=== PATIENT | male | born 1945 | race Caucasian/White ===

== ENCOUNTER 2020-04-24 08:23 | Outpatient (CLI) | payer MEDICARE ==
--- NOTE | 2020-04-24 08:55 | BD ---
EXAM: Bone densitometry using DEXA HISTORY: 74 yo female. Screening for postmenopausal osteoporosis FINDINGS: L1--bone mineral density 0.897 g/sq cm; T score -1.6 ; Z score -0.6 L2--bone mineral density 0.930 g/sq cm; T score -1.5 ; Z score -0.4 L3--bone mineral density 1.104 g/sq cm; T score 0.0 ; Z score 1.1 L4--bone mineral density 1.033 g/sq cm; T score -0.5 ; Z score 0.6 Total L1-L4--bone mineral density 0.999 g/sq cm; T score -0.8 ; Z score 0.2 Left femoral neck--bone mineral density0.691; T score -1.8 ; Z score -0.4 Total proximal left femur--bone mineral density 0.877; T score -1.0 ; Z score -0.2 The 10 year fracture risk for a major osteoporotic fracture is 7.3% and for a hip fracture is 2.4%. IMPRESSION: Osteopenia
== END 2020-04-24 08:24 | disposition home or self-care (01) ==
LOC: BICMAMMO 08:23
PROVIDERS: ATTEND Internal Medicine
DX: Z13.820 Encounter for screening for osteoporosis (principal); M85.852 Other specified disorders of bone density and structure, left thigh
CPT/HCPCS: 77080

== ENCOUNTER 2020-10-16 20:13 | Inpatient (IN) | payer MEDICARE ==
[2020-10-16] MEDS ORDERED: Acetaminophen 500 MG TAB ONE (20:40)
[2020-10-16] MEDS ORDERED: Albuterol 200 PUFF (6.7GM INHALER) ONE (20:57)
[2020-10-16] MEDS ORDERED: methylPREDNISolone Sod Succ/PF 125 MG/2 ML VIAL ONE (20:57)
[2020-10-16 21:21] LABS: #Lymphocytes 0.3 thou/uL (1.20-3.40); #Monocytes 0.4 thou/uL (0.11-0.59); #Neutrophils 5.4 thou/uL (1.40-6.50); %Basophils 0.2 % (0.0-1.0); %Eosinophils 0.1 % (0.0-10.0); %Lymphocytes 4.8 % (21.0-51.0); %Monocytes 6.4 % (0.0-10.0); %Neutrophils 88.5 % (42.0-75.0); Mean Corpuscular HGB CONC 33.8 g/dL (32.0-36.0); Mean Corpuscular Hemoglobin 32.1 pg (27.0-31.0); Mean Corpuscular Volume 94.9 fL (78.0-98.0); Mean Platelet Volume 7.7 fL (7.4-10.4); Platelet Count 136 thou/uL (130-400); RBC Distribution Width 12.1 % (11.5-14.5); Red Blood Cell (RBC) Count 4.35 mill/uL (4.70-6.10); White Blood Cell (WBC) Count 6.1 thou/uL (4.8-10.8)
--- NOTE | 2020-10-16 21:37 | RAD ---
PORTABLE CHEST: 10/16/20 PROVIDED CLINICAL HISTORY: Fever. FINDINGS: Comparison 09/17/17. Cardiac and mediastinal silhouette is unchanged in appearance. Median sternotomy changes and atherosc lerosis are redemonstrated. Emphysematous changes are again seen. There is no focal consolidation, pl eural fluid or pneumothorax apparent. IMPRESSION: No evidence for an acute cardiopulmonary process. POS: MIKE
[2020-10-16 21:40] LABS: ALT (SGPT) 34 U/L (8-55); AST (SGOT) 58 U/L (5-34); Albumin 3.9 g/dL (3.4-4.8); Alkaline Phosphatase 91 U/L (40-110); Anion Gap 17 mmol/L (10-20); BUN (Urea Nitrogen) 17 mg/dL (8.4-25.7); Bilirubin, Total 0.8 mg/dL (0.2-1.2); Calc. Creatinine Clearance 0 mL/min (70-130); Calcium 9.1 mg/dL (7.8-10.44); Carbon Dioxide 21 mmol/L (23-31); Chloride 100 mmol/L (98-107); Globulin 3.3 g/dL (2.4-3.5); Glucose 143 mg/dL (83-110); Potassium 4.2 mmol/L (3.5-5.1); Protein, Total 7.2 g/dL (5.8-8.1); Sodium 134 mmol/L (136-145)
[2020-10-16 22:41] LABS: SARS-CoV-2 NAA Rapid Test DETECTED (NotDetected)
[2020-10-17] MEDS ORDERED: Albuterol 200 PUFF (6.7GM INHALER) INH PRN ×2 (00:51→01:23)
--- NOTE | 2020-10-17 00:55 | PDOC.HHP ---
Hospitalist HPI - History of Present Illness SOB History of Present Illness: Mr. Oconnell is a 75-year-old male with a past medical history of hypertension, hyperlipidemia, status post AVR, CABG, GERD, COPD not on home O2, former tobacco use who presents with fever, myalgias, productive cough. Patient reports his symptoms began 3 days ago with fever and cough, now having shortness of breath. Patient reports he feels very weak and usually is able to ambulate with a walker, however does not have the strength to do so. He denies chest pain, dizziness, changes in vision, numbness, weakness, paresthesias. Patient also reports fevers as high as 103 at home. In emergency room initial vital signs 126/86, 99, 126, 24, 101.1, 9 2% on 2 L nasal cannula. EKG showed sinus tachycardia with no ST changes. Initial troponin 0 0.010. Chest x-ray with no acute findings. White blood cell count 6.1. H/H 14.0/41.2. Lactic acid 1.1. BUN/CR 17/0.92. AST/ALT 58/34. SARS-CoV-2 positive. Patient received albuterol inhaler, Levaquin, 1 L normal saline, 125 mg of methylprednisolone in the emergency room. Patient mated to hospital service for further work-up and monitoring. Hospitalist ROS - Review of Systems Constitutional: reports: fever, chills, weakness, malaise Eyes: denies: pain, vision change, conjunctivae inflammation, eyelid inflammation, redness, other ENT: denies: ear pain, ear discharge, nose pain, nose discharge, nose congestion, mouth pain, mouth swelling, throat pain, throat swelling, other Respiratory: reports: cough, shortness of breath. denies: dry, hemoptysis, SOB with excertion, pleuritic pain, sputum, wheezing, other Cardiovascular: denies: chest pain, palpitations, orthopnea, paroxysmal noc. dyspnea, edema, light headedness, other Gastrointestinal: denies: nausea, vomiting, abdominal pain, diarrhea, constipation, melena, hematochezia, other Genitourinary: denies: dysuria, frequency, incontinence, hematuria, retention, other Musculoskeletal: denies: neck pain, shoulder pain, arm pain, back pain, hand pain, leg pain, foot pain, other Skin: denies: rash, lesions, tin, bruising, other Neurological: denies: weakness, numbness, incoordination, change in speech, confusion, seizures, other - Medication Medications: Home medications include Simvastatin Atenolol No known drug allergies Hospitalist History - Past Medical History Other Medical History: Past medical history includes Hypertension Hyperlipidemia Aortic valve replacement CABG in 2011 GERD COPD not on home O2 - Past Surgical History Other Surgical History: Past surgical history includes CABG in 2012, AVR - Family History Other Family History: No pertinent family history - Social History Smoking Status: Former smoker Tobacco Type: cigarettes Alcohol: reports: None Drugs: reports: none Living Situation: With Family Activity level: uses cane/walker - Exam General Appearance: NAD, awake alert Eye: PERRL, anicteric sclera ENT: normocephalic atraumatic, no oropharyngeal lesions, moist mucosa Neck: supple, symmetric, no JVD, no thyromegaly, no lymphadenopathy, no carotid bruit Heart: RRR, no murmur, no gallops, no rubs, normal peripheral pulses Respiratory: CTAB, no wheezes, no rales, no ronchi, normal chest expansion, no tachypnea, normal percussion Gastrointestinal: soft, non-tender, non-distended, normal bowel sounds, no palpable masses, no hepatomegaly, no splenomegaly, no bruit Extremities: no cyanosis, no clubbing, no edema Skin: normal turgor, no lesions, no rashes Neurological: cranial nerve grossly intact, normal sensation to touch, no weakness, no focal deficits, no new deficit Musculoskeletal: generalized weakness, diffuse muscle atrophy Psychiatric: normal affect, normal behavior, A&O x 3 Psychiatric - other findings: Patient alert and oriented x4, however is easily confused during discussion Hospitalist Results - Labs Result Diagrams: 10/23/20 05:54 10/23/20 05:54 Lab results: WBC 6.1 thou/uL (4.8-10.8) 10/16/20 21:01 Hgb 14.0 g/dL (14.0-18.0) 10/16/20 21:01 Hct 41.2 % (42.0-52.0) L 10/16/20 21:01 MCV 94.9 fL (78.0-98.0) 10/16/20 21:01 Plt Count 136 thou/uL (130-400) 10/16/20 21:01 Neutrophils % 88.5 % (42.0-75.0) H 10/16/20 21:01 Sodium 134 mmol/L (136-145) L 10/16/20 21:01 Potassium 4.2 mmol/L (3.5-5.1) 10/16/20 21:01 Chloride 100 mmol/L (98-107) 10/16/20 21:01 Carbon Dioxide 21 mmol/L (23-31) L 10/16/20 21:01 BUN 17 mg/dL (8.4-25.7) 10/16/20 21:01 Creatinine 0.92 mg/dL (0.7-1.3) 10/16/20 21:01 Glucose 143 mg/dL (83-110) H 10/16/20 21:01 Lactic Acid 1.1 mmol/L (0.5-2.2) 10/16/20 21:01 Calcium 9.1 mg/dL (7.8-10.44) 10/16/20 21:01 Total Bilirubin 0.8 mg/dL (0.2-1.2) 10/16/20 21:01 AST 58 U/L (5-34) H 10/16/20 21:01 ALT 34 U/L (8-55) 10/16/20 21:01 Alkaline Phosphatase 91 U/L (40-110) 10/16/20 21:01 Troponin I Less than 0.010 ng/mL (< 0.028) 10/16/20 21:01 Serum Total Protein 7.2 g/dL (5.8-8.1) 10/16/20 21:01 Albumin 3.9 g/dL (3.4-4.8) 10/16/20 21:01 Hospitalist H&P A/P - Plan Plan: COVID-19 pneumonia 75M with Hx of COPD not on home O2, HTN, HLD, CAD s/p CABG and AVR presents with fevers, cough, and sob found to be COVID positive. WBC 6.1. CXR with no acute findings. Lactic acid 1.1. Patient with new oxygen requirement, now on 2L. Plan -Decadron, will see patient is candidate for remdesivir -Ceftriaxone, azithromycin -Supplemental oxygen -Tylenol, Robitussin -Vitamin C, zinc -We will obtain baseline inflammatory markers Acute hypoxic respiratory failure Patient with acute hypoxic respiratory failure secondary to COVID-19 pneumonia and COPD exacerbation. Patient with new oxygen requirement now on 2 L of oxygen nasal cannula to maintain O2 sat. We will continue supplemental oxygen and closely monitor respiratory status. Treatment as above. Plan -Supplemental oxygen -Treatment as above -Closely monitor respiratory status COPD exacerbation Suspect component of mild COPD exacerbation in setting of COVID infection. Patient reports improvement with proventil. Will continue steroids for COVID and closely monitor respiratory status. Plan -Duonebs prn -Supplemental oxygen -Closely monitor respiratory status Hyperlipidemia Continue home statin Hypertension Continue home antihypertensives once dosage confirmed Coronary artery disease S/p CABG and AVR in 2011. Hx of CAD, however ASA not listed on medication list. Will confirm and continue if needed. DVT prophylaxis- Lovenox FULL CODE Case discussed with Dr. Jack Yañez.
[2020-10-17] MEDS ORDERED: Ondansetron ODT 4 MG TAB PO PRN (01:16)
[2020-10-17] MEDS ORDERED: Acetaminophen 650 MG Suppository PR PRN (01:16)
[2020-10-17] MEDS ORDERED: Acetaminophen 325 MG TAB PO PRN (01:16)
[2020-10-17] MEDS ORDERED: Guaifenesin DM 100-10/5 ML UDCUP PO PRN (01:16)
[2020-10-17] MEDS ORDERED: Ondansetron PF 4 MG/2 ML Vial IVP PRN (01:16)
[2020-10-17 01:23] VITALS: BMI 24.3
[2020-10-17 01:44] LABS: Troponin I Less than 0.010 ng/mL (< 0.028)
[2020-10-17] MEDS: cefTRIAXone\\ROCEPHIN 1 GM in Sodium Chloride 0.9% 100 ML IVPB SCH (02:14)
[2020-10-17] MEDS: Azithromycin 500 MG in Sodium Chloride 0.9% 250 ML 250 ML IVPB SCH (02:17)
[2020-10-17 04:39] LABS: #Basophils 0.1 thou/uL (0.0-0.2); #Lymphocytes 0.2 thou/uL (1.20-3.40); #Monocytes 0.1 thou/uL (0.11-0.59); #Neutrophils 4.7 thou/uL (1.40-6.50); %Basophils 1.7 % (0.0-1.0); %Eosinophils 0.1 % (0.0-10.0); %Lymphocytes 3.4 % (21.0-51.0); %Neutrophils 92.8 % (42.0-75.0); Hemoglobin 13.8 g/dL (14.0-18.0); Mean Corpuscular HGB CONC 32.2 g/dL (32.0-36.0); Mean Corpuscular Hemoglobin 30.7 pg (27.0-31.0); Mean Corpuscular Volume 95.2 fL (78.0-98.0); Mean Platelet Volume 7.7 fL (7.4-10.4); Platelet Count 130 thou/uL (130-400); RBC Distribution Width 12.2 % (11.5-14.5); Red Blood Cell (RBC) Count 4.49 mill/uL (4.70-6.10)
[2020-10-17 04:52] LABS: Anion Gap 20 mmol/L (10-20); BUN (Urea Nitrogen) 16 mg/dL (8.4-25.7); Calc. Creatinine Clearance 79 mL/min (70-130); Calcium 8.9 mg/dL (7.8-10.44); Carbon Dioxide 16 mmol/L (23-31); Chloride 104 mmol/L (98-107); Glucose 254 mg/dL (83-110); Potassium 4.8 mmol/L (3.5-5.1); Sodium 135 mmol/L (136-145)
[2020-10-17 04:58] LABS: Bacteria/HPF None Seen HPF (None Seen); Bilirubin Negative (Negative); Blood, Urine Negative (Negative); Clarity Clear (Clear); Glucose, Urine (Dipstick) 500 mg/dL (Negative); Ketone, Urine 80 mg/dL (Negative); Leukocyte Negative Leu/uL (Negative); Nitrite Negative (Negative); Protein, Urine (Dipstick) Negative (Neg-Trace); RBC/HPF 0-3 HPF (0-3); Specific Gravity, Urine 1.015 (1.002-1.036); Squamous Epithelial None Seen HPF (0-3); Urobilinogen Normal mg/dL (Less than 2); WBC/HPF 0-3 HPF (0-3); pH, Urine 5.5 (5.0-9.0)
[2020-10-17 04:58] LABS: Troponin I Less than 0.010 ng/mL (< 0.028)
[2020-10-17] MEDS ORDERED: REMDESIVIR (EUA) 200 MG in Sodium Chloride 0.9% 250 ML 210 ML IV SCH (08:00)
--- NOTE | 2020-10-17 08:24 | PDOC.HOSPP ---
- Subjective Encounter Date: 10/17/20 Encounter Time: 08:21 Subjective: Patient seen and examined. No new complaints. No overnight events. Still endorses mild SOB, cough. Denies any chest pain, heart palpitations, light headedness, abdominal pain, N/V or diarrhea. Discussed medication regimen. He admits to taking full dose aspirin at home. No further questions. - Objective Vital Signs & Weight: Vital Signs (12 hours) Temp Pulse Resp BP Pulse Ox 10/17/20 05:31 96 10/17/20 04:00 98.6 F 93 22 H 98/60 96 10/17/20 01:16 97 10/17/20 00:40 97 10/17/20 00:37 98 F 105 H 18 152/70 H 97 Weight Weight 174 lb 3.2 oz Result Diagrams: 10/17/20 04:21 10/17/20 04:21 Radiology Reviewed by me: Yes (cxr) EKG Reviewed by me: Yes (tele strips) Hospitalist ROS - Review of Systems Constitutional: reports: malaise Respiratory: reports: cough, dry, shortness of breath (mild). denies: he moptysis, sputum, wheezing Cardiovascular: denies: chest pain, palpitations, edema, light headedness Gastrointestinal: denies: nausea, vomiting, abdominal pain Neurological: denies: incoordination All other systems reviewed; all pertinent +/- noted in HPI/Subj - Medication Medications: Active Medications Generic Name Dose Route Start Last Admin Trade Name Freq PRN Reason Stop Dose Admin Ceftriaxone Sodium 1 gm/ 100 mls @ 200 mls/hr 10/17/20 01:30 10/17/20 02:14 Sodium Chloride IVPB 100 mls Q24HR PRETTY Administration Azithromycin 500 mg/ Sodium 250 mls @ 250 mls/hr 10/17/20 02:00 10/17/20 02:17 Chloride IVPB 250 mls Q24HR PRETTY Administration - Exam General Appearance: NAD, awake alert. negative: ill appearing Eye: anicteric sclera ENT: normocephalic atraumatic Neck: supple Heart: RRR, no gallops, no rubs, normal peripheral pulses, III/IV Respiratory: no tachypnea, rales, rhonchi, wheezes Respiratory - other findings: dimished lower lobes Gastrointestinal: soft, non-tender, non-distended, normal bowel sounds, no guard ing, no rigidity Extremities: no cyanosis, no edema Neurological: no focal deficits Psychiatric: normal affect, A&O x 3 Hosp A/P (1) Pneumonia due to COVID-19 virus Code(s): U07.1 - COVID-19; J12.89 - OTHER VIRAL PNEUMONIA Status: Acute (2) Acute respiratory failure with hypoxia Code(s): J96.01 - ACUTE RESPIRATORY FAILURE WITH HYPOXIA Status: Acute (3) COPD (chronic obstructive pulmonary disease) Status: Chronic (4) CAD (coronary artery disease) Code(s): I25.10 - ATHSCL HEART DISEASE OF [place] CORONARY ARTERY W/O ANG PCTRS Status: Chronic (5) HTN (hypertension) Code(s): I10 - ESSENTIAL (PRIMARY) HYPERTENSION Status: Chronic (6) HLD (hyperlipidemia) Code(s): E78.5 - HYPERLIPIDEMIA, UNSPECIFIED Status: Chronic - Plan Plan: Reviewed labs. Troponins negative. Presented elevated BG reading, check HA1C. Currently on 3L NC 96% Continue antibiotics, steroids, remdesivir and LMWH. Continue nebs prn. Restart home medications, confirms he takes full dose ASA daily. Continue isolation precautions. Trend acute phase reactants.
[2020-10-17] MEDS ORDERED: Atenolol 50 MG TAB PO SCH (09:00)
[2020-10-17] MEDS: Dexamethasone 4 MG TAB PO SCH (09:22)
[2020-10-17] MEDS: Atenolol 50 MG TAB PO SCH (09:24)
[2020-10-17] MEDS: Ascorbic Acid 500 mg Chewable Tablet PO SCH (09:24)
[2020-10-17] MEDS: Aspirin 325 MG TAB PO SCH (09:24)
[2020-10-17] MEDS: Cholecalciferol 1,000 UNITS (25 MCG) TAB PO SCH (09:25)
[2020-10-17] MEDS: Enoxaparin Sodium 40 MG/0.4 ML SYRINGE SC SCH (09:25)
[2020-10-17] MEDS: Zinc Sulfate 220 MG CAP PO SCH (09:26)
[2020-10-17] MEDS: Tamsulosin HCl 0.4 MG CAP PO SCH (09:26)
[2020-10-17 11:45] LABS: Hemoglobin A1c 8.6 % (4.0-6.0)
[2020-10-17] MEDS: Atorvastatin Calcium 10 MG TAB PO SCH (20:14)
[2020-10-18] MEDS: Azithromycin 500 MG in Sodium Chloride 0.9% 250 ML 250 ML IVPB SCH (01:10)
[2020-10-18] MEDS: cefTRIAXone\\ROCEPHIN 1 GM in Sodium Chloride 0.9% 100 ML IVPB SCH (01:10)
[2020-10-18 05:45] LABS: #Lymphocytes 0.3 thou/uL (1.20-3.40); #Monocytes 0.5 thou/uL (0.11-0.59); #Neutrophils 6.3 thou/uL (1.40-6.50); %Eosinophils 0.1 % (0.0-10.0); %Lymphocytes 4.7 % (21.0-51.0); %Monocytes 6.6 % (0.0-10.0); %Neutrophils 88.6 % (42.0-75.0); Hemoglobin 14.3 g/dL (14.0-18.0); Mean Corpuscular HGB CONC 34.1 g/dL (32.0-36.0); Mean Corpuscular Hemoglobin 32.6 pg (27.0-31.0); Mean Corpuscular Volume 95.7 fL (78.0-98.0); Mean Platelet Volume 7.3 fL (7.4-10.4); Platelet Count 158 thou/uL (130-400); RBC Distribution Width 11.9 % (11.5-14.5); Red Blood Cell (RBC) Count 4.38 mill/uL (4.70-6.10); White Blood Cell (WBC) Count 7.2 thou/uL (4.8-10.8)
[2020-10-18 06:03] LABS: Anion Gap 16 mmol/L (10-20); BUN (Urea Nitrogen) 26 mg/dL (8.4-25.7); Calc. Creatinine Clearance 76 mL/min (70-130); Calcium 9.3 mg/dL (7.8-10.44); Carbon Dioxide 25 mmol/L (23-31); Chloride 100 mmol/L (98-107); Glucose 299 mg/dL (83-110); Potassium 4.5 mmol/L (3.5-5.1); Sodium 136 mmol/L (136-145)
--- NOTE | 2020-10-18 08:42 | PDOC.HOSPP ---
- Subjective Encounter Date: 10/18/20 Encounter Time: 08:40 Subjective: Patient complains of difficulty sleeping due to frequent interruptions through the night for antibiotics, vital signs and other interventions. Unable to get out of bed due to bed alarm, therefore has been using urinal in bed but concerned about progressive weakness given the lack of mobility. He states he continues to feel sob and has a persistent cough but unable to bring up any phlegm though he feels it is in his chest. Has not noted any chest pain or hemoptysis. Patient has a history of COPD and normally uses inhalers at home which he has only gotten once while here. They are PRN and patient did not know to ask for inhalers. Denies any wheezing. He is otherwise without any complaints. - Objective Vital Signs & Weight: Vital Signs (12 hours) Temp Pulse Resp BP Pulse Ox 10/18/20 04:00 97.5 F L 80 21 H 118/73 96 10/18/20 03:32 95 10/18/20 01:10 97.7 F 86 18 109/82 95 Weight Weight 174 lb 3.2 oz I&O: 10/17/20 10/18/20 10/19/20 06:59 06:59 06:59 Intake Total 390 Output Total 1100 Balance -710 Result Diagrams: 10/18/20 05:36 10/18/20 05:36 Radiology Reviewed by me: Yes Hospitalist ROS - Review of Systems Constitutional: reports: weakness (generalized weakness) Eyes: denies: pain, vision change, conjunctivae inflammation, eyelid inflammation, redness, other ENT: denies: ear pain, ear discharge, nose pain, nose discharge, nose congestion, mouth pain, mouth swelling, throat pain, throat swelling, other Respiratory: reports: cough, shortness of breath. denies: dry, hemoptysis, SOB with excertion, pleuritic pain, sputum, wheezing, other Cardiovascular: denies: chest pain, palpitations, orthopnea, paroxysmal noc. dyspnea, edema, light headedness, other Gastrointestinal: denies: nausea, vomiting, abdominal pain, diarrhea, constipation, melena, hematochezia, other Genitourinary: denies: dysuria, frequency, incontinence, hematuria, retention, other Musculoskeletal: denies: neck pain, shoulder pain, arm pain, back pain, hand pain, leg pain, foot pain, other Skin: denies: rash, lesions, tin, bruising, other - Medication Medications: Active Medications Generic Name Dose Route Start Last Admin Trade Name Lara PRN Reason Stop Dose Admin Ascorbic Acid 1,000 mg 10/17/20 09:00 10/17/20 09:24 Ascorbic Acid 500 Mg Chewable Tablet PO 1,000 mg DAILY PRETTY Administration Aspirin 325 mg 10/17/20 09:00 10/17/20 09:24 Aspirin 325 Mg Tab PO 325 mg DAILY PRETTY Administration Atenolol 50 mg 10/17/20 09:00 10/17/20 09:24 Atenolol 50 Mg Tab PO 50 mg DAILY PRETYT Administration Atorvastatin Calcium 10 mg 10/17/20 21:00 10/17/20 20:14 Atorvastatin Calcium 10 Mg Tab PO 10 mg HS PRETTY Administration Cholecalciferol 5,000 units 10/17/20 09:00 10/17/20 09:25 Cholecalciferol 1,000 Units (25 Mcg) Tab PO 5,000 units DAILY PRETTY Administration Dexamethasone 6 mg 10/17/20 08:00 10/17/20 09:22 Dexamethasone 4 Mg Tab PO 6 mg QAM- PRETTY Administration Enoxaparin Sodium 40 mg 10/17/20 09:00 10/17/20 09:25 Enoxaparin Sodium 40 Mg/0.4 Ml Syringe SC 40 mg 0900 PRETTY Administration Ceftriaxone Sodium 1 gm/ 100 mls @ 200 mls/hr 10/17/20 01:30 10/18/20 01:10 Sodium Chloride IVPB 100 mls Q24HR PRETTY Administration Azithromycin 500 mg/ Sodium 250 mls @ 250 mls/hr 10/17/20 02:00 10/18/20 01:10 Chloride IVPB 250 mls Q24HR PRETTY Administration Tamsulosin HCl 0.4 mg 10/17/20 09:00 10/17/20 09:26 Tamsulosin Hcl 0.4 Mg Cap PO 0.4 mg DAILY PRETTY Administration Zinc Sulfate 220 mg 10/17/20 09:00 10/17/20 09:26 Zinc Sulfate 220 Mg Cap PO 220 mg DAILY PRETTY Administration - Exam General Appearance: NAD, awake alert Eye: PERRL ENT: normocephalic atraumatic, dry oral mucosa Neck: supple, no lymphadenopathy Heart: RRR, normal peripheral pulses Respiratory: CTAB, normal chest expansion Gastrointestinal: soft, non-tender, non-distended, normal bowel sounds, no guarding, no rigidity Extremities: no edema Skin: no lesions, no rashes Skin - other findings: dry skin Neurological: cranial nerve grossly intact, normal sensation to touch Musculoskeletal: normal tone, normal strength, no muscle wasting Psychiatric: normal affect, normal behavior, A&O x 3 Hosp A/P (1) COVID-19 virus detected Code(s): U07.1 - COVID-19 Status: Acute (2) COPD exacerbation Code(s): J44.1 - CHRONIC OBSTRUCTIVE PULMONARY DISEASE W (ACUTE) EXACERBATION Status: Acute (3) Acute respiratory failure with hypoxia Code(s): J96.01 - ACUTE RESPIRATORY FAILURE WITH HYPOXIA Status: Acute (4) Generalized weakness Code(s): R53.1 - WEAKNESS Status: Acute (5) HTN (hypertension) Code(s): I10 - ESSENTIAL (PRIMARY) HYPERTENSION Status: Chronic (6) CAD (coronary artery disease) Code(s): I25.10 - ATHSCL HEART DISEASE OF [place] CORONARY ARTERY W/O ANG PCTRS Status: Chronic (7) HLD (hyperlipidemia) Code(s): E78.5 - HYPERLIPIDEMIA, UNSPECIFIED Status: Chronic - Plan Shortness of breath: Secondary to COVID and COPD exacerbation Patient is on IV antibiotics (Azithromycin & Rocephin) Consider downgrading to PO azithryomycin only if blood cultures come back negat shirlene Will re-time to 5am per patient request to avoid constant interruptions in the middle of the night (1AM and 2AM currently) Receiving Remdesivir Continue Dexamethasone Remains on O2 by NC Will change inhalers to q4h PRETTY while awake to ensure patient received it Continue Vitamin C and Zinc CTA ordered, in light of no improvement and elevated d-dimer with sedentary state since before admission Gently hydrate due to contrast and monitor renal function Continue to monitor inflammatory markers Check BNP Monitor O2 sats Generalized weakness: No improvement given limited mobility due to Falls Precaution PT consulted If patient without overt weakness, ok to dc falls precautions Will need walker which he uses at home Partially worse due to lack of sleep: retime abx as above and will order melatonin Hypertension: Continue to monitor Home meds have been restarted Hyperlipidemia: Continue statin CAD: S/p CABG and AVR in 2011. Continue Aspirin. Check BNP GI Prophylaxis: Famotidine DVT Prophylaxis: Lovenox FULL CODE STATUS Case discussed with attending who agrees with plan as above. ADDENDUM: Update provided to his ([phone]). She has mentioned he has been significantly week for several weeks prior to coming into the ER and has had multiple falls in the last 2-3 months. This progressively worsened and though he was able to walk with a walker at home, he had become so weak he was unable to lift himself out of bed which was what prompted him seeking medical attention. I have explained PT /OT have been consulted. Due to COVID status would not be able to undergo screening for Rehab. I have placed consult to [facility] for Post Acute Care placement (Skilled/Swing) pending PT/OT assessment.
--- NOTE | 2020-10-18 09:52 | CT ---
CT ANGIO OF CHEST PERFORMED WITH INTRAVENOUS CONTRAST ENHANCEMENT WITH 3D RECONSTRUCTIONS: HISTORY: Persistent shortness of breath. History of fever. COMPARISON: Chest x-ray examination done 10/16/2020. FINDINGS: There are severe emphysematous lung changes seen. There are some patchy opacities in both lung field s, more reticular in nature. These involve the right upper lobe lingula and subpleural bibasilar loc ation. These changes would not be classic for COVID pneumonia, but this possibility would not be exc luded. There is good pulmonary artery opacification. No CT evidence for pulmonary embolus. Thoracic aorta is normal in caliber. Post sternotomy changes are seen. The visualized liver parenchyma shows no focal findings. Gallstones are noted. IMPRESSION: 1. Severe chronic lung changes. Patchy reticular lung changes not quite the typical ground-glass in filtrates seen with COVID pneumonia, but this possibility or other types of atypical infiltrates are not excluded. These areas are difficult to appreciate on plain film. It may be helpful to followup CT for reassessment. 2. No CT evidence for a pulmonary embolus. POS: AH
[2020-10-18] MEDS: Dexamethasone 4 MG TAB PO SCH (10:59)
[2020-10-18] MEDS: Guaifenesin DM 100-10/5 ML UDCUP PO SCH ×4 (11:00→23:21)
[2020-10-18] MEDS: Ascorbic Acid 500 mg Chewable Tablet PO SCH (11:01)
[2020-10-18] MEDS: Atenolol 50 MG TAB PO SCH (11:01)
[2020-10-18] MEDS: Aspirin 325 MG TAB PO SCH (11:01)
[2020-10-18] MEDS: Cholecalciferol 1,000 UNITS (25 MCG) TAB PO SCH (11:01)
[2020-10-18] MEDS: Tamsulosin HCl 0.4 MG CAP PO SCH (11:02)
[2020-10-18] MEDS: Zinc Sulfate 220 MG CAP PO SCH (11:02)
[2020-10-18] MEDS: Enoxaparin Sodium 40 MG/0.4 ML SYRINGE SC SCH (11:02)
[2020-10-18] MEDS: REMDESIVIR (EUA) 100 MG in Sodium Chloride 0.9% 250 ML 230 ML IV SCH (11:02)
[2020-10-18] MEDS: Albuterol 200 PUFF (6.7GM INHALER) INH SCH ×3 (11:03→20:20)
[2020-10-18] MEDS ORDERED: Iopamidol-370 76% 500 ML 1 ML ONE (11:08)
--- NOTE | 2020-10-18 19:05 | CT ---
CT HEAD WITHOUT IV CONTRAST COMPARISON: None HISTORY: Injury after a fall. Covid positive. TECHNIQUE: Axial CT imaging at 5 mm intervals from vertex through skull base without contrast FINDINGS: There is mild cerebral volume loss. There is no evidence of an acute infarction, hemorrhage, mass eff ect, or midline shift. Ventricular system is normal in size, shape, and position for the degree of sulcal atrophy. Skull base has a normal CT appearance. Visualized paranasal sinuses are clear. Osseous structures appear intact. IMPRESSION: 1. No acute intracranial abnormality demonstrated.
[2020-10-18] MEDS: Atorvastatin Calcium 10 MG TAB PO SCH (20:21)
[2020-10-18 22:23] LABS: Anion Gap 15 mmol/L (10-20); BUN (Urea Nitrogen) 27 mg/dL (8.4-25.7); Calc. Creatinine Clearance 69 mL/min (70-130); Carbon Dioxide 22 mmol/L (23-31); Chloride 101 mmol/L (98-107); Glucose 415 mg/dL (83-110); Potassium 4.4 mmol/L (3.5-5.1); Sodium 134 mmol/L (136-145)
[2020-10-18 23:25] LABS: Bacteria/HPF None Seen HPF (None Seen); Bilirubin Negative (Negative); Blood, Urine 2+ (Negative); Clarity Clear (Clear); Glucose, Urine (Dipstick) Greater than 1000 mg/dL (Negative); Ketone, Urine Trace mg/dL (Negative); Leukocyte Negative Leu/uL (Negative); Nitrite Negative (Negative); Protein, Urine (Dipstick) Negative (Neg-Trace); RBC/HPF Greater than 50 HPF (0-3); Specific Gravity, Urine 1.033 (1.002-1.036); Squamous Epithelial None Seen HPF (0-3); WBC/HPF 0-3 HPF (0-3)
[2020-10-19] MEDS: Guaifenesin DM 100-10/5 ML UDCUP PO SCH ×4 (01:00→14:07)
[2020-10-19] MEDS: cefTRIAXone\\ROCEPHIN 1 GM in Sodium Chloride 0.9% 100 ML IVPB SCH (05:27)
[2020-10-19] MEDS: Azithromycin 500 MG in Sodium Chloride 0.9% 250 ML 250 ML IVPB SCH (05:29)
[2020-10-19 05:56] LABS: #Lymphocytes 0.6 thou/uL (1.20-3.40); #Monocytes 0.8 thou/uL (0.11-0.59); #Neutrophils 8.4 thou/uL (1.40-6.50); %Eosinophils 0.1 % (0.0-10.0); %Lymphocytes 5.7 % (21.0-51.0); %Monocytes 7.9 % (0.0-10.0); %Neutrophils 86.2 % (42.0-75.0); Mean Corpuscular HGB CONC 33.8 g/dL (32.0-36.0); Mean Corpuscular Hemoglobin 31.9 pg (27.0-31.0); Mean Corpuscular Volume 94.3 fL (78.0-98.0); Mean Platelet Volume 7.4 fL (7.4-10.4); Platelet Count 156 thou/uL (130-400); RBC Distribution Width 11.9 % (11.5-14.5); Red Blood Cell (RBC) Count 4.09 mill/uL (4.70-6.10); White Blood Cell (WBC) Count 9.8 thou/uL (4.8-10.8)
[2020-10-19 06:14] LABS: Lactic Acid 1.1 mmol/L (0.5-2.2)
[2020-10-19 06:17] LABS: Anion Gap 13 mmol/L (10-20); BUN (Urea Nitrogen) 24 mg/dL (8.4-25.7); Calc. Creatinine Clearance 84 mL/min (70-130); Calcium 8.5 mg/dL (7.8-10.44); Carbon Dioxide 25 mmol/L (23-31); Chloride 99 mmol/L (98-107); Glucose 315 mg/dL (83-110); Potassium 4.1 mmol/L (3.5-5.1); Sodium 133 mmol/L (136-145)
[2020-10-19] MEDS: Albuterol 200 PUFF (6.7GM INHALER) INH SCH ×4 (07:09→18:11)
--- NOTE | 2020-10-19 07:42 | PDOC.HOSPP ---
- Subjective Encounter Date: 10/19/20 Encounter Time: 07:40 Subjective: still fatigued. PRATT persists. - Objective Vital Signs & Weight: Vital Signs (12 hours) Temp Pulse Resp BP Pulse Ox 10/19/20 04:55 98.2 F 86 17 109/64 95 10/19/20 04:20 94 L 10/18/20 23:40 98.2 F 81 16 106/63 94 L 10/18/20 20:50 97.6 F 10/18/20 20:20 78 19 116/72 97 Weight Weight 174 lb 3.2 oz I&O: 10/18/20 10/19/20 10/20/20 06:59 06:59 06:59 Intake Total 390 300 Output Total 1100 850 Balance -710 -550 Result Diagrams: 10/19/20 05:36 10/19/20 05:36 Hospitalist ROS - Medication Medications: Active Medications Generic Name Dose Route Start Last Admin Trade Name Freq PRN Reason Stop Dose Admin Albuterol Sulfate 2 puff 10/18/20 11:00 10/19/20 07:09 Albuterol 200 Puff (6.7gm Inhaler) INH 2 puff [id number] PRETTY Administration Ascorbic Acid 1,000 mg 10/17/20 09:00 10/18/20 11:01 Ascorbic Acid 500 Mg Chewable Tablet PO 1,000 mg DAILY PRETTY Administration Aspirin 325 mg 10/17/20 09:00 10/18/20 11:01 Aspirin 325 Mg Tab PO 325 mg DAILY PRETTY Administration Atenolol 50 mg 10/17/20 09:00 10/18/20 11:01 Atenolol 50 Mg Tab PO 50 mg DAILY PRETTY Administration Atorvastatin Calcium 10 mg 10/17/20 21:00 10/18/20 20:21 Atorvastatin Calcium 10 Mg Tab PO 10 mg HS PRETTY Administration Cholecalciferol 5,000 units 10/17/20 09:00 10/18/20 11:01 Cholecalciferol 1,000 Units (25 Mcg) Tab PO 5,000 units DAILY PRETTY Administration Dexamethasone 6 mg 10/17/20 08:00 10/18/20 10:59 Dexamethasone 4 Mg Tab PO 6 mg QAM-WM PRETTY Administration Enoxaparin Sodium 40 mg 10/17/20 09:00 10/18/20 11:02 Enoxaparin Sodium 40 Mg/0.4 Ml Syringe SC 40 mg 0900 PRETTY Administration Guaifenesin/Dextromethorphan 15 ml 10/18/20 08:45 10/19/20 02:12 Guaifenesin Dm 100-10/5 Ml Udcup PO Not Given Q6H PRETTY Remdesivir 100 mg/ Sodium 250 mls @ 250 mls/hr 10/18/20 09:00 10/18/20 11:02 Chloride IV 10/21/20 09:59 250 mls 0900 PRETTY Administration Azithromycin 500 mg/ Sodium 250 mls @ 250 mls/hr 10/19/20 05:00 10/19/20 05:29 Chloride IVPB 250 mls 0500 PRETTY Administration Ceftriaxone Sodium 1 gm/ 100 mls @ 200 mls/hr 10/19/20 05:00 10/19/20 05:27 Sodium Chloride IVPB 100 mls 0500 PRETTY Administration Tamsulosin HCl 0.4 mg 10/17/20 09:00 10/18/20 11:02 Tamsulosin Hcl 0.4 Mg Cap PO 0.4 mg DAILY PRETTY Administration Zinc Sulfate 220 mg 10/17/20 09:00 10/18/20 11:02 Zinc Sulfate 220 Mg Cap PO 220 mg DAILY PRETTY Administration - Exam General Appearance: awake alert Neck: no JVD Heart: RRR, no murmur Respiratory: no wheezes, no ronchi Respiratory - other findings: adequate BS. scant fine rales Gastrointestinal: soft, non-distended, normal bowel sounds Extremities: no edema Hosp A/P (1) Pneumonia due to COVID-19 virus Code(s): U07.1 - COVID-19; J12.89 - OTHER VIRAL PNEUMONIA Status: Acute (2) DM (diabetes mellitus), type 2, uncontrolled Code(s): E11.65 - TYPE 2 DIABETES MELLITUS WITH HYPERGLYCEMIA Status: Acute Qualifiers: Glycemic state: with hyperglycemia Qualified Code(s): E11.65 - Type 2 diabetes mellitus with hyperglycemia (3) Acute respiratory failure with hypoxia Code(s): J96.01 - ACUTE RESPIRATORY FAILURE WITH HYPOXIA Status: Acute (4) Generalized weakness Code(s): R53.1 - WEAKNESS Status: Acute (5) CAD (coronary artery disease) Code(s): I25.10 - ATHSCL HEART DISEASE OF [place] CORONARY ARTERY W/O ANG PCTRS Status: Chronic Qualifiers: Coronary Disease-Associated Artery/Lesion type: [place] artery [place] vs. transplanted heart: [place] heart Associated angina: without angina Qualified Code(s): I25.10 - Atherosclerotic heart disease of [place] coronary artery without angina pectoris (6) COPD (chronic obstructive pulmonary disease) Status: Chronic Qualifiers: Emphysema type: unspecified (7) HLD (hyperlipidemia) Code(s): E78.5 - HYPERLIPIDEMIA, UNSPECIFIED Status: Chronic (8) HTN (hypertension) Code(s): I10 - ESSENTIAL (PRIMARY) HYPERTENSION Status: Chronic Qualifiers: Hypertension type: essential hypertension Qualified Code(s): I10 - E ssential (primary) hypertension - Plan 1. COVID- on remdesivir, decadron, O2 supplementation 2. COPD- albuteral inhaler 3 DM 2, HgA1c 8.6, patient unaware of Dx start accu/ss/ AM levemir 4. selected home meds
[2020-10-19] MEDS ORDERED: Dextrose 5% in Water 1,000 ML IV PRN (07:47)
[2020-10-19] MEDS ORDERED: Dextrose 50% Abboject 50 ML SYRINGE SLOW IVP PRN (07:47)
[2020-10-19] MEDS: Dexamethasone 4 MG TAB PO SCH (09:15)
[2020-10-19] MEDS: Atenolol 50 MG TAB PO SCH (09:18)
[2020-10-19] MEDS: Ascorbic Acid 500 mg Chewable Tablet PO SCH (09:18)
[2020-10-19] MEDS: Aspirin 325 MG TAB PO SCH (09:18)
[2020-10-19] MEDS: Enoxaparin Sodium 40 MG/0.4 ML SYRINGE SC SCH (09:19)
[2020-10-19] MEDS: Cholecalciferol 1,000 UNITS (25 MCG) TAB PO SCH (09:19)
[2020-10-19] MEDS: Insulin Glargine 10 UNITS in Pre-Filled Syringe 1 EACH SC SCH (09:19)
[2020-10-19] MEDS: Tamsulosin HCl 0.4 MG CAP PO SCH (09:20)
[2020-10-19] MEDS: REMDESIVIR (EUA) 100 MG in Sodium Chloride 0.9% 250 ML 230 ML IV SCH (09:20)
[2020-10-19] MEDS: Zinc Sulfate 220 MG CAP PO SCH (09:20)
[2020-10-19] MEDS: HumaLOG 300 UNITS/3 ML VIAL SC PRN ×3 (11:58→20:40)
[2020-10-19] MEDS: Atorvastatin Calcium 10 MG TAB PO SCH (20:40)
[2020-10-19] MEDS: Diabetic Tussin DM 5 ML UDCUP PO SCH (21:13)
[2020-10-20] MEDS: Diabetic Tussin DM 5 ML UDCUP PO SCH (03:48)
[2020-10-20] MEDS: cefTRIAXone\\ROCEPHIN 1 GM in Sodium Chloride 0.9% 100 ML IVPB SCH (04:00)
[2020-10-20] MEDS: HumaLOG 300 UNITS/3 ML VIAL SC PRN ×4 (06:01→21:01)
[2020-10-20] MEDS: Azithromycin 500 MG in Sodium Chloride 0.9% 250 ML 250 ML IVPB SCH (06:04)
[2020-10-20] MEDS: Albuterol 200 PUFF (6.7GM INHALER) INH SCH ×4 (06:31→18:07)
[2020-10-20 06:45] LABS: #Lymphocytes 0.7 thou/uL (1.20-3.40); #Monocytes 0.9 thou/uL (0.11-0.59); #Neutrophils 6.9 thou/uL (1.40-6.50); %Basophils 0.1 % (0.0-1.0); %Eosinophils 0.1 % (0.0-10.0); %Lymphocytes 8.3 % (21.0-51.0); %Monocytes 10.5 % (0.0-10.0); %Neutrophils 81.1 % (42.0-75.0); Hemoglobin 12.8 g/dL (14.0-18.0); Mean Corpuscular HGB CONC 33.2 g/dL (32.0-36.0); Mean Corpuscular Hemoglobin 31.4 pg (27.0-31.0); Mean Corpuscular Volume 94.6 fL (78.0-98.0); Mean Platelet Volume 7.5 fL (7.4-10.4); Platelet Count 149 thou/uL (130-400); RBC Distribution Width 11.9 % (11.5-14.5); Red Blood Cell (RBC) Count 4.08 mill/uL (4.70-6.10); White Blood Cell (WBC) Count 8.6 thou/uL (4.8-10.8)
[2020-10-20 07:00] LABS: Anion Gap 15 mmol/L (10-20); BUN (Urea Nitrogen) 22 mg/dL (8.4-25.7); Calc. Creatinine Clearance 87 mL/min (70-130); Calcium 8.6 mg/dL (7.8-10.44); Carbon Dioxide 26 mmol/L (23-31); Chloride 101 mmol/L (98-107); Glucose 203 mg/dL (83-110); Potassium 4.2 mmol/L (3.5-5.1); Sodium 138 mmol/L (136-145)
[2020-10-20] MEDS: Dexamethasone 4 MG TAB PO SCH (08:13)
[2020-10-20] MEDS: Tamsulosin HCl 0.4 MG CAP PO SCH (08:13)
[2020-10-20] MEDS: Cholecalciferol 1,000 UNITS (25 MCG) TAB PO SCH (08:13)
[2020-10-20] MEDS: Zinc Sulfate 220 MG CAP PO SCH (08:14)
[2020-10-20] MEDS: Ascorbic Acid 500 mg Chewable Tablet PO SCH (08:14)
[2020-10-20] MEDS: Aspirin 325 MG TAB PO SCH (08:14)
[2020-10-20] MEDS: Enoxaparin Sodium 40 MG/0.4 ML SYRINGE SC SCH (08:14)
[2020-10-20] MEDS: Atenolol 50 MG TAB PO SCH (09:09)
[2020-10-20] MEDS: Insulin Glargine 10 UNITS in Pre-Filled Syringe 1 EACH SC SCH (09:09)
[2020-10-20] MEDS: Guaifenesin DM 100-10/5 ML UDCUP PO SCH ×3 (09:09→21:01)
[2020-10-20] MEDS: REMDESIVIR (EUA) 100 MG in Sodium Chloride 0.9% 250 ML 230 ML IV SCH (09:57)
--- NOTE | 2020-10-20 12:16 | EKG ---
Test Reason : Blood Pressure : / mmHG Vent. Rate : 123 BPM Atrial Rate : 123 BPM P-R Int : 118 ms QRS Dur : 086 ms QT Int : 316 ms P-R-T Axes : 060 056 033 degrees QTc Int : 452 ms Sinus tachycardia Nonspecific ST abnormality Abnormal ECG Confirmed by ANTWON LAM ([id number]), food editor RANDY VELASQUEZ ([id number]) on 10/20/2020 12:15:45 PM Referred By: Confirmed By:ANTWON LAM
--- NOTE | 2020-10-20 14:20 | PDOC.HOSPP ---
- Subjective Encounter Date: 10/20/20 Encounter Time: 07:00 Subjective: Patient seen for follow-up regarding COVID-19 pneumonia. Reports cough. - Objective Vital Signs & Weight: Vital Signs (12 hours) Temp Pulse Resp BP BP Pulse Ox 10/20/20 13:40 97.9 F 77 20 111/69 100 10/20/20 12:41 97.9 F 77 20 111/69 98 10/20/20 09:30 97 10/20/20 09:09 75 129/71 10/20/20 08:00 97.9 F 75 20 129/71 97 Weight Weight 174 lb 3.2 oz I&O: 10/19/20 10/20/20 10/21/20 06:59 06:59 06:59 Intake Total 300 Output Total 850 Balance -550 Result Diagrams: 10/20/20 05:58 10/20/20 05:58 Additional Labs: Accuchecks 10/20/20 10/19/20 10/19/20 04:05 20:34 16:51 POC Glucose 175 H 331 H 279 H Labs and MAR reviewed by pa Hospitalist ROS - Review of Systems Respiratory: reports: cough, dry, SOB with excertion. denies: shortness of breath, hemoptysis, pleuritic pain, sputum, wheezing Cardiovascular: denies: chest pain, palpitations, orthopnea, paroxysmal noc. dyspnea, edema, light headedness - Medication Medications: Active Medications Generic Name Dose Route Start Last Admin Trade Name Freq PRN Reason Stop Dose Admin Albuterol Sulfate 2 puff 10/18/20 11:00 10/20/20 14:10 Albuterol 200 Puff (6.7gm Inhaler) INH 2 puff [id number] PRETTY Administration Ascorbic Acid 1,000 mg 10/17/20 09:00 10/20/20 08:14 Ascorbic Acid 500 Mg Chewable Tablet PO 1,000 mg DAILY PRETTY Administration Aspirin 325 mg 10/17/20 09:00 10/20/20 08:14 Aspirin 325 Mg Tab PO 325 mg DAILY PRETTY Administration Atenolol 50 mg 10/17/20 09:00 10/20/20 09:09 Atenolol 50 Mg Tab PO 50 mg DAILY PRETTY Administration Atorvastatin Calcium 10 mg 10/17/20 21:00 10/19/20 20:40 Atorvastatin Calcium 10 Mg Tab PO 10 mg HS PRETTY Administration Cholecalciferol 5,000 units 10/17/20 09:00 10/20/20 08:13 Cholecalciferol 1,000 Units (25 Mcg) Tab PO 5,000 units DAILY PRETTY Administration Dexamethasone 6 mg 10/17/20 08:00 10/20/20 08:13 Dexamethasone 4 Mg Tab PO 6 mg QAM-WM PRETTY Administration Enoxaparin Sodium 40 mg 10/17/20 09:00 10/20/20 08:14 Enoxaparin Sodium 40 Mg/0.4 Ml Syringe SC 40 mg 0900 PRETTY Administration Guaifenesin/Dextromethorphan 15 ml 10/20/20 09:00 10/20/20 14:10 Guaifenesin Dm 100-10/5 Ml Udcup PO 15 ml 0300,0900,1500,2100 PRETTY Administration Remdesivir 100 mg/ Sodium 250 mls @ 250 mls/hr 10/18/20 09:00 10/20/20 09:57 Chloride IV 10/21/20 09:59 250 mls 0900 PRETTY Administration Azithromycin 500 mg/ Sodium 250 mls @ 250 mls/hr 10/19/20 05:00 10/20/20 06:04 Chloride IVPB 250 mls 0500 PRETTY Administration Ceftriaxone Sodium 1 gm/ 100 mls @ 200 mls/hr 10/19/20 05:00 10/20/20 04:00 Sodium Chloride IVPB 100 mls 0500 PRETTY Administration Insulin Glargine 10 units/ 0.1 mls @ 0 mls/hr 10/19/20 09:00 10/20/20 09:09 Miscellaneous Medication SC 0.1 mls QAM PRETTY Administration Insulin Human Lispro 0 units 10/19/20 07:47 10/20/20 11:12 Humalog 300 Units/3 Ml Vial SC 8 unit .MODERATE SLIDING SC PRN Administration Moderate Correctional Scale Tamsulosin HCl 0.4 mg 10/17/20 09:00 10/20/20 08:13 Tamsulosin Hcl 0.4 Mg Cap PO 0.4 mg DAILY PRETTY Administration Zinc Sulfate 220 mg 10/17/20 09:00 10/20/20 08:14 Zinc Sulfate 220 Mg Cap PO 220 mg DAILY PRETTY Administration - Exam General Appearance: awake alert Eye: anicteric sclera ENT: normocephalic atraumatic Neck: supple Heart: RRR Respiratory: rhonchi Gastrointestinal: soft, non-tender Skin: no rashes Psychiatric: normal affect, normal behavior Hosp A/P - Plan - assessment (1) Pneumonia due to COVID-19 virus Code(s): U07.1 - COVID-19; J12.89 - OTHER VIRAL PNEUMONIA Status: Acute (2) Acute respiratory failure with hypoxia Code(s): J96.01 - ACUTE RESPIRATORY FAILURE WITH HYPOXIA Status: Acute (3) Generalized weakness Code(s): R53.1 - WEAKNESS Status: Acute (4) DM (diabetes mellitus), type 2, uncontrolled Code(s): E11.65 - TYPE 2 DIABETES MELLITUS WITH HYPERGLYCEMIA Status: Acute Qualifiers: Glycemic state: with hyperglycemia Qualified Code(s): E11.65 - Type 2 diabetes mellitus with hyperglycemia (5) CAD (coronary artery disease) Code(s): I25.10 - ATHSCL HEART DISEASE OF [place] CORONARY ARTERY W/O ANG PCTRS Status: Chronic Qualifiers: Coronary Disease-Associated Artery/Lesion type: [place] artery [place] vs. transplanted heart: [place] heart Associated angina: without angina Qualified Code(s): I25.10 - Atherosclerotic heart disease of [place] coronary artery without angina pectoris (6) COPD (chronic obstructive pulmonary disease) Status: Chronic Qualifiers: Emphysema type: unspecified (7) HTN (hypertension) Code(s): I10 - ESSENTIAL (PRIMARY) HYPERTENSION Status: Chronic Qualifiers: Hypertension type: essential hypertension Qualified Code(s): I10 - Essential (primary) hypertension (8) HLD (hyperlipidemia) Code(s): E78.5 - HYPERLIPIDEMIA, UNSPECIFIED Status: Chronic - Plan Continue oxygen, dexamethasone, remdesivir, vitamin C and zinc. New diagnosis of diabetes mellitus type 2. Continue albuterol inhaler. Final dose of remdesivir will be on October 21, 2020. Hypertension controlled and stable.
[2020-10-20] MEDS: Atorvastatin Calcium 10 MG TAB PO SCH (21:01)
[2020-10-21] MEDS: cefTRIAXone\\ROCEPHIN 1 GM in Sodium Chloride 0.9% 100 ML IVPB SCH (04:03)
[2020-10-21] MEDS: Guaifenesin DM 100-10/5 ML UDCUP PO SCH ×4 (04:13→20:22)
[2020-10-21] MEDS: Azithromycin 500 MG in Sodium Chloride 0.9% 250 ML 250 ML IVPB SCH (05:52)
[2020-10-21] MEDS: HumaLOG 300 UNITS/3 ML VIAL SC PRN ×3 (05:53→16:50)
[2020-10-21] MEDS: Albuterol 200 PUFF (6.7GM INHALER) INH SCH ×4 (05:53→20:21)
[2020-10-21] MEDS: Cholecalciferol 1,000 UNITS (25 MCG) TAB PO SCH (08:44)
[2020-10-21] MEDS: Aspirin 325 MG TAB PO SCH (08:44)
[2020-10-21] MEDS: Dexamethasone 4 MG TAB PO SCH (08:44)
[2020-10-21] MEDS: Zinc Sulfate 220 MG CAP PO SCH (08:45)
[2020-10-21] MEDS: Enoxaparin Sodium 40 MG/0.4 ML SYRINGE SC SCH (08:45)
[2020-10-21] MEDS: Tamsulosin HCl 0.4 MG CAP PO SCH (08:45)
[2020-10-21] MEDS: Ascorbic Acid 500 mg Chewable Tablet PO SCH (08:45)
[2020-10-21] MEDS: Atenolol 50 MG TAB PO SCH (08:45)
[2020-10-21] MEDS: Insulin Glargine 10 UNITS in Pre-Filled Syringe 1 EACH SC SCH (08:46)
[2020-10-21] MEDS: REMDESIVIR (EUA) 100 MG in Sodium Chloride 0.9% 250 ML 230 ML IV SCH (11:04)
--- NOTE | 2020-10-21 14:29 | PDOC.HOSPP ---
- Subjective Encounter Date: 10/21/20 Encounter Time: 11:00 Subjective: Patient seen for follow-up regarding COVID-19 pneumonia. Denies chest pain or shortness of breath. - Objective Vital Signs & Weight: Vital Signs (12 hours) Temp Pulse Resp BP Pulse Ox 10/21/20 08:45 86 10/21/20 08:00 98.5 F 72 20 113/70 96 Weight Weight 174 lb 3.2 oz I&O: 10/20/20 10/21/20 10/22/20 06:59 06:59 06:59 Intake Total 970 Output Total 400 Balance 570 Result Diagrams: 10/20/20 05:58 10/20/20 05:58 Additional Labs: Accuchecks 10/21/20 10/21/20 10/20/20 11:10 05:57 19:52 POC Glucose 214 H 198 H 326 H 10/20/20 16:07 POC Glucose 314 H I reviewed patient's labs and MAR Hospitalist ROS - Review of Systems Cardiovascular: denies: chest pain, palpitations, orthopnea, paroxysmal noc. dys pnea, edema, light headedness Gastrointestinal: denies: nausea, vomiting, abdominal pain, diarrhea, constipation, melena, hematochezia - Medication Medications: Active Medications Generic Name Dose Route Start Last Admin Trade Name Freq PRN Reason Stop Dose Admin Albuterol Sulfate 2 puff 10/18/20 11:00 10/21/20 11:04 Albuterol 200 Puff (6.7gm Inhaler) INH 2 puff [id number] PRETTY Administration Ascorbic Acid 1,000 mg 10/17/20 09:00 10/21/20 08:45 Ascorbic Acid 500 Mg Chewable Tablet PO 1,000 mg DAILY PRETTY Administration Aspirin 325 mg 10/17/20 09:00 10/21/20 08:44 Aspirin 325 Mg Tab PO 325 mg DAILY PRETTY Administration Atenolol 50 mg 10/17/20 09:00 10/21/20 08:45 Atenolol 50 Mg Tab PO 50 mg DAILY PRETTY Administration Atorvastatin Calcium 10 mg 10/17/20 21:00 10/20/20 21:01 Atorvastatin Calcium 10 Mg Tab PO 10 mg HS PRETTY Administration Cholecalciferol 5,000 units 10/17/20 09:00 10/21/20 08:44 Cholecalciferol 1,000 Units (25 Mcg) Tab PO 5,000 units DAILY PRETTY Administration Dexamethasone 6 mg 10/17/20 08:00 10/21/20 08:44 Dexamethasone 4 Mg Tab PO 6 mg QAM-WM PRETTY Administration Enoxaparin Sodium 40 mg 10/17/20 09:00 10/21/20 08:45 Enoxaparin Sodium 40 Mg/0.4 Ml Syringe SC 40 mg 0900 PRETTY Administration Guaifenesin/Dextromethorphan 15 ml 10/20/20 09:00 10/21/20 08:46 Guaifenesin Dm 100-10/5 Ml Udcup PO 15 ml 0300,0900,1500,2100 PRETTY Administration Azithromycin 500 mg/ Sodium 250 mls @ 250 mls/hr 10/19/20 05:00 10/21/20 05:52 Chloride IVPB 250 mls 0500 PRETTY Administration Ceftriaxone Sodium 1 gm/ 100 mls @ 200 mls/hr 10/19/20 05:00 10/21/20 04:03 Sodium Chloride IVPB 100 mls 0500 PRETTY Administration Insulin Glargine 10 units/ 0.1 mls @ 0 mls/hr 10/19/20 09:00 10/21/20 08:46 Miscellaneous Medication SC 0.1 mls QAM PRETTY Administration Insulin Human Lispro 0 units 10/19/20 07:47 10/21/20 11:46 Humalog 300 Units/3 Ml Vial SC 4 unit .MODERATE SLIDING SC PRN Administration Moderate Correctional Scale Tamsulosin HCl 0.4 mg 10/17/20 09:00 10/21/20 08:45 Tamsulosin Hcl 0.4 Mg Cap PO 0.4 mg DAILY PRETTY Administration Zinc Sulfate 220 mg 10/17/20 09:00 10/21/20 08:45 Zinc Sulfate 220 Mg Cap PO 220 mg DAILY PRETTY Administration - Exam General Appearance: awake alert Eye: anicteric sclera ENT: normocephalic atraumatic Neck: supple Heart: RRR Respiratory: CTAB Gastrointestinal: soft, non-tender Extremities: no edema Skin: no rashes Psychiatric: normal affect, normal behavior Hosp A/P - Plan - assessment (1) Pneumonia due to COVID-19 virus Code(s): U07.1 - COVID-19; J12.89 - OTHER VIRAL PNEUMONIA Status: Acute (2) Acute respiratory failure with hypoxia Code(s): J96.01 - ACUTE RESPIRATORY FAILURE WITH HYPOXIA Status: Acute (3) Generalized weakness Code(s): R53.1 - WEAKNESS Status: Acute (4) DM (diabetes mellitus), type 2, uncontrolled Code(s): E11.65 - TYPE 2 DIABETES MELLITUS WITH HYPERGLYCEMIA Status: Acute Qualifiers: Glycemic state: with hyperglycemia Qualified Code(s): E11.65 - Type 2 diabetes mellitus with hyperglycemia (5) CAD (coronary artery disease) Code(s): I25.10 - ATHSCL HEART DISEASE OF [place] CORONARY ARTERY W/O ANG PCTRS Status: Chronic Qualifiers: Coronary Disease-Associated Artery/Lesion type: [place] artery [place] vs. transplanted heart: [place] heart Associated angina: without angina Qualified Code(s): I25.10 - Atherosclerotic heart disease of [place] coronary artery without angina pectoris (6) COPD (chronic obstructive pulmonary disease) Status: Chronic Qualifiers: Emphysema type: unspecified (7) HTN (hypertension) Code(s): I10 - ESSENTIAL (PRIMARY) HYPERTENSION Status: Chronic Qualifiers: Hypertension type: essential hypertension Qualified Code(s): I10 - Essential (primary) hypertension (8) HLD (hyperlipidemia) Code(s): E78.5 - HYPERLIPIDEMIA, UNSPECIFIED Status: Chronic - Plan Continue oxygen, dexamethasone, vitamin C and zinc. New diagnosis of diabetes mellitus type 2. Continue albuterol inhaler. Final dose of remdesivir will be today, October 21, 2020. Hypertension controlled and stable. Inpatient rehab screen.
[2020-10-21] MEDS: Atorvastatin Calcium 10 MG TAB PO SCH (20:22)
[2020-10-22] MEDS: Guaifenesin DM 100-10/5 ML UDCUP PO SCH ×4 (02:39→20:47)
[2020-10-22] MEDS: cefTRIAXone\\ROCEPHIN 1 GM in Sodium Chloride 0.9% 100 ML IVPB SCH (03:40)
[2020-10-22] MEDS: Azithromycin 500 MG in Sodium Chloride 0.9% 250 ML 250 ML IVPB SCH (04:47)
[2020-10-22] MEDS: HumaLOG 300 UNITS/3 ML VIAL SC PRN ×3 (04:49→15:58)
[2020-10-22] MEDS: Albuterol 200 PUFF (6.7GM INHALER) INH SCH ×4 (05:50→20:46)
[2020-10-22] MEDS: Dexamethasone 4 MG TAB PO SCH (09:16)
[2020-10-22] MEDS: Aspirin 325 MG TAB PO SCH (09:16)
--- NOTE | 2020-10-22 09:16 | PDOC.HOSPP ---
- Subjective Encounter Date: 10/22/20 Encounter Time: 12:00 Subjective: Patient reports feeling a bit better. Still with cough and SOB. No chest pain. - Objective Vital Signs & Weight: Vital Signs (12 hours) Temp Pulse Resp BP Pulse Ox 10/22/20 04:00 99.3 F 84 18 144/83 H 100 10/22/20 00:00 98.8 F 80 18 128/77 99 Weight Weight 174 lb 3.2 oz I&O: 10/21/20 10/22/20 10/23/20 06:59 06:59 06:59 Intake Total 970 850 Output Total 400 600 Balance 570 250 Result Diagrams: 10/20/20 05:58 10/20/20 05:58 Additional Labs: Accuchecks 10/22/20 10/21/20 10/21/20 04:43 20:24 15:52 POC Glucose 215 H 275 H 307 H 10/21/20 11:10 POC Glucose 214 H Hospitalist ROS - Review of Systems Constitutional: denies: fever, chills Respiratory: reports: cough, shortness of breath, SOB with excertion Cardiovascular: denies: chest pain, palpitations Gastrointestinal: denies: nausea, vomiting, abdominal pain - Medication Medications: Active Medications Generic Name Dose Route Start Last Admin Trade Name Freq PRN Reason Stop Dose Admin Albuterol Sulfate 2 puff 10/18/20 11:00 10/22/20 05:50 Albuterol 200 Puff (6.7gm Inhaler) INH 2 puff [id number] PRETTY Administration Ascorbic Acid 1,000 mg 10/17/20 09:00 10/21/20 08:45 Ascorbic Acid 500 Mg Chewable Tablet PO 1,000 mg DAILY PRETTY Administration Aspirin 325 mg 10/17/20 09:00 10/21/20 08:44 Aspirin 325 Mg Tab PO 325 mg DAILY PRETTY Administration Atenolol 50 mg 10/17/20 09:00 10/21/20 08:45 Atenolol 50 Mg Tab PO 50 mg DAILY PRETTY Administration Atorvastatin Calcium 10 mg 10/17/20 21:00 10/21/20 20:22 Atorvastatin Calcium 10 Mg Tab PO 10 mg HS PRETTY Administration Cholecalciferol 5,000 units 10/17/20 09:00 10/21/20 08:44 Cholecalciferol 1,000 Units (25 Mcg) Tab PO 5,000 units DAILY PRETTY Administration Dexamethasone 6 mg 10/17/20 08:00 10/21/20 08:44 Dexamethasone 4 Mg Tab PO 6 mg QAM-WM PRETTY Administration Enoxaparin Sodium 40 mg 10/17/20 09:00 10/21/20 08:45 Enoxaparin Sodium 40 Mg/0.4 Ml Syringe SC 40 mg 0900 PRETTY Administration Guaifenesin/Dextromethorphan 15 ml 10/20/20 09:00 10/22/20 02:39 Guaifenesin Dm 100-10/5 Ml Udcup PO 15 ml 0300,0900,1500,2100 PRETTY Administration Azithromycin 500 mg/ Sodium 250 mls @ 250 mls/hr 10/19/20 05:00 10/22/20 04:47 Chloride IVPB 250 mls 0500 PRETTY Administration Ceftriaxone Sodium 1 gm/ 100 mls @ 200 mls/hr 10/19/20 05:00 10/22/20 03:40 Sodium Chloride IVPB 100 mls 0500 PRETTY Administration Insulin Glargine 10 units/ 0.1 mls @ 0 mls/hr 10/19/20 09:00 10/21/20 08:46 Miscellaneous Medication SC 0.1 mls QAM PRETTY Administration Insulin Human Lispro 0 units 10/19/20 07:47 10/22/20 04:49 Humalog 300 Units/3 Ml Vial SC 4 unit .MODERATE SLIDING SC PRN Administration Moderate Correctional Scale Tamsulosin HCl 0.4 mg 10/17/20 09:00 10/21/20 08:45 Tamsulosin Hcl 0.4 Mg Cap PO 0.4 mg DAILY PRETTY Administration Zinc Sulfate 220 mg 10/17/20 09:00 10/21/20 08:45 Zinc Sulfate 220 Mg Cap PO 220 mg DAILY PRETTY Administration - Exam General Appearance: NAD, awake alert ENT: moist mucosa Heart: RRR, no murmur, no gallops, no rubs Respiratory: CTAB, no wheezes, no rales, no ronchi Gastrointestinal: soft, non-tender, non-distended, normal bowel sounds Extremities: no edema Psychiatric: normal affect, normal behavior, A&O x 3 Hosp A/P - Plan (1) Pneumonia due to COVID-19 virus Code(s): U07.1 - COVID-19; J12.89 - OTHER VIRAL PNEUMONIA Status: Acute (2) Acute respiratory failure with hypoxia Code(s): J96.01 - ACUTE RESPIRATORY FAILURE WITH HYPOXIA Status: Acute (3) Generalized weakness Code(s): R53.1 - WEAKNESS Status: Acute (4) DM (diabetes mellitus), type 2, uncontrolled Code(s): E11.65 - TYPE 2 DIABETES MELLITUS WITH HYPERGLYCEMIA Status: Acute Qualifiers: Glycemic state: with hyperglycemia Qualified Code(s): E11.65 - Type 2 diabetes mellitus with hyperglycemia (5) CAD (coronary artery disease) Code(s): I25.10 - ATHSCL HEART DISEASE OF [place] CORONARY ARTERY W/O ANG PCTRS Status: Chronic Qualifiers: Coronary Disease-Associated Artery/Lesion type: [place] artery [place] vs. transplanted heart: [place] heart Associated angina: without angina Qualified Code(s): I25.10 - Atherosclerotic heart disease of [place] coronary artery without angina pectoris (6) COPD (chronic obstructive pulmonary disease) Status: Chronic Qualifiers: Emphysema type: unspecified (7) HTN (hypertension) Code(s): I10 - ESSENTIAL (PRIMARY) HYPERTENSION Status: Chronic Qualifiers: Hypertension type: essential hypertension Qualified Code(s): I10 - Essential (primary) hypertension (8) HLD (hyperlipidemia) Code(s): E78.5 - HYPERLIPIDEMIA, UNSPECIFIED Status: Chronic - Plan Continue oxygen, dexamethasone, vitamin C and zinc. New diagnosis of diabetes mellitus type 2. Continue albuterol inhaler. Remdesivir completed. Hypertension controlled and stable. Inpatient rehab screen vs. SNF.
[2020-10-22] MEDS: Cholecalciferol 1,000 UNITS (25 MCG) TAB PO SCH (09:17)
[2020-10-22] MEDS: Zinc Sulfate 220 MG CAP PO SCH (09:17)
[2020-10-22] MEDS: Tamsulosin HCl 0.4 MG CAP PO SCH (09:17)
[2020-10-22] MEDS: Ascorbic Acid 500 mg Chewable Tablet PO SCH (09:17)
[2020-10-22] MEDS: Atenolol 50 MG TAB PO SCH (09:17)
[2020-10-22] MEDS: Insulin Glargine 10 UNITS in Pre-Filled Syringe 1 EACH SC SCH (09:18)
[2020-10-22] MEDS: Enoxaparin Sodium 40 MG/0.4 ML SYRINGE SC SCH (09:18)
[2020-10-22] MEDS: Atorvastatin Calcium 10 MG TAB PO SCH (20:47)
[2020-10-23] MEDS: Guaifenesin DM 100-10/5 ML UDCUP PO SCH ×4 (03:32→20:42)
[2020-10-23] MEDS: cefTRIAXone\\ROCEPHIN 1 GM in Sodium Chloride 0.9% 100 ML IVPB SCH (03:33)
[2020-10-23] MEDS: Azithromycin 500 MG in Sodium Chloride 0.9% 250 ML 250 ML IVPB SCH (04:45)
[2020-10-23] MEDS: HumaLOG 300 UNITS/3 ML VIAL SC PRN ×2 (04:45→17:18)
[2020-10-23] MEDS: Albuterol 200 PUFF (6.7GM INHALER) INH SCH ×4 (04:51→20:13)
[2020-10-23 06:29] LABS: #Eosinphils 0.1 thou/uL (0.0-0.7); #Lymphocytes 0.5 thou/uL (1.20-3.40); #Monocytes 0.6 thou/uL (0.11-0.59); #Neutrophils 8.9 thou/uL (1.40-6.50); %Basophils 0.2 % (0.0-1.0); %Eosinophils 0.6 % (0.0-10.0); %Lymphocytes 5.2 % (21.0-51.0); %Monocytes 5.7 % (0.0-10.0); %Neutrophils 88.4 % (42.0-75.0); Hemoglobin 13.5 g/dL (14.0-18.0); Mean Corpuscular HGB CONC 33.1 g/dL (32.0-36.0); Mean Corpuscular Hemoglobin 30.9 pg (27.0-31.0); Mean Corpuscular Volume 93.5 fL (78.0-98.0); Mean Platelet Volume 8.2 fL (7.4-10.4); Platelet Count 243 thou/uL (130-400); RBC Distribution Width 11.9 % (11.5-14.5); Red Blood Cell (RBC) Count 4.38 mill/uL (4.70-6.10); White Blood Cell (WBC) Count 10.1 thou/uL (4.8-10.8)
[2020-10-23 06:55] LABS: Anion Gap 15 mmol/L (10-20); BUN (Urea Nitrogen) 19 mg/dL (8.4-25.7); Calc. Creatinine Clearance 92 mL/min (70-130); Calcium 8.4 mg/dL (7.8-10.44); Carbon Dioxide 23 mmol/L (23-31); Chloride 102 mmol/L (98-107); Glucose 162 mg/dL (83-110); Potassium 3.8 mmol/L (3.5-5.1); Sodium 136 mmol/L (136-145)
[2020-10-23] MEDS: Ascorbic Acid 500 mg Chewable Tablet PO SCH (09:54)
[2020-10-23] MEDS: Cholecalciferol 1,000 UNITS (25 MCG) TAB PO SCH (09:54)
[2020-10-23] MEDS: Enoxaparin Sodium 40 MG/0.4 ML SYRINGE SC SCH (09:54)
[2020-10-23] MEDS: Tamsulosin HCl 0.4 MG CAP PO SCH (09:54)
[2020-10-23] MEDS: Aspirin 325 MG TAB PO SCH (09:54)
[2020-10-23] MEDS: Dexamethasone 4 MG TAB PO SCH (09:55)
[2020-10-23] MEDS: Atenolol 50 MG TAB PO SCH (09:55)
[2020-10-23] MEDS: Insulin Glargine 10 UNITS in Pre-Filled Syringe 1 EACH SC SCH (10:02)
[2020-10-23] MEDS: Zinc Sulfate 220 MG CAP PO SCH (10:54)
--- NOTE | 2020-10-23 19:14 | PDOC.HOSPP ---
- Subjective Encounter Date: 10/23/20 Encounter Time: 12:00 Subjective: Patient seen for follow-up regarding COVID-19 pneumonia. He reports generalized weakness. - Objective Vital Signs & Weight: Vital Signs (12 hours) Temp Pulse Resp BP Pulse Ox Pulse Ox Pulse Ox 10/23/20 16:00 97.6 F 83 20 121/68 93 L 10/23/20 12:19 97.8 F 82 20 134/76 92 L 10/23/20 11:15 92 L 96 10/23/20 09:39 98.3 F 79 20 123/74 91 L 10/23/20 08:00 91 L Weight Weight 174 lb 3.2 oz I&O: 10/22/20 10/23/20 10/24/20 06:59 06:59 06:59 Intake Total 850 950 Output Total 600 800 Balance 250 150 Result Diagrams: 10/23/20 05:54 10/23/20 05:54 Additional Labs: Accuchecks 10/23/20 10/23/20 10/22/20 11:36 04:38 20:33 POC Glucose 180 H 202 H 237 H Labs and MAR reviewed by [facility] Hospitalist ROS - Review of Systems Constitutional: reports: weakness Respiratory: reports: cough, SOB with excertion, sputum. denies: dry, shortness of breath, hemoptysis, pleuritic pain, wheezing Cardiovascular: denies: chest pain, palpitations, orthopnea, paroxysmal noc. dyspnea, edema - Medication Medications: Active Medications Generic Name Dose Route Start Last Admin Trade Name Freq PRN Reason Stop Dose Admin Albuterol Sulfate 2 puff 10/18/20 11:00 10/23/20 15:40 Albuterol 200 Puff (6.7gm Inhaler) INH 2 puff [id number] PRETTY Administration Ascorbic Acid 1,000 mg 10/17/20 09:00 10/23/20 09:54 Ascorbic Acid 500 Mg Chewable Tablet PO 1,000 mg DAILY PRETTY Administration Aspirin 325 mg 10/17/20 09:00 10/23/20 09:54 Aspirin 325 Mg Tab PO 325 mg DAILY PRETTY Administration Atenolol 50 mg 10/17/20 09:00 10/23/20 09:55 Atenolol 50 Mg Tab PO 50 mg DAILY PRETTY Administration Atorvastatin Calcium 10 mg 10/17/20 21:00 10/22/20 20:47 Atorvastatin Calcium 10 Mg Tab PO 10 mg HS PRETTY Administration Cholecalciferol 5,000 units 10/17/20 09:00 10/23/20 09:54 Cholecalciferol 1,000 Units (25 Mcg) Tab PO 5,000 units DAILY PRETTY Administration Dexamethasone 6 mg 10/17/20 08:00 10/23/20 09:55 Dexamethasone 4 Mg Tab PO 6 mg QAM-WM PRETTY Administration Enoxaparin Sodium 40 mg 10/17/20 09:00 10/23/20 09:54 Enoxaparin Sodium 40 Mg/0.4 Ml Syringe SC 40 mg 0900 PRETTY Administration Guaifenesin/Dextromethorphan 15 ml 10/20/20 09:00 10/23/20 15:40 Guaifenesin Dm 100-10/5 Ml Udcup PO 15 ml 0300,0900,1500,2100 PRETTY Administration Azithromycin 500 mg/ Sodium 250 mls @ 250 mls/hr 10/19/20 05:00 10/23/20 04:45 Chloride IVPB 250 mls 0500 PRETTY Administration Ceftriaxone Sodium 1 gm/ 100 mls @ 200 mls/hr 10/19/20 05:00 10/23/20 03:33 Sodium Chloride IVPB 100 mls 0500 PRETTY Administration Insulin Glargine 10 units/ 0.1 mls @ 0 mls/hr 10/19/20 09:00 10/23/20 10:02 Miscellaneous Medication SC 0.1 mls QAM PRETTY Administration Insulin Human Lispro 0 units 10/19/20 07:47 10/23/20 17:18 Humalog 300 Units/3 Ml Vial SC 10 unit .MODERATE SLIDING SC PRN Administration Moderate Correctional Scale Tamsulosin HCl 0.4 mg 10/17/20 09:00 10/23/20 09:54 Tamsulosin Hcl 0.4 Mg Cap PO 0.4 mg DAILY PRETTY Administration Zinc Sulfate 220 mg 10/17/20 09:00 10/23/20 10:54 Zinc Sulfate 220 Mg Cap PO Not Given DAILY PRETTY - Exam General Appearance: awake alert Eye: anicteric sclera ENT: moist mucosa Neck: supple Heart: RRR Respiratory: CTAB Gastrointestinal: soft, non-tender Skin: no rashes Psychiatric: normal affect, normal behavior Hosp A/P - Plan - assessment (1) Pneumonia due to COVID-19 virus Code(s): U07.1 - COVID-19; J12.89 - OTHER VIRAL PNEUMONIA Status: Acute (2) Acute respiratory failure with hypoxia Code(s): J96.01 - ACUTE RESPIRATORY FAILURE WITH HYPOXIA Status: Acute (3) Generalized weakness Code(s): R53.1 - WEAKNESS Status: Acute (4) DM (diabetes mellitus), type 2, uncontrolled Code(s): E11.65 - TYPE 2 DIABETES MELLITUS WITH HYPERGLYCEMIA Status: Acute Qualifiers: Glycemic state: with hyperglycemia Qualified Code(s): E11.65 - Type 2 diabetes mellitus with hyperglycemia (5) CAD (coronary artery disease) Code(s): I25.10 - ATHSCL HEART DISEASE OF [place] CORONARY ARTERY W/O ANG PCTRS Status: Chronic Qualifiers: Coronary Disease-Associated Artery/Lesion type: [place] artery [place] vs. transplanted heart: [place] heart Associated angina: without angina Qualified Code(s): I25.10 - Atherosclerotic heart disease of [place] coronary artery without angina pectoris (6) COPD (chronic obstructive pulmonary disease) Status: Chronic Qualifiers: Emphysema type: unspecified (7) HTN (hypertension) Code(s): I10 - ESSENTIAL (PRIMARY) HYPERTENSION Status: Chronic Qualifiers: Hypertension type: essential hypertension Qualified Code(s): I10 - Essential (primary) hypertension (8) HLD (hyperlipidemia) Code(s): E78.5 - HYPERLIPIDEMIA, UNSPECIFIED Status: Chronic - Plan Patient is on oxygen, dexamethasone, vitamin C and zinc. New diagnosis of diabetes mellitus type 2. Continue albuterol inhaler. Patient finished remdesivir on October 21, 2020. Hypertension controlled and stable. Disposition: To inpatient rehab when accepted and bed available.
[2020-10-23] MEDS: Atorvastatin Calcium 10 MG TAB PO SCH (20:13)
[2020-10-24] MEDS: Benzonatate 100 MG CAP PO PRN ×2 (02:41→20:19)
[2020-10-24] MEDS: Guaifenesin DM 100-10/5 ML UDCUP PO SCH ×4 (02:53→20:19)
[2020-10-24] MEDS: Azithromycin 500 MG in Sodium Chloride 0.9% 250 ML 250 ML IVPB SCH (04:01)
[2020-10-24] MEDS: cefTRIAXone\\ROCEPHIN 1 GM in Sodium Chloride 0.9% 100 ML IVPB SCH (05:15)
[2020-10-24] MEDS: Albuterol 200 PUFF (6.7GM INHALER) INH SCH ×4 (06:07→18:30)
[2020-10-24] MEDS: Insulin Glargine 10 UNITS in Pre-Filled Syringe 1 EACH SC SCH (09:31)
[2020-10-24] MEDS: Cholecalciferol 1,000 UNITS (25 MCG) TAB PO SCH (09:32)
[2020-10-24] MEDS: Dexamethasone 4 MG TAB PO SCH (09:32)
[2020-10-24] MEDS: Enoxaparin Sodium 40 MG/0.4 ML SYRINGE SC SCH (09:33)
[2020-10-24] MEDS: Aspirin 325 MG TAB PO SCH (09:33)
[2020-10-24] MEDS: Tamsulosin HCl 0.4 MG CAP PO SCH (09:33)
[2020-10-24] MEDS: Atenolol 50 MG TAB PO SCH (09:33)
[2020-10-24] MEDS: Ascorbic Acid 500 mg Chewable Tablet PO SCH (09:33)
[2020-10-24] MEDS: Zinc Sulfate 220 MG CAP PO SCH (09:34)
[2020-10-24] MEDS ORDERED: Polyethylene Glycol 3350 17 GM Packet PO SCH (11:30)
[2020-10-24] MEDS: Calcium Carbonate 500 MG ChewTAB PO PRN ×3 (12:30→20:19)
[2020-10-24] MEDS: HumaLOG 300 UNITS/3 ML VIAL SC PRN ×3 (12:31→20:31)
--- NOTE | 2020-10-24 19:47 | PDOC.HOSPP ---
- Subjective Encounter Date: 10/24/20 Encounter Time: 11:30 Subjective: Patient seen for follow-up for COVID-19 pneumonia. He reports generalized weakness. - Objective Vital Signs & Weight: Vital Signs (12 hours) Temp Pulse Resp BP Pulse Ox Pulse Ox Pulse Ox 10/24/20 16:00 93 L 10/24/20 14:39 96 98 10/24/20 12:00 94 L 10/24/20 08:00 98.4 F 96 20 117/73 95 Weight Weight 174 lb 3.2 oz I&O: 10/23/20 10/24/20 10/25/20 06:59 06:59 06:59 Intake Total 950 Output Total 800 Balance 150 Result Diagrams: 10/23/20 05:54 10/23/20 05:54 Additional Labs: Accuchecks 10/24/20 10/24/20 10/23/20 16:00 04:05 19:40 POC Glucose 298 H 174 H 280 H 10/23/20 16:20 POC Glucose 353 H I reviewed patient's labs and MAR Hospitalist ROS - Review of Systems Constitutional: reports: weakness Respiratory: reports: cough, dry, SOB with excertion Genitourinary: denies: dysuria, frequency, incontinence, hematuria, retention - Medication Medications: Active Medications Generic Name Dose Route Start Last Admin Trade Name Freq PRN Reason Stop Dose Admin Albuterol Sulfate 2 puff 10/18/20 11:00 10/24/20 18:30 Albuterol 200 Puff (6.7gm Inhaler) INH 2 puff [id number] PRETTY Administration Ascorbic Acid 1,000 mg 10/17/20 09:00 10/24/20 09:33 Ascorbic Acid 500 Mg Chewable Tablet PO 1,000 mg DAILY PRETTY Administration Aspirin 325 mg 10/17/20 09:00 10/24/20 09:33 Aspirin 325 Mg Tab PO 325 mg DAILY PRETTY Administration Atenolol 50 mg 10/17/20 09:00 10/24/20 09:33 Atenolol 50 Mg Tab PO 50 mg DAILY PRETTY Administration Atorvastatin Calcium 10 mg 10/17/20 21:00 10/23/20 20:13 Atorvastatin Calcium 10 Mg Tab PO 10 mg HS PRETTY Administration Benzonatate 100 mg 10/23/20 21:28 10/24/20 02:41 Benzonatate 100 Mg Cap PO 100 mg Q4H PRN Administration Cough Calcium Carbonate 1,000 mg 10/24/20 11:30 10/24/20 16:30 Calcium Carbonate 500 Mg Chewtab PO 1,000 mg Q4H PRN Administration Indigestion Cholecalciferol 5,000 units 10/17/20 09:00 10/24/20 09:32 Cholecalciferol 1,000 Units (25 Mcg) Tab PO 5,000 units DAILY PRETTY Administration Dexamethasone 6 mg 10/17/20 08:00 10/24/20 09:32 Dexamethasone 4 Mg Tab PO 6 mg QAM-WM PRETTY Administration Enoxaparin Sodium 40 mg 10/17/20 09:00 10/24/20 09:33 Enoxaparin Sodium 40 Mg/0.4 Ml Syringe SC 40 mg 0900 PRETTY Administration Guaifenesin/Dextromethorphan 15 ml 10/20/20 09:00 10/24/20 14:26 Guaifenesin Dm 100-10/5 Ml Udcup PO Not Given 0300,0900,1500,2100 PRETTY Azithromycin 500 mg/ Sodium 250 mls @ 250 mls/hr 10/19/20 05:00 10/24/20 04:01 Chloride IVPB 250 mls 0500 PRETTY Administration Ceftriaxone Sodium 1 gm/ 100 mls @ 200 mls/hr 10/19/20 05:00 10/24/20 05:15 Sodium Chloride IVPB 100 mls 0500 PRETTY Administration Insulin Glargine 10 units/ 0.1 mls @ 0 mls/hr 10/19/20 09:00 10/24/20 09:31 Miscellaneous Medication SC 0.1 mls QAM PRETTY Administration Insulin Human Lispro 0 units 10/19/20 07:47 10/24/20 16:28 Humalog 300 Units/3 Ml Vial SC 6 unit .MODERATE SLIDING SC PRN Administration Moderate Correctional Scale Tamsulosin HCl 0.4 mg 10/17/20 09:00 10/24/20 09:33 Tamsulosin Hcl 0.4 Mg Cap PO 0.4 mg DAILY PRETTY Administration Zinc Sulfate 220 mg 10/17/20 09:00 10/24/20 09:34 Zinc Sulfate 220 Mg Cap PO Not Given DAILY PRETTY - Exam General Appearance: awake alert Eye: anicteric sclera ENT: normocephalic atraumatic Neck: supple Heart: no gallops, no rubs Respiratory: CTAB Gastrointestinal: non-tender, non-distended Skin: no rashes Psychiatric: normal affect, normal behavior Hosp A/P - Plan - assessment (1) Pneumonia due to COVID-19 virus Code(s): U07.1 - COVID-19; J12.89 - OTHER VIRAL PNEUMONIA Status: Acute (2) Acute respiratory failure with hypoxia Code(s): J96.01 - ACUTE RESPIRATORY FAILURE WITH HYPOXIA Status: Acute (3) Generalized weakness Code(s): R53.1 - WEAKNESS Status: Acute (4) DM (diabetes mellitus), type 2, uncontrolled Code(s): E11.65 - TYPE 2 DIABETES MELLITUS WITH HYPERGLYCEMIA Status: Acute Qualifiers: Glycemic state: with hyperglycemia Qualified Code(s): E11.65 - Type 2 diabetes mellitus with hyperglycemia (5) CAD (coronary artery disease) Code(s): I25.10 - ATHSCL HEART DISEASE OF [place] CORONARY ARTERY W/O ANG PCTRS Status: Chronic Qualifiers: Coronary Disease-Associated Artery/Lesion type: [place] artery [place] vs. transplanted heart: [place] heart Associated angina: without angina Qualified Code(s): I25.10 - Atherosclerotic heart disease of [place] coronary artery without angina pectoris (6) COPD (chronic obstructive pulmonary disease) Status: Chronic Qualifiers: Emphysema type: unspecified (7) HTN (hypertension) Code(s): I10 - ESSENTIAL (PRIMARY) HYPERTENSION Status: Chronic Qualifiers: Hypertension type: essential hypertension Qualified Code(s): I10 - Essential (primary) hypertension (8) HLD (hyperlipidemia) Code(s): E78.5 - HYPERLIPIDEMIA, UNSPECIFIED Status: Chronic - Plan Continue oxygen, dexamethasone, vitamin C and zinc. New diagnosis of diabetes mellitus type 2. Continue Lantus insulin for now, start Metformin and glipizide. Continue albuterol inhaler. Patient finished remdesivir on October 21, 2020. Hypertension controlled and stable. Disposition: Likely to inpatient rehab in 24 to 48 hours.
[2020-10-24] MEDS: Atorvastatin Calcium 10 MG TAB PO SCH (20:19)
[2020-10-24] MEDS ORDERED: Famotidine 20 MG TAB PO SCH (23:15)
[2020-10-25] MEDS: Calcium Carbonate 500 MG ChewTAB PO PRN ×2 (01:49→09:13)
[2020-10-25] MEDS: Guaifenesin DM 100-10/5 ML UDCUP PO SCH ×4 (03:08→20:10)
[2020-10-25] MEDS: Azithromycin 500 MG in Sodium Chloride 0.9% 250 ML 250 ML IVPB SCH (03:09)
[2020-10-25] MEDS: HumaLOG 300 UNITS/3 ML VIAL SC PRN ×4 (04:50→20:39)
[2020-10-25] MEDS: cefTRIAXone\\ROCEPHIN 1 GM in Sodium Chloride 0.9% 100 ML IVPB SCH (04:50)
[2020-10-25] MEDS: Albuterol 200 PUFF (6.7GM INHALER) INH SCH ×4 (04:53→17:59)
[2020-10-25] MEDS: Tamsulosin HCl 0.4 MG CAP PO SCH (09:12)
[2020-10-25] MEDS: Ascorbic Acid 500 mg Chewable Tablet PO SCH (09:12)
[2020-10-25] MEDS: Cholecalciferol 1,000 UNITS (25 MCG) TAB PO SCH (09:12)
[2020-10-25] MEDS: metFORMIN 500 MG TAB PO SCH ×2 (09:13→15:15)
[2020-10-25] MEDS: Zinc Sulfate 220 MG CAP PO SCH (09:13)
[2020-10-25] MEDS: Aspirin 325 MG TAB PO SCH (09:13)
[2020-10-25] MEDS: Polyethylene Glycol 3350 17 GM Packet PO SCH (09:13)
[2020-10-25] MEDS: Dexamethasone 4 MG TAB PO SCH (09:13)
[2020-10-25] MEDS: Insulin Glargine 10 UNITS in Pre-Filled Syringe 1 EACH SC SCH (09:13)
[2020-10-25] MEDS: Enoxaparin Sodium 40 MG/0.4 ML SYRINGE SC SCH (09:13)
[2020-10-25] MEDS: Atenolol 50 MG TAB PO SCH (09:19)
--- NOTE | 2020-10-25 15:56 | PDOC.HOSPP ---
- Subjective Encounter Date: 10/25/20 Encounter Time: 08:30 Subjective: Patient seen for follow-up regarding COVID-19 infection. He reports generalized weakness but denies fevers or chills. - Objective Vital Signs & Weight: Vital Signs (12 hours) Temp Pulse Resp BP BP BP Pulse Ox 10/25/20 12:30 120/70 10/25/20 09:19 96 10/25/20 08:00 98.2 F 96 20 111/76 96 10/25/20 04:00 98.3 F 100 20 116/72 95 Pulse Ox Pulse Ox 10/25/20 12:30 99 74 L 10/25/20 09:19 10/25/20 08:00 10/25/20 04:00 Weight Admit Weight 174 lb 3.2 oz Weight 174 lb 3.2 oz I&O: 10/24/20 10/25/20 10/26/20 06:59 06:59 06:59 Output Total 200 Balance -200 Result Diagrams: 10/23/20 05:54 10/23/20 05:54 Additional Labs: Accuchecks 10/25/20 10/25/20 10/24/20 11:00 04:20 20:19 POC Glucose 194 H 191 H 324 H 10/24/20 16:00 POC Glucose 298 H Labs and MAR reviewed by [place] Hospitalist ROS - Review of Systems Constitutional: reports: weakness Respiratory: reports: cough, dry. denies: shortness of breath, hemoptysis, SOB with excertion, pleuritic pain, sputum, wheezing Cardiovascular: denies: chest pain, palpitations, orthopnea, paroxysmal noc. dyspnea, edema, light headedness - Medication Medications: Active Medications Generic Name Dose Route Start Last Admin Trade Name Freq PRN Reason Stop Dose Admin Albuterol Sulfate 2 puff 10/18/20 11:00 10/25/20 15:14 Albuterol 200 Puff (6.7gm Inhaler) INH 2 puff [id number] PRETTY Administration Ascorbic Acid 1,000 mg 10/17/20 09:00 10/25/20 09:12 Ascorbic Acid 500 Mg Chewable Tablet PO 1,000 mg DAILY PRETTY Administration Aspirin 325 mg 10/17/20 09:00 10/25/20 09:13 Aspirin 325 Mg Tab PO 325 mg DAILY PRETTY Administration Atenolol 50 mg 10/17/20 09:00 10/25/20 09:19 Atenolol 50 Mg Tab PO Not Given DAILY PRETTY Atorvastatin Calcium 10 mg 10/17/20 21:00 10/24/20 20:19 Atorvastatin Calcium 10 Mg Tab PO 10 mg HS PRETTY Administration Benzonatate 100 mg 10/23/20 21:28 10/24/20 20:19 Benzonatate 100 Mg Cap PO 100 mg Q4H PRN Administration Cough Calcium Carbonate 1,000 mg 10/24/20 11:30 10/25/20 09:13 Calcium Carbonate 500 Mg Chewtab PO 1,000 mg Q4H PRN Administration Indigestion Cholecalciferol 5,000 units 10/17/20 09:00 10/25/20 09:12 Cholecalciferol 1,000 Units (25 Mcg) Tab PO 5,000 units DAILY PRETTY Administration Dexamethasone 6 mg 10/17/20 08:00 10/25/20 09:13 Dexamethasone 4 Mg Tab PO 6 mg QAM-WM PRETTY Administration Enoxaparin Sodium 40 mg 10/17/20 09:00 10/25/20 09:13 Enoxaparin Sodium 40 Mg/0.4 Ml Syringe SC 40 mg 0900 PRETTY Administration Glipizide 2.5 mg 10/25/20 07:30 10/25/20 09:12 Glipizide Xl 2.5 Mg Tablet PO 2.5 mg DAILY-AC PRETTY Administration Guaifenesin/Dextromethorphan 15 ml 10/20/20 09:00 10/25/20 15:14 Guaifenesin Dm 100-10/5 Ml Udcup PO 15 ml 0300,0900,1500,2100 PRETTY Administration Azithromycin 500 mg/ Sodium 250 mls @ 250 mls/hr 10/19/20 05:00 10/25/20 03:09 Chloride IVPB 250 mls 0500 PRETTY Administration Ceftriaxone Sodium 1 gm/ 100 mls @ 200 mls/hr 10/19/20 05:00 10/25/20 04:50 Sodium Chloride IVPB 100 mls 0500 PRETTY Administration Insulin Glargine 10 units/ 0.1 mls @ 0 mls/hr 10/19/20 09:00 10/25/20 09:13 Miscellaneous Medication SC 0.1 mls QAM PRETTY Administration Insulin Human Lispro 0 units 10/19/20 07:47 10/25/20 12:02 Humalog 300 Units/3 Ml Vial SC 2 unit .MODERATE SLIDING SC PRN Administration Moderate Correctional Scale Metformin HCl 500 mg 10/25/20 08:00 10/25/20 15:15 Metformin 500 Mg Tab PO 500 mg BID-WM PRETTY Administration Polyethylene Glycol 17 gm 10/25/20 09:00 10/25/20 09:13 Polyethylene Glycol 3350 17 Gm Packet PO 17 gm DAILY PRETTY Administration Tamsulosin HCl 0.4 mg 10/17/20 09:00 10/25/20 09:12 Tamsulosin Hcl 0.4 Mg Cap PO 0.4 mg DAILY PRETTY Administration Zinc Sulfate 220 mg 10/17/20 09:00 10/25/20 09:13 Zinc Sulfate 220 Mg Cap PO 220 mg DAILY PRETTY Administration - Exam General Appearance: awake alert Eye: anicteric sclera ENT: moist mucosa Neck: supple Heart: RRR Respiratory: CTAB Gastrointestinal: soft Skin: no rashes Psychiatric: normal affect, normal behavior Hosp A/P - Plan - assessment (1) Pneumonia due to COVID-19 virus Code(s): U07.1 - COVID-19; J12.89 - OTHER VIRAL PNEUMONIA Status: Acute (2) Acute respiratory failure with hypoxia Code(s): J96.01 - ACUTE RESPIRATORY FAILURE WITH HYPOXIA Status: Acute (3) Generalized weakness Code(s): R53.1 - WEAKNESS Status: Acute (4) DM (diabetes mellitus), type 2, uncontrolled Code(s): E11.65 - TYPE 2 DIABETES MELLITUS WITH HYPERGLYCEMIA Status: Acute Qualifiers: Glycemic state: with hyperglycemia Qualified Code(s): E11.65 - Type 2 diabetes mellitus with hyperglycemia (5) CAD (coronary artery disease) Code(s): I25.10 - ATHSCL HEART DISEASE OF [place] CORONARY ARTERY W/O ANG PCTRS Status: Chronic Qualifiers: Coronary Disease-Associated Artery/Lesion type: [place] artery [place] vs. transplanted heart: [place] heart Associated angina: without angina Qualified Code(s): I25.10 - Atherosclerotic heart disease of [place] coronary artery without angina pectoris (6) COPD (chronic obstructive pulmonary disease) Status: Chronic Qualifiers: Emphysema type: unspecified (7) HTN (hypertension) Code(s): I10 - ESSENTIAL (PRIMARY) HYPERTENSION Status: Chronic Qualifiers: Hypertension type: essential hypertension Qualified Code(s): I10 - Essential (primary) hypertension (8) HLD (hyperlipidemia) Code(s): E78.5 - HYPERLIPIDEMIA, UNSPECIFIED Status: Chronic - Plan Patient completed remdesivir, last dose was October 21, 2020. Continue oxygen, dexamethasone, vitamin C and zinc. New diagnosis of diabetes mellitus type 2. Continue Lantus, Metformin and glipizide. Continue albuterol inhaler. Hypertension stable. Disposition: Patient has been approved for inpatient rehab, awaiting bed availability.
[2020-10-25] MEDS: Atorvastatin Calcium 10 MG TAB PO SCH (20:09)
[2020-10-26] MEDS ORDERED: Famotidine 20 MG TAB PO SCH ×2 (02:45→09:00)
[2020-10-26] MEDS: Guaifenesin DM 100-10/5 ML UDCUP PO SCH ×3 (02:48→14:34)
[2020-10-26] MEDS: cefTRIAXone\\ROCEPHIN 1 GM in Sodium Chloride 0.9% 100 ML IVPB SCH (04:18)
[2020-10-26] MEDS: Azithromycin 500 MG in Sodium Chloride 0.9% 250 ML 250 ML IVPB SCH (05:37)
[2020-10-26] MEDS: Albuterol 200 PUFF (6.7GM INHALER) INH SCH ×3 (06:12→14:34)
[2020-10-26 08:00] VITALS: BP 110/73; TEMP 98.2
[2020-10-26] MEDS: Atenolol 50 MG TAB PO SCH (08:55)
[2020-10-26] MEDS: Dexamethasone 4 MG TAB PO SCH (08:55)
[2020-10-26] MEDS: Aspirin 325 MG TAB PO SCH (08:55)
[2020-10-26] MEDS: Tamsulosin HCl 0.4 MG CAP PO SCH (08:55)
[2020-10-26] MEDS: metFORMIN 500 MG TAB PO SCH (08:55)
[2020-10-26] MEDS: Zinc Sulfate 220 MG CAP PO SCH (08:56)
[2020-10-26] MEDS: Cholecalciferol 1,000 UNITS (25 MCG) TAB PO SCH (08:56)
[2020-10-26] MEDS: Polyethylene Glycol 3350 17 GM Packet PO SCH (08:56)
[2020-10-26] MEDS: Ascorbic Acid 500 mg Chewable Tablet PO SCH (08:56)
[2020-10-26] MEDS: Enoxaparin Sodium 40 MG/0.4 ML SYRINGE SC SCH (08:56)
[2020-10-26] MEDS: Insulin Glargine 10 UNITS in Pre-Filled Syringe 1 EACH SC SCH (08:56)
--- NOTE | 2020-10-26 12:25 | PDOC.DS.DS ---
Provider - Provider Date of Admission: 10/16/20 22:57 Date of Discharge: 10/26/20 Admitting Provider: Gilles Tovar Primary Care Physician: Tomás Powell MD Course - Hospital Course Hospital Course: Discharge diagnoses: 1. Pneumonia due to COVID-19 virus 2. Acute hypoxic respiratory failure 3. Newly diagnosed diabetes mellitus 4. Hyponatremia 5. Physical deconditioning Hospital course: Patient is a pleasant 75-year-old gentleman who was admitted to the hospital on October 17, 2020 for acute hypoxic respiratory failure secondary to COVID-19 pneumonia. He was treated with dexamethasone, vitamin C and zinc. He also received antibiotics. He was also treated with remdesivir, which he completed on October 21, 2020. Was also found to have diabetes mellitus, with a hemoglobin A1c of 8.6. While in the hospital he received Lantus insulin. He is being started on Metformin and glipizide as outpatient. He was also physically deconditioned. He was seen by therapy services and recommended inpatient rehab. He is being discharged to inpatient rehab. Many thanks for allowing me to participate in your patient's care. Please feel free to contact me with any questions or concerns. Discharge destination: [facility] inpatient rehab Total amount of time spent coordinating this discharge: 32 minutes Resuscitation Status: 10/17/20 01:16 Resuscitation Status Routine Co-Sign Provider: Resuscitation Status: FULL: Full Resuscitation - Labs Lab Results: 10/23/20 05:54 10/23/20 05:54 Microbiology - Entire Visit 10/16/20 21:00 Venous blood - Right Hand Blood Culture - Final NO GROWTH IN 5 DAYS 10/16/20 21:14 Venous blood - Left Arm Blood Culture - Final Coagulase Neg Staphylococcus - Physical Exam Vitals: Vital Signs (12 hours) Temp Pulse Resp BP BP Pulse Ox 10/26/20 08:55 96 10/26/20 08:00 93 L 10/26/20 07:59 98.2 F 96 20 110/73 93 L 10/26/20 05:33 98.4 F 94 20 114/77 95 Weight Admit Weight 174 lb 3.2 oz Weight 174 lb 3.2 oz Physical Exam: The patient was seen and examined on the day of discharge. Patient denies chest pain or shortness of breath. Vital signs are stable. S1 and S2 are heard. Lungs are clear to auscultation bilaterally. Plan - Discharge Medications Prescriptions: Cefdinir 300 mg PO Q12HR #8 capsule Home Medications: Medication Instructions Recorded Confirmed Type Atenolol [Tenormin] 50 mg PO DAILY 10/16/20 10/16/20 History Simvastatin [Zocor] 20 mg PO HS 10/16/20 10/16/20 History Tamsulosin HCl [Flomax] 0.4 mg PO DAILY 10/17/20 10/17/20 History Aspirin 325 mg PO DAILY #7 tab 10/26/20 Rx Cefdinir 300 mg PO Q12HR #8 capsule 10/26/20 Rx glipiZIDE [Glucotrol XL] 2.5 mg PO DAILY-AC tab 10/26/20 Rx metFORMIN [Glucophage] 500 mg PO BID-WM tab 10/26/20 Rx Allergies: No Known Allergies Allergy (Unverified 10/16/20 23:43) - Discharge Instructions Discharge Instructions:: Check your blood sugars three times a day and show the readings to your primary care provider. Follow up with primary care provider for management of diabetes mellitus. Activity:: Activity as Tolerated Nourishment:: Diabetic Diet, Heart Healthy Diet - Follow up Plan Referrals: Tomás Powell MD [Primary Care Provider] - 7 Days Disposition: HOME Quality - Care Measures CORE MEASURES:: N/A
[2020-10-26] MEDS: HumaLOG 300 UNITS/3 ML VIAL SC PRN (12:58)
--- NOTE | 2020-10-28 21:32 | PQF ---
CLINICAL DOCUMENTATION CLARIFICATION FORM: Dear : Praneeth Thomas Date / Time: 10/29/20 Please exercise your independent, professional judgment in responding to the clarification form. Clinical indicators are provided on the bottom of this form for your review Please check appropriate box(es): [ ] Sepsis due to Covid Pneumonia [ x ] Severe sepsis due to Covid Pneumonia with Acute Respiratory Failure [ ] Localized infection without sepsis [ ] Other diagnosis [ ] Unable to determine Physician Signature: Date/Time: For continuity of documentation, please document condition throughout progress notes and discharge summary. Thank You. To be completed by CDI/Coding staff for physician review: Present Clinical Indicators - Signs / Symptoms / Labs Results and Location in Medical Record [x] Lactic Acid 1.1, EBC 6.1, Plt count 136, Net[place]ph[place] 88.5 Laboratory 10/16 [x] SARS Cov Rap RNA: Detected Serology 10/16 [x] Blood Culture: Coagulase Neg Staphylococcus Microbiology 10/16 [x] Chest X-ray: Emphysematous changes Imaging Dr Gar 10/16 [x] BP 126/86, Pulse 126, Resp 24, Temp 101.1 Vital signs 10/16 [x] SIRS scoring: Yes, pt did meet criteria ED notes p1 10/16 [x] Suspected COVID, viral sepsis ED notes p10 10/16 [x] Pt reports his symptoms began 3 days ago with fever and cough H&P p1 10/16 Dr Fernandes [x] Covid 19 Pneumonia H&P p4 10/16 Dr Fernandes [x] Acute hypoxic respiratory failure H&P p4 10/16 Dr Fernandes Present Risk Factors Results and Location in Medical Record [x] 75 year-old Male H&P p1 10/16 Dr Fernandes [x] COPD H&P p1 10/16 Dr Fernandes [x] Former smoker H&P p1 10/16 Dr Fernandes [x] HTN H&P p1 10/16 Dr Fernandes [x] Covid 19 Pneumonia H&P p4 10/16 Dr Fernandes Present Treatments Results and Location in Medical Record [x] IVF NS 1L DEC 28 [x] IV Remdesivir 200 mg DEC 28 [x] IV Ceftrizxone 1 gm DEC 28 [x] IV Azithromycin 500 mg DEC 28 [x] Sepsis criteria ED notes p1 10/16 [x] Closely monitor respiratory status H&P p4 10/16 Dr Fernandes CDS/[employer] Signature: Kathya Alma Coreas Phone #: [phone] Date/Time: 10/29/20 This is a permanent part of the Medical Record [facility]
== END 2020-10-26 16:24 | DRG 871 ==
LOC: ERS 20:13 → 2SW 22:57 → T4-A 10-19 16:05
PROVIDERS: ADMIT Internal Medicine; ATTEND Internal Medicine
PROC: XW033E5 Introduction of Remdesivir Anti-infective into Peripheral Vein, Percutaneous Approach, New Technology Group 5 (ICD-10-PCS; principal; 2020-10-17)
PROC: 8E0ZXY6 Isolation (ICD-10-PCS; 2020-10-17)
DX: A41.89 Other specified sepsis (principal); U07.1 COVID-19; J12.82 Pneumonia due to coronavirus disease 2019; J96.01 Acute respiratory failure with hypoxia; E87.1 Hypo-osmolality and hyponatremia; J44.0 Chronic obstructive pulmonary disease with (acute) lower respiratory infection; J44.1 Chronic obstructive pulmonary disease with (acute) exacerbation; R65.20 Severe sepsis without septic shock; K21.9 Gastro-esophageal reflux disease without esophagitis; E78.5 Hyperlipidemia, unspecified; I10 Essential (primary) hypertension; E11.65 Type 2 diabetes mellitus with hyperglycemia; Z79.899 Other long term (current) drug therapy; Z87.891 Personal history of nicotine dependence; Z79.01 Long term (current) use of anticoagulants; Z95.2 Presence of prosthetic heart valve; Z95.1 Presence of aortocoronary bypass graft
CPT/HCPCS: 0240U; 36415; 36416; 70450; 71045; 71275; 80048; 80053; 81001; 82728; 83036; 83605; 83615; 83880; 84484; 85025; 85379; 85652; 86140; 87040; 87149; 93005; 96365; 96366; 96374; J0456; J0696; J1650; J1815; J1956; J2930; J3490; J7050; J8540; Q9967

== ENCOUNTER 2020-11-04 04:43 | Inpatient (IN) | payer MEDICARE ==
[2020-11-04 05:22] LABS: #Basophils 0.1 thou/uL (0.0-0.2); #Lymphocytes 0.6 thou/uL (1.20-3.40); #Monocytes 0.6 thou/uL (0.11-0.59); #Neutrophils 7.3 thou/uL (1.40-6.50); %Basophils 1.1 % (0.0-1.0); %Eosinophils 0.4 % (0.0-10.0); %Lymphocytes 7.4 % (21.0-51.0); %Monocytes 6.8 % (0.0-10.0); %Neutrophils 84.3 % (42.0-75.0); Hemoglobin 14.5 g/dL (14.0-18.0); Mean Corpuscular HGB CONC 32.4 g/dL (32.0-36.0); Mean Corpuscular Hemoglobin 30.1 pg (27.0-31.0); Mean Corpuscular Volume 92.8 fL (78.0-98.0); Mean Platelet Volume 7.4 fL (7.4-10.4); Platelet Count 297 thou/uL (130-400); RBC Distribution Width 12.2 % (11.5-14.5); Red Blood Cell (RBC) Count 4.81 mill/uL (4.70-6.10); White Blood Cell (WBC) Count 8.7 thou/uL (4.8-10.8)
[2020-11-04 05:53] LABS: ALT (SGPT) 149 U/L (8-55); AST (SGOT) 42 U/L (5-34); Albumin 3.8 g/dL (3.4-4.8); Alkaline Phosphatase 147 U/L (40-110); Anion Gap 16 mmol/L (10-20); BUN (Urea Nitrogen) 24 mg/dL (8.4-25.7); Bilirubin, Total 0.7 mg/dL (0.2-1.2); Calc. Creatinine Clearance 0 mL/min (70-130); Calcium 9.3 mg/dL (7.8-10.44); Carbon Dioxide 27 mmol/L (23-31); Chloride 98 mmol/L (98-107); Globulin 2.5 g/dL (2.4-3.5); Glucose 126 mg/dL (83-110); Potassium 5.2 mmol/L (3.5-5.1); Protein, Total 6.3 g/dL (5.8-8.1); Sodium 136 mmol/L (136-145)
[2020-11-04] MEDS ORDERED: Cefepime 2 GM VIAL ONE (06:52)
[2020-11-04 07:05] LABS: Actual Bicarbonate (HCO3a) 22.8 mEq/L (22-28); Base Excess (BEa) 0.7 mEq/L (-2.0 to +3.0); Carboxyhemoglobin (COHb) 0.2 gm% (0.0-3.0); Hemoglobin (Hb) 14.4 g/dL (14.0-18.0); O2 Tension (PaO2), arterial 67.2 mmHg (> 70.0); Potassium - ABG Lab 4.24 mmol/L (3.70-5.30)
[2020-11-04 07:09] LABS: Analyzer IN Cardio ER; Puncture Site LRA
--- NOTE | 2020-11-04 08:03 | CT ---
PRELIMINARY REPORT/[facility]/AFTER HOURS PROCEDURE CTA CHEST WITH ITV CONTRAST: CLINICAL HISTORY: History obtained from assisted. Additional history obtained from EMS. Patient transferred to our facility from inpatient rehab due to worsening hypoxia. TECHNIQUE: Axial CTA images of the chest with intravenous contrast. Three-dimensional MIP/volume rendered reform ations were performed. CONTRAST: With Isovue-370 80 mL. COMPARISON: None provided. FINDINGS: PULMONARY ARTERIES: There is no intraluminal filling defect suspicious for PE. AORTA: No thoracic aortic aneurysm or dissection. LUNGS: Emphysematous changes. Scattered hazy groundglass opacities in the lungs. No nodules are vance ntified. PLEURAL SPACES: No pleural effusion. No pneumothorax. HEART AND MEDIASTINUM: No cardiomegaly. No significant pericardial effusion. LYMPH NODES: No lymphadenopathy. BONES: No focal osseous abnormality or acute fracture. Fractures of indeterminate age involving T6, T10 and partially visualized T12 vertebra. Osteopenia seen. CHEST WALL AND UPPER ABDOMEN: Images through the upper abdomen are unremarkable. The chest wall is un remarkable. IMPRESSION: Scattered hazy groundglass opacities with background changes of emphysema. Findings are suggestive o f pneumonia. Clinical correlation recommended. No evidence of PE. Fractures of indeterminate age involving T6, T10 and partially visualized T12 vertebra. Correlation with MRI can be obtained on a nonemergent basis. ELECTRONICALLY SIGNED BY: Kleber Henry MD Nov 04, 2020 6:29:39 AM UN[place]ATER This report is intended for review by the ordering physician only, in accordance of law. If you recei ve this report in error, please call [facility] at [phone]. CTA ANGIO CHEST WITH AND WITHOUT CONTRAST: HISTORY: Hypoxia. COMPARISON: Radiograph same day. FINDINGS: CT angiogram chest performed after the intravenous ministration of contrast. 3D rendering provided. IMPRESSION: Findings and impression are concordant with the initial report. The mentioned fractures are unchanged from the September 2020 exam. No pulmonary embolism. Progressive Covid-19 pneumonia. CODE QA Transcribed Date/Time: 11/04/2020 8:22 AM
--- NOTE | 2020-11-04 08:04 | PDOC.HHP ---
Hospitalist HPI - History of Present Illness Shortness of breath History of Present Illness: Mr. Oconnell is a pleasant 75-year-old gentleman that has a history of hypertension and hyperlipidemia. He also has a history of an aortic valve replacement as well as having a coronary artery bypass grafting. He was recently admitted to our facility for Covid pneumonia. He was diagnosed with Covid 19 pneumonia on October 17 he was admitted and placed on a course of Decadron as well as remdesivir. He improved and was able to be discharged to the inpatient rehabilitation facility. He says he was doing okay in the rehabilitation facility until about 3 days ago when he began noticing difficulty breathing. Initially it was just on exertion but then got progressively worse. He also says he was having "a nonproductive cough". He denies any fevers or chills no nausea no vomiting no diarrhea. He was evaluated in the rehab center and found to be hypoxic. They tried titrating his supplemental oxygen up to 6L but he was still hypoxic with this and for this reason he was transitioned back to the emergency room. In the emergency room he was evaluated and found to have a infiltrate primarily in the left lower lobe. A CT angiogram of the chest was done and it was negative for pulmonary embolism. He is being admitted for hospital-acquired or healthcare associated pneumonia. ALLERGIES: NKDA MEDICATIONS:Atorvastatin 20 mg p.o. daily ascorbic acid 1000 mg p.o. daily budesonide inhalation clonidine 0.1 mg every 6 as needed dexamethasone 6 mg p.o. daily Brio Ellipta inhaled daily glipizide 2.5 mg p.o. daily Lantus insulin 10 units subcu daily Metformin 500 mg p.o. twice daily metoprolol succinate 25 mg p.o. daily omeprazole 20 mg p.o. daily simvastatin 40 mg p.o. daily Flomax 0.4 mg p.o. daily trazodone 50 g p.o. daily and zinc sulfate 220 mg p.o. daily Hospitalist ROS - Review of Systems All other systems reviewed; all pertinent +/- noted in HPI/Subj Hospitalist History - Past Medical History Source: patient, old records Cardiac: reports: CAD, HTN Pulmonary: reports: COPD Gastrointestinal: reports: GERD Endocrine: reports: Diabetes - Past Surgical History Past Surgical History: reports: CABG - Family History Family History: reports: no pertinent history - Social History Smoking Status: Never smoker Alcohol: reports: None Drugs: reports: none Living Situation: With Family - Exam General Appearance: NAD, awake alert Eye: PERRL, anicteric sclera ENT: normocephalic atraumatic, no oropharyngeal lesions, moist mucosa Neck: supple, no JVD, no carotid bruit Heart: RRR, no murmur, no gallops, no rubs, normal peripheral pulses Respiratory: rales (at both bases and rhonchi) Gastrointestinal: soft, non-tender, non-distended, normal bowel sounds, no palpable masses, no hepatomegaly, no splenomegaly, no bruit Extremities: no cyanosis (d.p. pulses are palpable bilaterally, no lesions), no clubbing, no edema Skin: normal turgor, no lesions Neurological: cranial nerve grossly intact, normal sensation to touch Musculoskeletal: normal tone, normal strength, no muscle wasting Psychiatric: normal affect, A&O x 3 Hospitalist Results - Labs Result Diagrams: 11/04/20 05:15 11/04/20 05:15 Lab results: WBC 8.7 thou/uL (4.8-10.8) 11/04/20 05:15 Hgb 14.5 g/dL (14.0-18.0) 11/04/20 05:15 Hct 44.7 % (42.0-52.0) 11/04/20 05:15 MCV 92.8 fL (78.0-98.0) 11/04/20 05:15 Plt Count 297 thou/uL (130-400) 11/04/20 05:15 Neutrophils % 84.3 % (42.0-75.0) H 11/04/20 05:15 ABG pH 7.50 (7.35-7.45) H 11/04/20 07:05 ABG pCO2 30.0 mmHg (35.0-45.0) L 11/04/20 07:05 ABG pO2 67.2 mmHg (> 70.0) 11/04/20 07:05 Sodium 136 mmol/L (136-145) 11/04/20 05:15 Potassium 5.2 mmol/L (3.5-5.1) H 11/04/20 05:15 Chloride 98 mmol/L (98-107) 11/04/20 05:15 Carbon Dioxide 27 mmol/L (23-31) 11/04/20 05:15 BUN 24 mg/dL (8.4-25.7) 11/04/20 05:15 Creatinine 0.97 mg/dL (0.7-1.3) 11/04/20 05:15 Glucose 126 mg/dL (83-110) H 11/04/20 05:15 Lactic Acid 1.8 mmol/L (0.5-2.2) 11/04/20 05:31 Calcium 9.3 mg/dL (7.8-10.44) 11/04/20 05:15 Total Bilirubin 0.7 mg/dL (0.2-1.2) 11/04/20 05:15 AST 42 U/L (5-34) H 11/04/20 05:15 ALT 149 U/L (8-55) H 11/04/20 05:15 Alkaline Phosphatase 147 U/L (40-110) H 11/04/20 05:15 Troponin I Less than 0.010 ng/mL (< 0.028) 11/04/20 05:15 B-Natriuretic Peptide 27.5 pg/mL (0-100) 11/04/20 05:15 Serum Total Protein 6.3 g/dL (5.8-8.1) 11/04/20 05:15 Albumin 3.8 g/dL (3.4-4.8) 11/04/20 05:15 - Radiology Interpretation Chest x-ray Status: image reviewed by me Additional Comment: Heart size is normal, and bilateral infiltrates, worse at the left base Hospitalist H&P A/P - Problem (1) Acute respiratory failure with hypoxia Code(s): J96.01 - ACUTE RESPIRATORY FAILURE WITH HYPOXIA Status: Acute (2) DM (diabetes mellitus), type 2, uncontrolled Code(s): E11.65 - TYPE 2 DIABETES MELLITUS WITH HYPERGLYCEMIA Status: Chronic Qualifiers: Glycemic state: with hyperglycemia Qualified Code(s): E11.65 - Type 2 diabetes mellitus with hyperglycemia (3) Pneumonia due to COVID-19 virus Code(s): U07.1 - COVID-19; J12.89 - OTHER VIRAL PNEUMONIA Status: Chronic (4) CAD (coronary artery disease) Code(s): I25.10 - ATHSCL HEART DISEASE OF [place] CORONARY ARTERY W/O ANG PCTRS Status: Chronic Qualifiers: Coronary Disease-Associated Artery/Lesion type: [place] artery [place] vs. transplanted heart: [place] heart Associated angina: without angina Qualified Code(s): I25.10 - Atherosclerotic heart disease of [place] coronary artery without angina pectoris (5) COPD (chronic obstructive pulmonary disease) Status: Chronic Qualifiers: Emphysema type: unspecified (6) HLD (hyperlipidemia) Code(s): E78.5 - HYPERLIPIDEMIA, UNSPECIFIED Status: Chronic (7) HTN (hypertension) Code(s): I10 - ESSENTIAL (PRIMARY) HYPERTENSION Status: Chronic Qualifiers: Hypertension type: essential hypertension Qualified Code(s): I10 - Essential (primary) hypertension - Plan Plan: * Acute respiratory failure with hypoxemiathis is likely the result of a ho spital associated pneumonia as the patient was recently hospitalized. He could have residual COVID-19 pneumonia but this is unlikely. [facility] will be [facility]. He will be started on broad-spectrum IV antibiotics to cover healthcare associated pathogens. Continue high flow oxygen. And will consult pulmonary and cleared critical care to help in his management as well. We will also follow-up on cultures. * COPDwe will continue his inhalers as well as duo nebs. * Hypertensionwe will need to reconcile and restart his home medications. We will also place him on as needed medications as needed. * Diabetes mellitus type 2this was recently diagnosed. We will continue glipizide as well as a sliding scale insulin. * The patient will also be placed on DVT and GI prophylaxis.
[2020-11-04] MEDS ORDERED: Vancomycin 1 GM/200 ML BAG ONE (08:08)
[2020-11-04] MEDS ORDERED: hydrALAZINE 20 MG/ML VIAL SLOW IVP PRN (08:21)
[2020-11-04] MEDS ORDERED: Benzonatate 100 MG CAP PO PRN (08:21)
[2020-11-04] MEDS ORDERED: Dextrose 50% Abboject 50 ML SYRINGE SLOW IVP PRN (08:21)
[2020-11-04] MEDS ORDERED: Acetaminophen 325 MG TAB PO PRN (08:21)
[2020-11-04] MEDS ORDERED: HumaLOG 300 UNITS/3 ML VIAL SC PRN (08:21)
[2020-11-04] MEDS ORDERED: Dextrose 5% in Water 1,000 ML IV PRN (08:21)
[2020-11-04] MEDS ORDERED: Vancomycin 1 GM in Premix Bag 1 BAG IVPB SCH (09:00)
--- NOTE | 2020-11-04 09:02 | RAD ---
XR Chest 1 View Portable History: Pneumonia Comparison: Radiograph September 2020 Findings: Moderate lower lobe airspace consolidation. No pneumothorax. No acute osseous abnormality. Impression: Commonly reported imaging findings of COVID-19 pneumonia.
[2020-11-04] MEDS ORDERED: Iopamidol-370 76% 500 ML 1 ML ONE (09:42)
[2020-11-04 11:21] VITALS: BMI 24.3
[2020-11-04] MEDS ORDERED: Enoxaparin Sodium 40 MG/0.4 ML SYRINGE ONE (11:30)
[2020-11-04] MEDS ORDERED: predniSONE 20 MG TAB ONE (11:30)
[2020-11-04] MEDS: Enoxaparin Sodium 40 MG/0.4 ML SYRINGE SC SCH (11:43)
[2020-11-04] MEDS: predniSONE 20 MG TAB PO SCH (11:44)
[2020-11-04] MEDS ORDERED: Vancomycin HCl 500 MG in Sodium Chloride 0.9% 100 ML IVPB SCH (11:45)
[2020-11-04] MEDS: Cefepime 2 GM in Sodium Chloride 0.9% 100 ML IVPB SCH ×2 (15:16→20:08)
[2020-11-04] MEDS ORDERED: Albuterol 200 PUFF (6.7GM INHALER) INH PRN (15:30)
--- NOTE | 2020-11-04 18:08 | CON ---
DATE OF CONSULTATION: 11/04/2020 CONSULTING PHYSICIAN: Immanuel Wade MD REASON FOR CONSULTATION: Hospital-acquired pneumonia. HISTORY OF PRESENT ILLNESS: The patient is a 75-year-old male who had COVID the last week of September. He was just discharged to rehab about a week ago. He came back with increasing shortness of breath. He had a CT pulmonary angiogram which showed no pulmonary embolism, but has profound fibrotic changes in both bases. PAST MEDICAL HISTORY: 1. COVID-19 pneumonia. 2. COPD. 3. Hypertension. 4. Coronary artery disease. 5. Gastroesophageal reflux. 6. Diabetes mellitus. PAST SURGICAL HISTORY: Coronary artery bypass grafting surgery. FAMILY MEDICAL HISTORY: Unremarkable. SOCIAL HISTORY: Smoked in the distant past. Does not consume alcohol. Does not use illicit drugs. ALLERGIES: NONE. MEDICATIONS: Prior to admission; 1. Lispro insulin. 2. Flomax. 3. Glucophage. 4. Glucotrol. 5. ProAir. 6. Vitamin C. 7. Vitamin D3. 8. Symbicort. 9. Breo Ellipta. 10. Dexamethasone. 11. Levemir. 12. Metoprolol. 13. Zinc. 14. Atorvastatin. 15. Aspirin. 16. Famotidine. 17. Omeprazole. 18. Multivitamin. 19. Lantus insulin. REVIEW OF SYSTEMS: Remarkable for cough, some hemoptysis. PHYSICAL EXAMINATION: VITAL SIGNS: Pulse is running in the 80s, O2 saturation 96% on 50% high-flow nasal cannula, and respiratory rate 18. GENERAL: He is awake, alert, eating ice cream, in no distress. HEENT: Unremarkable. NECK: No adenopathy or JVD. LUNGS: Inspiratory crackles at both bases. CARDIAC: S1, S2 regular. ABDOMEN: Soft and nontender. EXTREMITIES: No clubbing, cyanosis, or edema. LABORATORY DATA: White blood cell count 8.7, hematocrit 44.7, and platelet count 297. The pH of 7.5, pCO2 of 30, pO2 of 67. Sodium 136, potassium 5.2, chloride 98, CO2 of 27, BUN 24, creatinine 0.9, glucose 126. Reviewed CT in detail. ASSESSMENT: 1. COVID-19 pneumonia - worsening of CT is probably the after affected COVID. 2. Underlying emphysema/interstitial lung disease. 3. Possibility of secondary pneumonia. PLAN: Agree with cefepime and vancomycin, steroids, breathing treatments, and high-flow oxygen. Hopefully, he will need more than a day or 2 of hospitalization for return of rehab. Job ID: [id number]
[2020-11-04] MEDS: HumaLOG 300 UNITS/3 ML VIAL SC PRN (18:11)
[2020-11-04] MEDS ORDERED: HumaLOG 300 UNITS/3 ML VIAL ONE (18:13)
[2020-11-04] MEDS ORDERED: Arformoterol 15 MCG/2 ML NEB NEB SCH ×2 (18:30)
[2020-11-04] MEDS: Mometasone 100 MCG/Formoterol 5 MCG 120 PUFF INHALER INH SCH (21:00)
[2020-11-04] MEDS: Albuterol 200 PUFF (6.7GM INHALER) INH SCH (21:00)
[2020-11-04 22:33] LABS: Lactic Acid 1.5 mmol/L (0.5-2.2)
[2020-11-04 22:38] LABS: Anion Gap 17 mmol/L (10-20); BUN (Urea Nitrogen) 26 mg/dL (8.4-25.7); Calc. Creatinine Clearance 64 mL/min (70-130); Calcium 8.9 mg/dL (7.8-10.44); Carbon Dioxide 21 mmol/L (23-31); Chloride 102 mmol/L (98-107); Glucose 133 mg/dL (83-110); Magnesium 2.2 mg/dL (1.6-2.6); Potassium 4.6 mmol/L (3.5-5.1); Sodium 135 mmol/L (136-145)
[2020-11-05] MEDS: Albuterol 200 PUFF (6.7GM INHALER) INH SCH ×4 (00:15→18:49)
[2020-11-05] MEDS: Sodium Chloride 0.9% 1,000 ML IV SCH ×2 (00:15→22:22)
[2020-11-05] MEDS ORDERED: Lidocaine 2% Viscous Solution 10 ML, Aluminum & Magnesium Hydroxide 30 ML SSW SCH (01:15)
[2020-11-05 05:00] LABS: #Basophils 0.1 thou/uL (0.0-0.2); #Eosinphils 0.1 thou/uL (0.0-0.7); #Lymphocytes 0.6 thou/uL (1.20-3.40); #Monocytes 0.9 thou/uL (0.11-0.59); #Neutrophils 8.9 thou/uL (1.40-6.50); %Basophils 0.5 % (0.0-1.0); %Eosinophils 0.5 % (0.0-10.0); %Lymphocytes 5.9 % (21.0-51.0); %Monocytes 8.3 % (0.0-10.0); %Neutrophils 84.8 % (42.0-75.0); Hemoglobin 13.9 g/dL (14.0-18.0); Mean Corpuscular HGB CONC 32.9 g/dL (32.0-36.0); Mean Corpuscular Hemoglobin 30.3 pg (27.0-31.0); Mean Corpuscular Volume 92.1 fL (78.0-98.0); Mean Platelet Volume 7.7 fL (7.4-10.4); Platelet Count 264 thou/uL (130-400); RBC Distribution Width 12.2 % (11.5-14.5); Red Blood Cell (RBC) Count 4.57 mill/uL (4.70-6.10); White Blood Cell (WBC) Count 10.5 thou/uL (4.8-10.8)
[2020-11-05] MEDS: Calcium Carbonate 500 MG ChewTAB PO PRN ×2 (05:13→13:07)
[2020-11-05 05:26] LABS: Anion Gap 14 mmol/L (10-20); BUN (Urea Nitrogen) 23 mg/dL (8.4-25.7); Calc. Creatinine Clearance 78 mL/min (70-130); Calcium 8.6 mg/dL (7.8-10.44); Carbon Dioxide 24 mmol/L (23-31); Chloride 101 mmol/L (98-107); Glucose 130 mg/dL (83-110); Potassium 4.1 mmol/L (3.5-5.1); Sodium 135 mmol/L (136-145)
[2020-11-05] MEDS: Mometasone 100 MCG/Formoterol 5 MCG 120 PUFF INHALER INH SCH ×2 (06:34→18:48)
[2020-11-05] MEDS: predniSONE 20 MG TAB PO SCH (08:28)
[2020-11-05] MEDS: Enoxaparin Sodium 40 MG/0.4 ML SYRINGE SC SCH (08:28)
[2020-11-05] MEDS: Cefepime 2 GM in Sodium Chloride 0.9% 100 ML IVPB SCH ×2 (08:33→21:47)
[2020-11-05] MEDS ORDERED: traZODone HCl 50 MG TAB PO PRN (08:51)
--- NOTE | 2020-11-05 08:54 | PDOC.HOSPP ---
- Subjective Encounter Date: 11/05/20 Encounter Time: 08:52 Subjective: Mr. Oconnell was seen today in follow-up of pneumonia, and recent COVID infection. He does not feel like his breathing is any better, despite having less oxygen requirements. He also is complaining of heart burn. - Objective Vital Signs & Weight: Vital Signs (12 hours) Temp Pulse Resp BP Pulse Ox 11/05/20 04:00 97.7 F 105 H 20 114/70 99 11/05/20 00:16 97.9 F 112 H 22 H 141/75 H 95 Weight Weight 174 lb 2.643 oz Result Diagrams: 11/05/20 04:20 11/05/20 04:20 Additional Labs: Accuchecks 11/04/20 11/04/20 20:29 17:56 POC Glucose 166 H 331 H Hospitalist ROS - Medication Medications: Active Medications Generic Name Dose Route Start Last Admin Trade Name Freq PRN Reason Stop Dose Admin Albuterol Sulfate 2 puff 11/04/20 19:00 11/05/20 06:34 Albuterol 200 Puff (6.7gm Inhaler) INH 2 puff [id number] PRETTY Administration Calcium Carbonate 1,000 mg 11/04/20 08:21 11/05/20 05:13 Calcium Carbonate 500 Mg Chewtab PO 1,000 mg Q4H PRN Administration Heartburn or Indigestion Enoxaparin Sodium 40 mg 11/04/20 09:00 11/05/20 08:28 Enoxaparin Sodium 40 Mg/0.4 Ml Syringe SC 40 mg 0900 PRETTY Administration Cefepime HCl 2 gm/ Sodium 100 mls @ 200 mls/hr 11/04/20 09:00 11/05/20 08:33 Chloride IVPB 100 mls Q12HR PRETTY Administration Sodium Chloride 1,000 mls @ 45 mls/hr 11/04/20 23:59 11/05/20 00:15 Normal Saline 0.9% IV 1,000 mls .[id number] PRETTY Administration Insulin Human Lispro 0 units 11/04/20 08:21 11/04/20 18:11 Humalog 300 Units/3 Ml Vial SC 8 unit .MODERATE SLIDING SC PRN Administration Moderate Correctional Scale Mometasone Furoate/Formoterol Fumar 1 puff 11/04/20 18:30 11/05/20 06:34 Mometasone 100 Mcg/Formoterol 5 Mcg 120 Puff Inhaler INH 1 puff BID-RT PRETTY Administration Prednisone 40 mg 11/04/20 09:00 11/05/20 08:28 Prednisone 20 Mg Tab PO 40 mg DAILY PRETTY Administration - Exam Eye: PERRL, anicteric sclera Heart: RRR, no murmur, no gallops, no rubs, normal peripheral pulses Respiratory: CTAB (rales at both bases), no wheezes, no ronchi, rales Gastrointestinal: soft, non-tender, non-distended, normal bowel sounds, no palpable masses, no hepatomegaly, no splenomegaly Extremities: no cyanosis, no edema Hosp A/P (1) Acute respiratory failure with hypoxia Code(s): J96.01 - ACUTE RESPIRATORY FAILURE WITH HYPOXIA Status: Acute (2) DM (diabetes mellitus), type 2, uncontrolled Code(s): E11.65 - TYPE 2 DIABETES MELLITUS WITH HYPERGLYCEMIA Status: Chronic Qualifiers: Glycemic state: with hyperglycemia Qualified Code(s): E11.65 - Type 2 diabetes mellitus with hyperglycemia (3) Pneumonia due to COVID-19 virus Code(s): U07.1 - COVID-19; J12.89 - OTHER VIRAL PNEUMONIA Status: Chronic (4) CAD (coronary artery disease) Code(s): I25.10 - ATHSCL HEART DISEASE OF [place] CORONARY ARTERY W/O ANG PCTRS Status: Chronic Qualifiers: Coronary Disease-Associated Artery/Lesion type: [place] artery [place] vs. transplanted heart: [place] heart Associated angina: without angina Qualified Code(s): I25.10 - Atherosclerotic heart disease of [place] coronary artery without angina pectoris (5) COPD (chronic obstructive pulmonary disease) Status: Chronic Qualifiers: Emphysema type: unspecified (6) HLD (hyperlipidemia) Code(s): E78.5 - HYPERLIPIDEMIA, UNSPECIFIED Status: Chronic (7) HTN (hypertension) Code(s): I10 - ESSENTIAL (PRIMARY) HYPERTENSION Status: Chronic Qualifiers: Hypertension type: essential hypertension Qualified Code(s): I10 - Essen tial (primary) hypertension - Plan * Acute respiratory failure - possibly due to HAP- continue broad spectrum antibiotics * COPD- he does not appear to have an active attack- continue maintenance medications and prn duonebs * HTN- blood pressure is stable- will re-start his home medications * DM- blood glucose is stable- re-start home medications as well as SSI * GERD- start a PPI * Pulmonary recommendations appreciated
[2020-11-05] MEDS ORDERED: Non-Formulary Item 1 EACH (Multivitamin With Minerals [Multiple Vitamin] 1 TABLET Tablet) PO SCH (09:00)
[2020-11-05] MEDS ORDERED: Non-Formulary Item 1 EACH (Ascorbic Acid [Vitamin C] 1,000 MG Tablet) PO SCH (09:00)
[2020-11-05] MEDS: Multivitamin W/ Minerals 1 TAB PO SCH (10:25)
[2020-11-05] MEDS: Tamsulosin HCl 0.4 MG CAP PO SCH (10:25)
[2020-11-05] MEDS: Aspirin 325 mg Enteric Coated Tablet PO SCH (10:25)
[2020-11-05] MEDS: Polyethylene Glycol 3350 17 GM Packet PO SCH (10:25)
[2020-11-05] MEDS: Ascorbic Acid 500 mg Chewable Tablet PO SCH (10:25)
[2020-11-05] MEDS: Insulin Glargine 10 UNITS in Pre-Filled Syringe 1 EACH SC SCH (10:26)
[2020-11-05] MEDS: Vancomycin 1.5 GRAM/300 ML BAG 1.5 GM in Premix Bag 1 BAG IVPB SCH (10:41)
[2020-11-05] MEDS: Zinc Sulfate 220 MG CAP PO SCH (10:42)
--- NOTE | 2020-11-05 11:04 | PRG ---
DATE OF SERVICE: 11/05/2020 SUBJECTIVE: The patient feels better. He has been weaned down to 4 L nasal cannula off the high-flow oxygen. OBJECTIVE: VITAL SIGNS: On exam, temperature 97.7, pulse 107, respirations 20, O2 saturation 97% on 4 L, and blood pressure 113/75. HEENT: Unremarkable. NECK: No JVD. CHEST: Clear. CARDIAC: S1 and S2. Regular. ABDOMEN: Soft. EXTREMITIES: No edema. LABORATORY DATA: White blood cell count 10.5, hematocrit 42.1, and platelet count 264. Sodium 135, BUN 23, creatinine 0.9, and glucose 130. ASSESSMENT: 1. COVID-19 pneumonia. 2. Underlying interstitial lung disease. 3. Question secondary pneumonia. PLAN: Continue current antibiotics. He can probably do this over at rehab as he is quickly returned to his baseline. I would finish out 7 days of antibiotics and stop. I would wean his prednisone slowly over a month. Please recall if further assistance needed. Job ID: [id number]
[2020-11-05] MEDS: HumaLOG 300 UNITS/3 ML VIAL SC PRN ×2 (13:06→16:59)
--- NOTE | 2020-11-05 13:35 | EKG ---
Test Reason : STAT Blood Pressure : / mmHG Vent. Rate : 112 BPM Atrial Rate : 112 BPM P-R Int : 122 ms QRS Dur : 088 ms QT Int : 340 ms P-R-T Axes : 054 013 -10 degrees QTc Int : 464 ms Sinus tachycardia Nonspecific ST abnormality Abnormal ECG Confirmed by RAMYA LINK ([id number]) on 11/05/2020 1:35:15 PM Referred By: JACKY Confirmed By:RAMYA LINK
[2020-11-05] MEDS ORDERED: Ondansetron ODT 4 MG TAB PO PRN (17:27)
[2020-11-05] MEDS ORDERED: Atorvastatin Calcium 20 MG TAB PO SCH (21:00)
[2020-11-06] MEDS: Albuterol 200 PUFF (6.7GM INHALER) INH SCH ×3 (01:57→12:32)
[2020-11-06] MEDS: Mometasone 100 MCG/Formoterol 5 MCG 120 PUFF INHALER INH SCH (07:27)
[2020-11-06] MEDS ORDERED: Non-Formulary Item 1 EACH (Omeprazole [Omeprazole] 20 MG Tablet.Dr) PO SCH (09:00)
[2020-11-06 09:23] LABS: Vancomycin, Trough 7.5 ug/mL
[2020-11-06] MEDS: Aspirin 325 mg Enteric Coated Tablet PO SCH (09:36)
[2020-11-06] MEDS: Enoxaparin Sodium 40 MG/0.4 ML SYRINGE SC SCH (09:36)
[2020-11-06] MEDS: Zinc Sulfate 220 MG CAP PO SCH (09:36)
[2020-11-06] MEDS: predniSONE 20 MG TAB PO SCH (09:36)
[2020-11-06] MEDS: Polyethylene Glycol 3350 17 GM Packet PO SCH (09:36)
[2020-11-06] MEDS: Tamsulosin HCl 0.4 MG CAP PO SCH (09:36)
[2020-11-06] MEDS: Cefepime 2 GM in Sodium Chloride 0.9% 100 ML IVPB SCH (09:36)
[2020-11-06] MEDS: Ascorbic Acid 500 mg Chewable Tablet PO SCH (09:37)
--- NOTE | 2020-11-06 09:56 | PDOC.HOSPP ---
- Subjective Encounter Date: 11/06/20 Encounter Time: 09:53 Subjective: Mr. Oconnell was seen today in follow-up of HAP. He admits he is feeling better/ He says his breathing has improved.l - Objective Vital Signs & Weight: Vital Signs (12 hours) Temp Pulse Resp BP Pulse Ox 11/06/20 07:43 94 L 11/06/20 04:00 97.2 F L 73 16 103/62 94 L 11/06/20 02:05 97.6 F 88 20 100/65 95 Weight Admit Weight 174 lb 2.64 oz Weight 174 lb 2.64 oz I&O: 11/05/20 11/06/20 11/07/20 06:59 06:59 06:59 Intake Total 1390 Balance 1390 Result Diagrams: 11/05/20 04:20 11/05/20 04:20 Additional Labs: Accuchecks 11/06/20 11/05/20 11/05/20 05:01 21:18 15:40 POC Glucose 96 180 H 216 H 11/05/20 11:19 POC Glucose 248 H Hospitalist ROS - Medication Medications: Active Medications Generic Name Dose Route Start Last Admin Trade Name Freq PRN Reason Stop Dose Admin Albuterol Sulfate 2 puff 11/04/20 19:00 11/06/20 07:27 Albuterol 200 Puff (6.7gm Inhaler) INH 2 puff [id number] PRETTY Administration Ascorbic Acid 1,000 mg 11/05/20 09:00 11/05/20 10:25 Ascorbic Acid 500 Mg Chewable Tablet PO 1,000 mg DAILY PRETTY Administration Aspirin 325 mg 11/05/20 09:00 11/05/20 10:25 Aspirin 325 Mg Enteric Coated Tablet PO 325 mg DAILY PRETTY Administration Atorvastatin Calcium 20 mg 11/05/20 21:00 11/05/20 21:47 Atorvastatin Calcium 20 Mg Tab PO 20 mg HS PRETTY Administration Calcium Carbonate 1,000 mg 11/04/20 08:21 11/05/20 13:07 Calcium Carbonate 500 Mg Chewtab PO 1,000 mg Q4H PRN Administration Heartburn or Indigestion Enoxaparin Sodium 40 mg 11/04/20 09:00 11/05/20 08:28 Enoxaparin Sodium 40 Mg/0.4 Ml Syringe SC 40 mg 0900 PRETTY Administration Glipizide 2.5 mg 11/06/20 07:30 11/06/20 09:18 Glipizide Xl 2.5 Mg Tablet PO Not Given DAILY-AC PRETTY Cefepime HCl 2 gm/ Sodium 100 mls @ 200 mls/hr 11/04/20 09:00 11/05/20 21:47 Chloride IVPB 100 mls Q12HR PRETTY Administration Vancomycin HCl 1.5 gm/ Device 300 mls @ 200 mls/hr 11/05/20 10:00 11/05/20 10:41 IVPB 300 mls 1000 PRETTY Administration Sodium Chloride 1,000 mls @ 45 mls/hr 11/04/20 23:59 11/05/20 22:22 Normal Saline 0.9% IV 1,000 mls .[id number] PRETTY Administration Insulin Glargine 10 units/ 0.1 mls @ 0 mls/hr 11/05/20 09:00 11/05/20 10:26 Miscellaneous Medication SC 0.1 mls QAM PRETTY Administration Insulin Human Lispro 0 units 11/04/20 08:21 11/05/20 16:59 Humalog 300 Units/3 Ml Vial SC 4 unit .MODERATE SLIDING SC PRN Administration Moderate Correctional Scale Iron/Minerals/Multivitamins 1 tab 11/05/20 09:00 11/05/20 10:25 Multivitamin W/ Minerals 1 Tab PO 1 tab DAILY PRETTY Administration Metoprolol Succinate 25 mg 11/05/20 09:00 11/05/20 10:25 Metoprolol Succinate Xl 25 Mg Tab PO 25 mg DAILY PRETTY Administration Mometasone Furoate/Formoterol Fumar 1 puff 11/04/20 18:30 11/06/20 07:27 Mometasone 100 Mcg/Formoterol 5 Mcg 120 Puff Inhaler INH 1 puff BID-RT PRETTY Administration Polyethylene Glycol 17 gm 11/05/20 09:00 11/05/20 10:25 Polyethylene Glycol 3350 17 Gm Packet PO 17 gm DAILY PRETTY Administration Prednisone 40 mg 11/04/20 09:00 11/05/20 08:28 Prednisone 20 Mg Tab PO 40 mg DAILY PRETTY Administration Sodium Chloride 10 ml 11/05/20 21:00 11/05/20 21:47 Flush - Normal Saline 10 Ml Syringe IVF 10 ml Q12HR PRETTY Administration Tamsulosin HCl 0.4 mg 11/05/20 09:00 11/05/20 10:25 Tamsulosin Hcl 0.4 Mg Cap PO 0.4 mg DAILY PRETTY Administration Zinc Sulfate 220 mg 11/05/20 09:00 11/05/20 10:42 Zinc Sulfate 220 Mg Cap PO 220 mg DAILY PRETTY Administration - Exam Eye: PERRL, anicteric sclera Heart: RRR, no murmur, no gallops, no rubs, normal peripheral pulses Respiratory: no wheezes, no ronchi, rales (at both bases) Gastrointestinal: soft, non-tender, non-distended, normal bowel sounds, no palpable masses, no hepatomegaly Extremities: no cyanosis, no edema Hosp A/P (1) Acute respiratory failure with hypoxia Code(s): J96.01 - ACUTE RESPIRATORY FAILURE WITH HYPOXIA Status: Acute (2) DM (diabetes mellitus), type 2, uncontrolled Code(s): E11.65 - TYPE 2 DIABETES MELLITUS WITH HYPERGLYCEMIA Status: Chronic Qualifiers: Glycemic state: with hyperglycemia Qualified Code(s): E11.65 - Type 2 diabetes mellitus with hyperglycemia (3) Pneumonia due to COVID-19 virus Code(s): U07.1 - COVID-19; J12.89 - OTHER VIRAL PNEUMONIA Status: Chronic (4) CAD (coronary artery disease) Code(s): I25.10 - ATHSCL HEART DISEASE OF [place] CORONARY ARTERY W/O ANG PCTRS Status: Chronic Qualifiers: Coronary Disease-Associated Artery/Lesion type: [place] artery [place] vs. transplanted heart: [place] heart Associated angina: without angina Qualified Code(s): I25.10 - Atherosclerotic heart disease of [place] coronary artery without angina pectoris (5) COPD (chronic obstructive pulmonary disease) Status: Chronic Qualifiers: Emphysema type: unspecified (6) HLD (hyperlipidemia) Code(s): E78.5 - HYPERLIPIDEMIA, UNSPECIFIED Status: Chronic (7) HTN (hypertension) Code(s): I10 - ESSENTIAL (PRIMARY) HYPERTENSION Status: Chronic Qualifiers: Hypertension type: essential hypertension Qualified Code(s): I10 - Ess ential (primary) hypertension - Plan * Acute respiratory failure - possibly due to HAP- continue broad spectrum antibiotics to complete a 7-10 day course * COPD- continue maintenance medications and prn duonebs * HTN- blood pressure is stable- * DM- blood glucose is overall stable * GERD-continue Protonix * He can be transitioned back to Rehab on IV Cefepime and Vancomycin to complete a 7-10 day course
[2020-11-06] MEDS: Multivitamin W/ Minerals 1 TAB PO SCH (10:17)
[2020-11-06] MEDS: Vancomycin 1.5 GRAM/300 ML BAG 1.5 GM in Premix Bag 1 BAG IVPB SCH (10:19)
[2020-11-06] MEDS ORDERED: Vancomycin 1 GM in Premix Bag 1 BAG IVPB SCH (11:00)
[2020-11-06] MEDS: Insulin Glargine 10 UNITS in Pre-Filled Syringe 1 EACH SC SCH (11:09)
[2020-11-06] MEDS: HumaLOG 300 UNITS/3 ML VIAL SC PRN ×2 (12:32→16:40)
[2020-11-06 16:38] VITALS: BP 97/62; TEMP 97.4
--- NOTE | 2020-11-06 19:25 | DIS ---
DATE OF ADMISSION: 11/04/2020 DATE OF DISCHARGE: 11/06/2020 DISCHARGE DISPOSITION: To inpatient rehab. DISCHARGE DIAGNOSES: 1. Acute respiratory failure with hypoxemia. 2. Healthcare-associated pneumonia. 3. Coronary artery disease. 4. Hypertension. 5. Chronic obstructive pulmonary disease. 6. Diabetes mellitus. DISCHARGE MEDICATIONS: Include; 1. Cefepime 2 g IV q.12 for 7 days. 2. Vancomycin 1 g IV q.12 for 7 days. 3. Tums 1000 mg q.4 hours as needed. 4. Tessalon Perles 100 mg q.6. 5. Protonix 40 mg p.o. daily. 6. Prednisone 40 mg p.o. daily. 7. Lovenox 40 mg subcu daily. 8. Glipizide 2.5 mg p.o. daily. 9. Metformin 500 mg p.o. b.i.d. 10. Dulera 100/5 one puff twice a day. 11. Zinc sulfate 220 mg p.o. daily. 12. Vitamin D3 of 125 mcg p.o. daily. 13. Vitamin C 1000 mg p.o. daily. 14. Trazodone 50 mg p.o. at bedtime. 15. Multivitamin once daily. 16. Metoprolol extended release 25 mg p.o. daily. 17. Levemir 10 units daily. 18. Flomax 0.4 mg daily. 19. Atorvastatin 20 mg daily. 20. Aspirin 325 mg a day. IMAGING DONE DURING HOSPITAL STAY: The patient had a CT angiogram of the chest in which there was no pulmonary embolism and there was scattered ground-glass opacities with background changes of emphysema. CODE STATUS: Chemical intubate only. ALLERGIES: NO KNOWN DRUG ALLERGIES. HOSPITAL COURSE: Mr. Oconnell is a pleasant 75-year-old gentleman, who was recently hospitalized for COVID pneumonia. He was treated and released to the inpatient rehabilitation center. He was doing well for several days until he began noticing some difficulty breathing 3 days prior to admission. He also had a low-grade temperature. He was evaluated in the emergency room and initially required supplemental oxygen in the form of high-flow oxygen. He was admitted and given his recent admission with COVID pneumonia. Pulmonology was consulted. It is felt that this could either represent a recrudescence of the COVID infection, which is unlikely versus a healthcare-associated bacterial pneumonia. He was treated with broad-spectrum IV antibiotics and actually over night, his oxygen saturation improved and he was able to be transitioned back to a nasal cannula. He was also seen by the Physical Therapy Team during his hospital stay and with his rapid improvement, was able to be discharged back to inpatient rehab. Job ID: [id number]
--- NOTE | 2020-11-08 04:34 | PQF ---
Dear : Immanuel Wade Date / Time: 11/08/20 Please exercise your independent, professional judgment in responding to the clarification form. Clinical indicators are provided on the bottom of this form for your review Can you please further clarify the diagnosis of the patient? Please check appropriate box(es): [ ] Empirically treating Gram Negative Pneumonia [ ] Empirically treating Anaerobic Pneumonia [ ] Pneumonia secondary to (specify organism / underlying disease) [ ] Healthcare associated Pneumonia [ ] Pneumonia of unknown etiology [ ] COVID Pneumonia [ X ] Other diagnosis,please specify [ ] Unable to determine In addition can you please further clarify if COVID19 pneumonia is History only or current condition [ ] COVID Pneumonia current condition [ ] History of COVID Pneumonia only [ ] Other diagnosis, please specify [ ] Unable to determine Physician Signature: Date/Time: For continuity of documentation, please document condition throughout progress notes and discharge summary. Thank You. To be completed by CDI/Coding staff for physician review: Present Clinical Indicators - Signs / Symptoms / Labs Results and Location in Medical Record [ x ] Pneumonia ED Provider pg.5 [ x ] COVID ED Provider pg.5 [ x ] He was recently admitted to our facility for COVID Pneumonia H and P pg.1 [ x ] He is being admitted for hospital-acquired or health associated pneumonia H and P pg.1 [ x ] Pneumonia due to COVID 19, status chronic H and P pg.4 [ x ] He could have residual COVID19 pneumonia but his is unlikely H and P pg.4 [ x ] COVID 19 pneumonia PN pg.1 11/05 [ x ] Question secondary pneumonia PN pg.1 11/05 [ x ] Represent a recrudescence of the COVID pneumonia, which is unlikely vs a health care associated bacterial Pneumonia Hospitalist PN pg.4 [ x ] Chest Xray: Moderate lower lobe airspace consolidation Chest Xray 11/04 [ x ] WBC: 11/04=8.7 11/05=10.5 Laboratory 11/04 Present Risk Factors Results and Location in Medical Record [ x ] Acute respiratory failure H and P pg.4 [ x ] COPD H and P pg.4 [ x ] CAD H and P pg.4 [ x ] Former Smoker ED Notes 11/04 [ x ] 75 years old male HP 11/04 [ x ] DM HP 11/04 Present Treatments Results and Location in Medical Record [ x ] IV Fluids DEC [ x ] Pulmonary Consult Dr. Lopez 11/04 [ x ] Dexamethasone 4mg Tab DEC [ x ] Levaquin 752mg IV MAR [ x ] Vancomycin 1gm IV DEC [ x ] Cefepime 2gm IV DEC 17 CDS/Back Stayer Signature: Oscar Melara Phone #: [phone] Date 11/08/20 This is a permanent part of the Medical Record [facility]
--- NOTE | 2020-11-24 19:08 | EKG ---
Test Reason : SOB Blood Pressure : / mmHG Vent. Rate : 093 BPM Atrial Rate : 093 BPM P-R Int : 116 ms QRS Dur : 084 ms QT Int : 366 ms P-R-T Axes : 088 022 020 degrees QTc Int : 455 ms Normal sinus rhythm Nonspecific ST and T wave abnormality Abnormal ECG Confirmed by BALA CODY ([id number]), commercial production editor RANDY VELASQUEZ ([id number]) on 11/24/2020 7:08:08 PM Referred By: Confirmed By:BALA CODY
== END 2020-11-06 17:11 | DRG 193 ==
LOC: ERS 04:43 → ERHOLD 07:20 → 2SE 19:32
PROVIDERS: ADMIT Internal Medicine; ATTEND Internal Medicine
DX: J15.9 Unspecified bacterial pneumonia (principal); J96.01 Acute respiratory failure with hypoxia; Z86.16 Personal history of COVID-19; I25.10 Atherosclerotic heart disease of native coronary artery without angina pectoris; I10 Essential (primary) hypertension; E78.5 Hyperlipidemia, unspecified; E11.65 Type 2 diabetes mellitus with hyperglycemia; J43.9 Emphysema, unspecified; Z79.51 Long term (current) use of inhaled steroids; Z79.82 Long term (current) use of aspirin; Z79.899 Other long term (current) drug therapy; Z79.4 Long term (current) use of insulin; Z95.1 Presence of aortocoronary bypass graft
CPT/HCPCS: 36415; 36416; 36600; 71045; 71275; 80048; 80053; 80202; 82805; 83605; 83735; 83880; 84443; 84484; 85025; 87040; 93005; 93010; 94664; 94760; 96365; 96367; J0692; J1650; J1815; J1956; J3370; J3490; J7512; Q9967

== ENCOUNTER 2020-12-03 20:30 | Inpatient (IN) | payer MEDICARE ==
[2020-12-04] MEDS ORDERED: Ondansetron PF 4 MG/2 ML Vial IVP PRN (00:06)
[2020-12-04] MEDS ORDERED: hydrALAZINE 20 MG/ML VIAL SLOW IVP PRN (00:06)
[2020-12-04] MEDS ORDERED: Dextrose 5% in Water 1,000 ML IV PRN (00:06)
[2020-12-04] MEDS ORDERED: Dextrose 50% Abboject 50 ML SYRINGE SLOW IVP PRN (00:06)
[2020-12-04] MEDS ORDERED: Cyclobenzaprine 10 MG TAB PO PRN (00:18)
[2020-12-04] MEDS ORDERED: Morphine 2 MG/ML VIAL ONE (00:20)
[2020-12-04 00:28] VITALS: BMI 24.5
[2020-12-04] MEDS ORDERED: Sodium Chloride 0.9% 1,000 ML IV SCH (01:00)
[2020-12-04] MEDS ORDERED: traMADol HCl 50 MG TAB PO SCH (01:00)
[2020-12-04] MEDS: Acetaminophen 500 MG TAB PO SCH ×4 (02:14→18:07)
--- NOTE | 2020-12-04 03:42 | HP ---
This is Geena Law NP dictating a report for Wallace Mcginnis MD. REQUESTING PHYSICIAN: Dr. Kendall. CONSULTS: Orthopedic Surgery, Dr. Tanner. PRIMARY CARE PHYSICIAN: Dr. Powell CHIEF COMPLAINT: Mechanical fall at home, left hip fracture. HISTORY OF PRESENT ILLNESS: This is a 75-year-old gentleman who presented to [place] [facility] after a mechanical fall at home. The patient reported left hip pain. It was reported that he was bending over to pickup driver his cellphone and lost his balance causing him to fall. The patient reports hitting his head but no loss of consciousness. The patient is not on any blood thinners. The patient denied feeling weak, dizzy, lightheaded, short of breath or having chest pain prior to falling. The patient was diagnosed with COVID pneumonia in the end of September and the patient was in and out of rehab for generalized weakness since then. The patient continues to have a wet sounding cough since being diagnosed. The patient states his cough is nonproductive. The patient also still complains of being short of breath. The patient was evaluated and found to have a left hip fracture requiring transfer to [facility] for orthopedic services. PAST MEDICAL HISTORY: Coronary artery disease, hypertension, COVID pneumonia, chronic obstructive pulmonary disease, gastroesophageal reflux disease, diabetes. SURGICAL HISTORY: CABG in 2009, mitral valve replacement. SOCIAL HISTORY: The patient lives at home with his in [place], the patient states that he drinks 1 drink daily, denies any history of alcohol withdrawal, the patient is a former smoker, stopped approximately 20 years ago, the patient smoked for approximately 40 years. ALLERGIES: NO KNOWN DRUG ALLERGIES. CURRENT MEDICATIONS: 1. Albuterol inhaler. 2. Vitamin C 1000 mg p.o. daily. 3. Aspirin 325 mg p.o. daily. 4. Atorvastatin 20 mg p.o. h.s. 5. Tessalon Perles 100 mg p.o. q.6 hours. 6. Vitamin D3 125 mcg p.o. daily. 7. Dexamethasone 4 mg p.o. daily. 8. Glipizide 2.5 mg p.o. daily a.c. 9. Metformin 500 mg p.o. b.i.d. with meals. 10. Metoprolol succinate 25 mg p.o. daily. 11. Dulera 100 mcg/5 mcg inhaler. 12. Multivitamin. 13. Flomax 0.4 mg p.o. daily. 14. Trazodone 50 mg p.o. h.s. 15. Zinc 220 mg p.o. daily. REVIEW OF SYSTEMS: Negative unless otherwise indicated in the above HPI. OBJECTIVE: VITAL SIGNS: Blood pressure 138/78, temp 98.0, pulse 124, respirations 18, SpO2 of 94% on room air. GENERAL: Elderly male, awake, alert, in no distress. HEENT: Atraumatic, normocephalic. Pupils are equal bilateral. Normal ear and nose exam, mucous membranes moist. NECK: No cervical spine tenderness, normal range of motion of neck, trachea midline. RESPIRATORY: Good inspiratory and expiratory effort, positive wet sounding cough, but nonproductive, breath sounds are clear bilateral, respirations are even and nonlabored. CARDIOVASCULAR: Mildly tachycardic, regular rate, regular rhythm, no murmurs, no pedal edema. ABDOMEN: Soft, nontender, nondistended. EXTREMITIES: Moves all extremities, neurovascularly intact x4, left lower extremity mildly shortened and externally rotated. NEUROLOGIC: GCS 15, the patient is slightly delayed speech when answering questions, strength 5/5 in all extremities. Positive dorsiflexion and plantar flexion. SKIN: Warm, dry, normal color. LABORATORY DATA: WBC 7.5, RBC 3.75, hemoglobin 11.4, hematocrit 35.2, platelets 269. Sodium 139, potassium 4.2, chloride 103, carbon dioxide 23, BUN 14, creatinine 0.83, estimated GFR 90, glucose 235, calcium 9.1, AST 18, ALT 26, alkaline phos 122. Troponin I less than 0.010, albumin 3.9. DIAGNOSTICS: 1. 12-lead EKG sinus tachycardia, nonspecific T-wave changes. 2. Brain CT, impression; no acute intracranial abnormalities. 3. Cervical spine CT, impression degenerative changes of the cervical spine. No evidence of acute fracture. 4. Left femur x-ray, impression deformity of the left hip favored to represent an old subcapital fracture. 5. Pelvis x-ray, impression deformity of the left hip favored to represent an old subcapital fracture. 6. Left hip x-ray again deformity of the left hip favored to represent an old subcapital fracture. The patient is not aware of a remote, healed left hip fracture, please consider correlation with CT left hip to better evaluate for an acute injury. ASSESSMENT: 1. Mechanical fall. 2. Left subcapital hip fracture. 3. Chronic cough. 4. Acute traumatic pain secondary to above. 5. History of coronary artery disease, coronary artery bypass grafting, valve replacement, deconditioning, COVID pneumonia, diabetes, hypertension, and chronic obstructive pulmonary disease. PLAN: Admit to the surgical floor. Pain control. N.p.o. after midnight with plans for OR with Orthopedic Surgery in the morning. Mild sliding scale. PT/OT to eval and treat post op. Rehab screen. The plan will be discussed with the attending after this dictation. Job ID: [id number] MTDD
[2020-12-04 04:34] LABS: #Lymphocytes 0.6 thou/uL (1.20-3.40); #Monocytes 0.7 thou/uL (0.11-0.59); #Neutrophils 5.2 thou/uL (1.40-6.50); %Basophils 0.1 % (0.0-1.0); %Eosinophils 0.2 % (0.0-10.0); %Neutrophils 79.6 % (42.0-75.0); Hemoglobin 10.9 g/dL (14.0-18.0); Mean Corpuscular HGB CONC 32.7 g/dL (32.0-36.0); Mean Corpuscular Hemoglobin 30.6 pg (27.0-31.0); Mean Corpuscular Volume 93.6 fL (78.0-98.0); Mean Platelet Volume 6.9 fL (7.4-10.4); Platelet Count 272 thou/uL (130-400); RBC Distribution Width 13.8 % (11.5-14.5); Red Blood Cell (RBC) Count 3.55 mill/uL (4.70-6.10); White Blood Cell (WBC) Count 6.5 thou/uL (4.8-10.8)
[2020-12-04 04:52] LABS: Phosphorus 3.2 mg/dL (2.3-4.7)
[2020-12-04 04:55] LABS: Anion Gap 14 mmol/L (10-20); BUN (Urea Nitrogen) 9 mg/dL (8.4-25.7); Calc. Creatinine Clearance 104 mL/min (70-130); Calcium 8.8 mg/dL (7.8-10.44); Carbon Dioxide 25 mmol/L (23-31); Chloride 103 mmol/L (98-107); Glucose 196 mg/dL (83-110); Magnesium 1.7 mg/dL (1.6-2.6); Potassium 3.6 mmol/L (3.5-5.1); Sodium 138 mmol/L (136-145)
[2020-12-04] MEDS: traMADol HCl 50 MG TAB PO SCH ×4 (05:52→22:55)
[2020-12-04] MEDS: Morphine 2 MG/ML VIAL SLOW IVP PRN ×2 (07:05→13:55)
[2020-12-04] MEDS ORDERED: CEFAZOLIN 2 GM in Premix Bag 1 BAG IVPB SCH (08:00)
[2020-12-04] MEDS: Albuterol 200 PUFF (6.7GM INHALER) INH SCH ×3 (08:21→22:47)
--- NOTE | 2020-12-04 08:36 | CON ---
DATE OF CONSULTATION: 12/04/2020 This is an Orthopedic H and P. REQUESTING PHYSICIAN: Wallace Mcginnis MD BRIEF HISTORY OF PRESENT ILLNESS: The patient is a 75-year-old gentleman who was transferred from the [facility] after a ground level fall at home. He reports immediate left groin pain. Upon evaluation at the [facility], x-rays were obtained that demonstrated a minimally displaced femoral neck fracture. Due to comorbidities including a recent COVID illness, history of heart disease, it was decided the patient should be transferred to [facility] in [place] for definitive care. The patient as such, transferred to the Trauma Service and admitted with orthopedic consultation requested. PAST MEDICAL HISTORY: Remarkable for coronary artery disease, hypertension, COPD, gastroesophageal reflux, and diabetes. PAST SURGICAL HISTORY: Includes coronary artery bypass surgery. MEDICATIONS: Include: 1. Albuterol. 2. Vitamin C daily. 3. Aspirin. 4. Atorvastatin. 5. Dexamethasone. 6. Glipizide. 7. Metformin. 8. Metoprolol. 9. Flomax. 10. Trazodone. 11. Multivitamins. ALLERGIES: NONE KNOWN. FAMILY HISTORY: Noncontributory for this injury. SOCIAL HISTORY: He lives in a private residence in [place]. He drinks alcohol socially. He has a past history of cigarette smoking, which he discontinued nearly 20 years ago; however, he has a 40 pack-year history of smoking. Denies recreational drug use. REVIEW OF SYSTEMS: No recent fevers, chills, or sweats. He does have some residual cough felt to be secondary to his COVID infection in September. Denies recent fevers or chills. PHYSICAL EXAMINATION: VITAL SIGNS: He is found to have a temperature of 98.4, heart rate of 124, respiratory rate of 16, and blood pressure of 114/73. HEENT: Atraumatic and normocephalic. HEART: Shows a tachycardia, but without obvious murmur. CHEST: Clear to auscultation except for the occasional cough with deep inspiration. Chest wall is nontender. PELVIS: Stable and nontender to compression, but with manipulation of the pelvis, he does have some left groin pain. EXTREMITIES: Most remarkable for a left lower extremity with pain in the groin with any type of motion or log rolling of the thigh. The knee ankle and foot appear atraumatic. He is wiggling his toes and has intact subjective sensation. LABORATORY DATA: He was found to have a white count of 6.5, a hematocrit of 33.2, and 272,000 platelets. IMAGING STUDIES: X-rays; AP pelvis as well as 2-view of the left hip remarkable for a left femoral neck fracture with minimal displacement. 2-view x-ray of femur also obtained that shows no pathology within the shaft. ASSESSMENT: This is a 75-year-old gentleman status post ground level fall sustaining left femoral neck fracture with mild displacement. PLAN: At this time, I have discussed with the patient that he does have a femoral neck fracture. We have discussed treatment options including, but not limited to, percutaneous screw stabilization versus hemiarthroplasty. There is a stroke in the ER with the above. After discussion regarding recovery and risks of each of the procedures, we have decided to proceed with left hip hemiarthroplasty. Risks include, but are not limited to bleeding, infection, nerve injury, DVT, PE, dislocation, loss of limb or life. The patient appears to understand and does wish to proceed with hemiarthroplasty. Informed consent has been obtained and all questions answered. Job ID: [id number]
[2020-12-04] MEDS ORDERED: Polyethylene Glycol 3350 17 GM Packet PO SCH (09:00)
[2020-12-04] MEDS ORDERED: Famotidine 20 MG TAB PO SCH (09:00)
[2020-12-04] MEDS ORDERED: Magnesium 2 GM/50 ML 2 GM in Premix Bag 1 BAG IVPB SCH (09:30)
[2020-12-04] MEDS ORDERED: Famotidine/PF 20 mg/2ml Vial ONE (09:44)
[2020-12-04] MEDS ORDERED: Fentanyl 100 MCG/2 ML VIAL ONE (09:44)
[2020-12-04] MEDS ORDERED: Metoprolol Tartrate 5 MG/5 ML VIAL ONE (10:06)
[2020-12-04] MEDS ORDERED: Promethazine HCl 25 MG/ML VIAL SLOW IVP PRN (11:30)
[2020-12-04] MEDS ORDERED: Promethazine HCl 25 MG/ML VIAL IM PRN (11:30)
[2020-12-04] MEDS ORDERED: Ondansetron HCl/PF 4 MG/2 ML Vial IVP PRN (11:30)
[2020-12-04] MEDS ORDERED: PACU-Morphine 4MG/ML VIAL SLOW IVP PRN (11:30)
[2020-12-04] MEDS: Ascorbic Acid 500 mg Chewable Tablet PO SCH (12:14)
[2020-12-04] MEDS: Famotidine 20 MG TAB PO SCH ×3 (12:15→20:48)
[2020-12-04] MEDS: Multivitamin W/ Minerals 1 TAB PO SCH (12:22)
[2020-12-04] MEDS: Tamsulosin HCl 0.4 MG CAP PO SCH (12:23)
[2020-12-04] MEDS: Senokot S 8.6-50 MG TAB PO SCH ×2 (12:23→19:33)
--- NOTE | 2020-12-04 12:36 | RAD ---
Exam: Left hip one view: HISTORY: Postoperative total hip replacement COMPARISON: AP pelvis FINDINGS: Crosstable lateral view of the left hip demonstrates no dislocation or periprostatic fracture. Eviden ce for recent postop hip replacement. IMPRESSION: No significant acute process.
--- NOTE | 2020-12-04 13:09 | RAD ---
AP PELVIS: Date: 12/04/2020 HISTORY: Left hip fracture. FINDINGS/IMPRESSION: Interval postop changes of left hip arthroplasty are seen in good position and alignment since the pr evious day's exam. POS: JAIRO
[2020-12-04] MEDS ORDERED: Metoclopramide HCl 10 MG/2 ML VIAL ONE (15:09)
[2020-12-04] MEDS ORDERED: PHENYLEPHRINE-NS 100 MCG/ML 10 ML SYRINGE ONE (15:09)
[2020-12-04] MEDS ORDERED: Lidocaine 1% PF 5 ML VIAL ONE (15:09)
[2020-12-04] MEDS ORDERED: Rocuronium Bromide 10 MG/ML (10ML VIAL) ONE (15:09)
[2020-12-04] MEDS ORDERED: Glycopyrrolate 0.2 MG/ML 5 ML SYRINGE ONE (15:09)
[2020-12-04] MEDS ORDERED: Ondansetron PF 4 MG/2 ML Vial ONE (15:09)
[2020-12-04] MEDS ORDERED: PROPOFOL 200 MG/20 ML VIAL ONE (15:09)
[2020-12-04] MEDS ORDERED: Ketorolac Tromethamine 30 MG/ML VIAL ONE (15:09)
--- NOTE | 2020-12-04 15:10 | OP ---
DATE OF PROCEDURE: 12/04/2020 PREOPERATIVE DIAGNOSIS: Left femoral neck fracture, comminuted. POSTOPERATIVE DIAGNOSIS: Left femoral neck fracture, comminuted. PROCEDURE PERFORMED: Left hip hemiarthroplasty. ANESTHESIA: General. MARINA MANAGER: Alessandra Roberts PA-C ESTIMATED BLOOD LOSS: 200 mL. IMPLANTS: DePuy system was used with a size 5 Erath stem, a 28 x 56 bipolar cup, and a +5 femoral head with the addition of 1.7 mm cable for the calcar. COMPLICATIONS: None. DRAINS: None. SPECIMEN: None. OUTCOME: Satisfactory. INDICATIONS FOR PROCEDURE: The patient is a 75-year-old gentleman, status post ground level fall, in which he sustained a comminuted femoral neck fracture. After discussion with the patient including risks and benefits, we decided to proceed with a left hip hemiarthroplasty. Risks and benefits were discussed with the patient. I believe all questions have been answered. DESCRIPTION OF PROCEDURE: The patient was brought to the operating room and a time-out performed followed by induction of general anesthesia. Next, the patient was positioned in the right lateral decubitus position and a sterile prep and drape was performed of the left lower extremity. Next, a curvilinear incision was made centered over the tip of the greater trochanter. After skin was sharply incised, dissection was carried down bluntly to the underlying fascia charles and tensor fascia. This structure was incised in line with the skin incision and reflected anteriorly and posteriorly via my family readiness support assistant. Next, a Charnley retractor was placed in the wound providing further retraction. While my family readiness support assistant maintained internal rotation of the hip, the piriformis was identified and an elevator was passed under the piriformis and abductors protecting the structures while the superior and inferior gemelli were reflected off the posterior aspect of the femur, gaining access to the posterior capsule of the hip. While my family readiness support assistant maintained this internal rotation, a T-capsulotomy was performed with the edges of the capsule tagged for eventual repair. Next, a corkscrew device was used to remove the femoral head, which was sized to a size 56. The patient was found to have some comminution extending down into the level of the calcar distal to the femoral neck cut, which was made with an oscillating saw. Given this finding, a 1.7 mm Synthes cable was applied to the calcar region to further stabilize the bone and support the femoral component. Once positioned, it was not fully tightened. Attention was then placed at the proximal femur. This was prepared. Again, while my family readiness support assistant maintained full internal rotation, first with a box chisel followed by T-handle awls and then broaches, a size 5 broach gave excellent proximal fit and fill. As such, this final trial broach was left in place and then a reduction was performed with a +5 femoral neck bipolar cup. This provided what appeared to be clinically equal leg lengths. The hip was also found to be quite stable. The hip was then dislocated. The trial components were removed. 3 L of normal saline was irrigated down the canal of the femur while the implants were being prepared. Next, the femoral stem was introduced and fully seated. This was followed by insertion of the bipolar head to the stem. My family readiness support assistant then reduced the hip and while I palpated the bipolar head, she brought the leg into flexion at 90 degrees and then full internal rotation. There was found to be excellent stability of this device. As such, the device was left in place. The cable from the calcar region was then fully tensioned and crimped. The wound again irrigated and then wound closure performed. While my family readiness support assistant provided positioning of the hip, I reapproximated the capsule with #2 Vicryl. This was followed by #2 Vicryl for the fascia charles and tensor fascia. 0 Vicryl was used for Jazmín's fascia followed by 2-0 Vicryl and then chace for the skin. The Xeroform gauze and tape dressing were then applied to the hip, and the patient was transferred to recovery room in stable condition. There were no complications. He tolerated the procedure well. Job ID: [id number]
[2020-12-04] MEDS ORDERED: Calcium Carbonate 500 MG ChewTAB PO PRN (16:00)
[2020-12-04] MEDS ORDERED: traZODone HCl 50 MG TAB PO PRN (16:00)
[2020-12-04] MEDS ORDERED: Benzonatate 100 MG CAP PO PRN (16:00)
[2020-12-04 16:12] LABS: #Lymphocytes 0.6 thou/uL (1.20-3.40); #Monocytes 0.7 thou/uL (0.11-0.59); #Neutrophils 5.7 thou/uL (1.40-6.50); %Eosinophils 0.4 % (0.0-10.0); %Neutrophils 81.5 % (42.0-75.0); Hemoglobin 9.4 g/dL (14.0-18.0); Mean Corpuscular HGB CONC 32.9 g/dL (32.0-36.0); Mean Corpuscular Volume 94.2 fL (78.0-98.0); Mean Platelet Volume 6.6 fL (7.4-10.4); Platelet Count 246 thou/uL (130-400); RBC Distribution Width 13.8 % (11.5-14.5); Red Blood Cell (RBC) Count 3.01 mill/uL (4.70-6.10)
--- NOTE | 2020-12-04 16:17 | PRG ---
DATE OF SERVICE: 12/04/2020 The patient was admitted early this morning status post ground level fall in which he presented to the [facility]. He was subsequently transferred to our facility for repair of his femoral neck fracture. This morning, he underwent left hip hemiarthroplasty with Dr. Tanner, which he tolerated well. The patient returned to the surgical floor due to timing and his post anesthesia recovery. The patient is not able to work with therapy yet today. PHYSICAL EXAMINATION: VITAL SIGNS: Temperature 97.7, heart rate 123, blood pressure 104/65, respirations 18, oxygen saturation is 96% on room air. GENERAL: At the time of our visit, the patient just returned from surgery. He is sleepy. He would open his eyes to loud verbal stimuli, and reports that he was not having any pain and follow very simple commands. HEENT: Unremarkable. LUNGS: Clear to auscultation bilaterally. HEART: Tachycardic with a regular rhythm. ABDOMEN: Soft, nontender with hypoactive bowel sounds. EXTREMITIES: Neurovascularly intact x4. Postop dressing is clean, dry, and intact. We are awaiting postoperative labs. There are no radiographs reviewed this morning. ASSESSMENT/PLAN: 1. Status post ground level fall. 2. Status post left hip hemiarthroplasty for left subcapital hip fracture. 3. Chronic cough. 4. History of coronary artery disease, coronary artery bypass graft, valve replacement. 5. Deconditioning. 6. Coronavirus disease pneumonia recently. 7. Diabetes. 8. Hypertension. 9. Chronic obstructive pulmonary disease. Plan will be to continue supportive care, pain control, pulmonary toilet, gastritis and mechanical VTE prophylaxis and begin physical and occupational therapy. The patient was evaluated this morning with Dr. De La Rosa during rounds. Job ID: [id number]
[2020-12-04 16:31] LABS: Anion Gap 11 mmol/L (10-20); BUN (Urea Nitrogen) 7 mg/dL (8.4-25.7); Calc. Creatinine Clearance 104 mL/min (70-130); Calcium 8.4 mg/dL (7.8-10.44); Carbon Dioxide 25 mmol/L (23-31); Chloride 106 mmol/L (98-107); Glucose 216 mg/dL (83-110); Magnesium 2.4 mg/dL (1.6-2.6); Phosphorus 3.6 mg/dL (2.3-4.7); Potassium 3.9 mmol/L (3.5-5.1); Sodium 138 mmol/L (136-145)
[2020-12-04] MEDS ORDERED: metFORMIN 500 MG TAB PO SCH (17:00)
[2020-12-04] MEDS: CEFAZOLIN 2 GM in Premix Bag 1 BAG IVPB SCH (18:00)
[2020-12-04] MEDS: Atorvastatin Calcium 20 MG TAB PO SCH (19:33)
[2020-12-04] MEDS ORDERED: Non-Formulary Item 1 EACH (Budesonide/Formoterol Fumarate [Budesonide-Formoterol 160-4.5] IH SCH (21:00)
[2020-12-04] MEDS: Mometasone 100 MCG/Formoterol 5 MCG 120 PUFF INHALER INH SCH (22:47)
[2020-12-05] MEDS: Acetaminophen 500 MG TAB PO SCH ×5 (00:32→23:27)
[2020-12-05] MEDS: Ibuprofen 600 MG TAB PO PRN (01:07)
[2020-12-05] MEDS: CEFAZOLIN 2 GM in Premix Bag 1 BAG IVPB SCH ×2 (01:08→09:34)
[2020-12-05] MEDS ORDERED: Metoprolol Tartrate 25 MG TAB PO SCH (01:45)
[2020-12-05] MEDS: traMADol HCl 50 MG TAB PO SCH ×4 (05:36→23:28)
[2020-12-05] MEDS ORDERED: Hydrocortisone Sod Succ/PF 100 mg/2 ml Vial IVP SCH ×2 (05:45→06:00)
[2020-12-05] MEDS: Albuterol 200 PUFF (6.7GM INHALER) INH SCH ×3 (07:44→19:18)
[2020-12-05] MEDS: Mometasone 100 MCG/Formoterol 5 MCG 120 PUFF INHALER INH SCH ×2 (07:44→19:18)
[2020-12-05] MEDS: Ascorbic Acid 500 mg Chewable Tablet PO SCH (08:07)
[2020-12-05] MEDS: Polyethylene Glycol 3350 17 GM Packet PO SCH ×2 (08:07→08:08)
[2020-12-05] MEDS: Aspirin 325 mg Enteric Coated Tablet PO SCH (08:08)
[2020-12-05] MEDS: Tamsulosin HCl 0.4 MG CAP PO SCH (08:08)
[2020-12-05] MEDS: Senokot S 8.6-50 MG TAB PO SCH ×2 (08:08→20:16)
[2020-12-05] MEDS: Cholecalciferol 1,000 UNITS (25 MCG) TAB PO SCH (08:08)
[2020-12-05] MEDS: Famotidine 20 MG TAB PO SCH (08:08)
[2020-12-05] MEDS: Multivitamin W/ Minerals 1 TAB PO SCH (08:09)
[2020-12-05] MEDS: Zinc Sulfate 220 MG CAP PO SCH (08:09)
[2020-12-05] MEDS: Dexamethasone 4 MG TAB PO SCH (08:09)
[2020-12-05] MEDS ORDERED: Non-Formulary Item 1 EACH (Fluticasone/Vilanterol [Breo Ellipta 200-25 Mcg Inh] 1 EACH Bl IH SCH (09:00)
[2020-12-05 11:20] LABS: #Lymphocytes 0.3 thou/uL (1.20-3.40); #Monocytes 0.4 thou/uL (0.11-0.59); #Neutrophils 5.3 thou/uL (1.40-6.50); %Eosinophils 0.2 % (0.0-10.0); %Lymphocytes 5.3 % (21.0-51.0); %Monocytes 7.2 % (0.0-10.0); %Neutrophils 87.3 % (42.0-75.0); Mean Corpuscular Hemoglobin 32.4 pg (27.0-31.0); Mean Corpuscular Volume 95.5 fL (78.0-98.0); Mean Platelet Volume 6.9 fL (7.4-10.4); Platelet Count 238 thou/uL (130-400); RBC Distribution Width 13.8 % (11.5-14.5); Red Blood Cell (RBC) Count 2.78 mill/uL (4.70-6.10); White Blood Cell (WBC) Count 6.1 thou/uL (4.8-10.8)
[2020-12-05 11:43] LABS: Anion Gap 12 mmol/L (10-20); BUN (Urea Nitrogen) 11 mg/dL (8.4-25.7); Calc. Creatinine Clearance 88 mL/min (70-130); Calcium 8.4 mg/dL (7.8-10.44); Carbon Dioxide 25 mmol/L (23-31); Chloride 104 mmol/L (98-107); Glucose 307 mg/dL (83-110); Phosphorus 3.8 mg/dL (2.3-4.7); Potassium 4.7 mmol/L (3.5-5.1); Sodium 136 mmol/L (136-145)
[2020-12-05] MEDS: Insulin Regular 300 UNITS/3 ML VIAL SC PRN ×3 (11:49→20:21)
--- NOTE | 2020-12-05 16:05 | PRG ---
DATE OF SERVICE: 12/05/2020 SUBJECTIVE: The patient remains on the surgical floor. He is status post ground level fall, in which he sustained a left subcapital hip fracture, which he has undergone left hip hemiarthroplasty for. Last night, he had episodes of sustained sinus tachycardia, which was likely due to him not receiving his beta blockers for greater than 36 hours. Once beta blockers were resumed, the patient became rate controlled with heart rates in the 80s. The patient was noted to have some occasional hypotension. Cortisol level showed to be low consistent with acute adrenal insufficiency. The patient was started on hydrocortisone. The patient was able to work with Physical therapy this morning, was able to ambulate 5 feet initially and then his followup with them, he was able to ambulate 120 feet. PHYSICAL EXAMINATION: VITAL SIGNS: Temperature 97.2, heart rate 81, blood pressure 103/67, respirations 16, and oxygen saturation is 94% on 2 L via nasal cannula. GENERAL: The patient is resting comfortably in bed. He appears more comfortable today than yesterday. He reports that he is tolerating a diet. His pain is controlled. HEENT: Unremarkable. LUNGS: Clear to auscultation bilaterally. HEART: Regular rate and rhythm. ABDOMEN: Soft, nontender with active bowel sounds. EXTREMITIES: Neurovascularly intact x4. LABORATORY FINDINGS: White blood cell count 6.1, hemoglobin 9.4, hematocrit 26.5, platelets 238. Sodium 136, potassium 4.7, chloride 104, CO2 of 25, BUN 11, creatinine 0.85, glucose 307, magnesium 2.0, phosphorus 3.8. Cortisol 8.8. There are no radiographs reviewed this morning. ASSESSMENT: 1. Status post ground level fall. 2. Status post left hip hemiarthroplasty for left subcapital hip fracture. 3. History of coronary artery disease, coronary artery bypass graft, valve replacement, deconditioning, coronavirus pneumonia, recently with persistent cough. 4. History of diabetes, hypertension. PLAN: Plan will be to continue supportive care, encourage physical and occupational therapy, and await placement. The patient was evaluated with Dr. De La Rosa during rounds this morning. Job ID: [id number]
--- NOTE | 2020-12-05 18:30 | EKG ---
Test Reason : PREOP Blood Pressure : / mmHG Vent. Rate : 114 BPM Atrial Rate : 114 BPM P-R Int : 126 ms QRS Dur : 090 ms QT Int : 350 ms P-R-T Axes : 053 025 026 degrees QTc Int : 482 ms Sinus tachycardia Otherwise normal ECG When compared with ECG of 04-NOV-2020 22:25, No significant change was found Confirmed by GEE KRAFT, DR. Norman ([id number]) on 12/05/2020 6:30:10 PM Referred By: KENDRICK Confirmed By:DR. Emerson FLYNN MD
--- NOTE | 2020-12-05 18:32 | EKG ---
Test Reason : STAT Blood Pressure : / mmHG Vent. Rate : 135 BPM Atrial Rate : 135 BPM P-R Int : 096 ms QRS Dur : 084 ms QT Int : 312 ms P-R-T Axes : 021 032 000 degrees QTc Int : 468 ms Sinus tachycardia with short [place] Nonspecific ST abnormality Abnormal ECG When compared with ECG of 04-DEC-2020 09:54, (Unconfirmed) No significant change was found Confirmed by GEE KRAFT, DR. S. ([id number]) on 12/05/2020 6:31:41 PM Referred By: CLINT Confirmed By:DR. Emerson FLYNN MD
[2020-12-05] MEDS: Atorvastatin Calcium 20 MG TAB PO SCH (20:16)
[2020-12-06 05:48] LABS: #Lymphocytes 0.5 thou/uL (1.20-3.40); #Monocytes 0.7 thou/uL (0.11-0.59); #Neutrophils 5.4 thou/uL (1.40-6.50); %Basophils 0.1 % (0.0-1.0); %Eosinophils 0.3 % (0.0-10.0); %Lymphocytes 7.1 % (21.0-51.0); %Monocytes 10.3 % (0.0-10.0); %Neutrophils 82.2 % (42.0-75.0); Hemoglobin 8.4 g/dL (14.0-18.0); Mean Corpuscular HGB CONC 33.2 g/dL (32.0-36.0); Mean Corpuscular Hemoglobin 31.3 pg (27.0-31.0); Mean Corpuscular Volume 94.1 fL (78.0-98.0); Platelet Count 269 thou/uL (130-400); RBC Distribution Width 13.7 % (11.5-14.5); White Blood Cell (WBC) Count 6.6 thou/uL (4.8-10.8)
[2020-12-06] MEDS: traMADol HCl 50 MG TAB PO SCH ×3 (05:59→17:29)
[2020-12-06 06:02] LABS: Anion Gap 11 mmol/L (10-20); BUN (Urea Nitrogen) 11 mg/dL (8.4-25.7); Calc. Creatinine Clearance 115 mL/min (70-130); Calcium 8.8 mg/dL (7.8-10.44); Carbon Dioxide 28 mmol/L (23-31); Chloride 104 mmol/L (98-107); Glucose 171 mg/dL (83-110); Magnesium 2.1 mg/dL (1.6-2.6); Phosphorus 3.1 mg/dL (2.3-4.7); Sodium 139 mmol/L (136-145)
[2020-12-06] MEDS: Acetaminophen 500 MG TAB PO SCH ×3 (06:02→17:28)
[2020-12-06] MEDS: Insulin Regular 300 UNITS/3 ML VIAL SC PRN ×4 (06:05→20:58)
[2020-12-06] MEDS: Albuterol 200 PUFF (6.7GM INHALER) INH SCH ×3 (08:03→18:32)
[2020-12-06] MEDS: Mometasone 100 MCG/Formoterol 5 MCG 120 PUFF INHALER INH SCH ×2 (08:03→18:32)
[2020-12-06] MEDS: Enoxaparin Sodium 40 MG/0.4 ML SYRINGE SC SCH (08:29)
[2020-12-06] MEDS: Ascorbic Acid 500 mg Chewable Tablet PO SCH (08:29)
[2020-12-06] MEDS: Zinc Sulfate 220 MG CAP PO SCH (08:29)
[2020-12-06] MEDS: Aspirin 325 mg Enteric Coated Tablet PO SCH (08:30)
[2020-12-06] MEDS: Cholecalciferol 1,000 UNITS (25 MCG) TAB PO SCH (08:30)
[2020-12-06] MEDS: Tamsulosin HCl 0.4 MG CAP PO SCH (08:30)
[2020-12-06] MEDS: Dexamethasone 4 MG TAB PO SCH (08:30)
[2020-12-06] MEDS: Multivitamin W/ Minerals 1 TAB PO SCH (08:30)
[2020-12-06] MEDS: traMADol HCl 50 MG TAB PO PRN (08:31)
[2020-12-06] MEDS: Senokot S 8.6-50 MG TAB PO SCH ×2 (08:31→20:58)
[2020-12-06] MEDS: Atorvastatin Calcium 20 MG TAB PO SCH (20:58)
[2020-12-07] MEDS: traMADol HCl 50 MG TAB PO SCH ×5 (00:10→23:16)
[2020-12-07] MEDS: Acetaminophen 500 MG TAB PO SCH ×5 (00:38→23:15)
[2020-12-07] MEDS ORDERED: Lactated Ringer's 500 ML IV SCH (01:30)
[2020-12-07] MEDS: Insulin Regular 300 UNITS/3 ML VIAL SC PRN ×4 (05:39→22:30)
--- NOTE | 2020-12-07 06:36 | PRG ---
DATE OF SERVICE: 12/07/2020 Mr. Oconnell is a 75-year-old male, status post left hip repair. The patient's heart rate is better controlled after starting home medications. Patientmis aware of his surroundings. Blood pressure was 95/62. Total urine output today is 490 mL. Patient's urine output should be 42 mL an hour. The patient is currently making 20 mL an hour. We will give the patient LR bolus 500 mL. Dispo PT recommendation safe discharge to rehab. Job ID: [id number] MTDD
[2020-12-07] MEDS: Albuterol 200 PUFF (6.7GM INHALER) INH SCH ×3 (06:56→20:32)
[2020-12-07] MEDS: Mometasone 100 MCG/Formoterol 5 MCG 120 PUFF INHALER INH SCH ×2 (06:57→20:31)
[2020-12-07 07:49] LABS: #Lymphocytes 0.8 thou/uL (1.20-3.40); #Monocytes 0.6 thou/uL (0.11-0.59); #Neutrophils 6.7 thou/uL (1.40-6.50); %Eosinophils 0.6 % (0.0-10.0); %Lymphocytes 9.6 % (21.0-51.0); %Monocytes 7.5 % (0.0-10.0); %Neutrophils 82.3 % (42.0-75.0); Hemoglobin 9.6 g/dL (14.0-18.0); Mean Corpuscular HGB CONC 32.9 g/dL (32.0-36.0); Mean Corpuscular Hemoglobin 31.4 pg (27.0-31.0); Mean Corpuscular Volume 95.3 fL (78.0-98.0); Mean Platelet Volume 6.8 fL (7.4-10.4); Platelet Count 338 thou/uL (130-400); RBC Distribution Width 13.8 % (11.5-14.5); Red Blood Cell (RBC) Count 3.05 mill/uL (4.70-6.10); White Blood Cell (WBC) Count 8.1 thou/uL (4.8-10.8)
[2020-12-07 07:58] LABS: Anion Gap 14 mmol/L (10-20); BUN (Urea Nitrogen) 10 mg/dL (8.4-25.7); Calc. Creatinine Clearance 104 mL/min (70-130); Calcium 9.6 mg/dL (7.8-10.44); Carbon Dioxide 28 mmol/L (23-31); Chloride 101 mmol/L (98-107); Glucose 155 mg/dL (83-110); Magnesium 2.1 mg/dL (1.6-2.6); Phosphorus 3.5 mg/dL (2.3-4.7); Potassium 3.9 mmol/L (3.5-5.1); Sodium 139 mmol/L (136-145)
[2020-12-07] MEDS: Enoxaparin Sodium 40 MG/0.4 ML SYRINGE SC SCH (08:33)
[2020-12-07] MEDS: Polyethylene Glycol 3350 17 GM Packet PO SCH (08:34)
[2020-12-07] MEDS: Cholecalciferol 1,000 UNITS (25 MCG) TAB PO SCH (08:34)
[2020-12-07] MEDS: Aspirin 325 mg Enteric Coated Tablet PO SCH (08:35)
[2020-12-07] MEDS: Multivitamin W/ Minerals 1 TAB PO SCH (08:35)
[2020-12-07] MEDS: Dexamethasone 4 MG TAB PO SCH (08:35)
[2020-12-07] MEDS: Senokot S 8.6-50 MG TAB PO SCH ×2 (08:35→21:19)
[2020-12-07] MEDS: Ascorbic Acid 500 mg Chewable Tablet PO SCH (08:35)
[2020-12-07] MEDS: Tamsulosin HCl 0.4 MG CAP PO SCH (08:35)
[2020-12-07] MEDS: Zinc Sulfate 220 MG CAP PO SCH (08:35)
[2020-12-07] MEDS ORDERED: Metoprolol Tartrate 25 MG TAB PO SCH (11:00)
[2020-12-07] MEDS: traMADol HCl 50 MG TAB PO PRN (13:34)
[2020-12-07] MEDS: Ibuprofen 600 MG TAB PO PRN (13:34)
--- NOTE | 2020-12-07 19:53 | PRG ---
DATE OF SERVICE: 12/07/2020 SUBJECTIVE: The patient is hospital day 4, postop day 3, status post ground level fall when he sustained a left femoral neck fracture and underwent left hip hemiarthroplasty. The patient has tolerated his procedure well. He is tolerating the diet and his pain is controlled. The patient is participating with physical therapy and today was able to ambulate 80 feet with assistance. He has not made up his mind regarding placement yet. PHYSICAL EXAMINATION: VITAL SIGNS: Temperature is 98.4, heart rate 121, blood pressure 124/78, respirations 18, oxygen saturation 95% on room air. GENERAL: The patient is resting comfortably in bed. He is awake, alert, conversant, and appropriate. HEENT: Unremarkable. LUNGS: Clear to auscultation bilaterally. HEART: Regular rhythm with tachycardia. ABDOMEN: Soft, nontender with active bowel sounds. EXTREMITIES: Neurovascularly intact x4. LABORATORY FINDINGS: White blood cell count 8.1, hemoglobin 9.6, hematocrit 29.1, and platelets 338. Sodium 139, potassium 3.9, chloride 101, CO2 of 28, BUN 10, creatinine 0.72, glucose 155, magnesium 2.1, phosphorus 3.5. IMAGING STUDIES: There are no radiographs to review this morning. ASSESSMENT/PLAN: 1. Status post ground level fall. 2. Postop day 3, status post left hip hemiarthroplasty. 3. History of coronary artery disease. 4. Coronary artery bypass grafting. 5. Valve replacement. 6. Deconditioning. 7. Ching virus pneumonia recently with persisting cough. 8. History of diabetes and hypertension. Plan will be to continue supportive care. Encourage physical and occupational therapy. We have made adjustments to his beta briseida and we will continue to follow this. The patient was discussed with Dr. De La Rosa during rounds this morning. Job ID: [id number]
[2020-12-07] MEDS: Atorvastatin Calcium 20 MG TAB PO SCH (21:18)
[2020-12-07] MEDS: Metoprolol Tartrate 25 MG TAB PO SCH (21:18)
[2020-12-08] MEDS: traMADol HCl 50 MG TAB PO SCH ×4 (06:12→23:23)
[2020-12-08] MEDS: Acetaminophen 500 MG TAB PO SCH ×4 (06:12→23:24)
[2020-12-08] MEDS: Mometasone 100 MCG/Formoterol 5 MCG 120 PUFF INHALER INH SCH ×2 (07:28→20:07)
[2020-12-08] MEDS: Albuterol 200 PUFF (6.7GM INHALER) INH SCH ×3 (07:28→20:07)
[2020-12-08] MEDS: Aspirin 325 mg Enteric Coated Tablet PO SCH (08:39)
[2020-12-08] MEDS: Dexamethasone 4 MG TAB PO SCH (08:40)
[2020-12-08] MEDS: Tamsulosin HCl 0.4 MG CAP PO SCH (08:40)
[2020-12-08] MEDS: Zinc Sulfate 220 MG CAP PO SCH (08:42)
[2020-12-08] MEDS: Multivitamin W/ Minerals 1 TAB PO SCH (08:42)
[2020-12-08] MEDS: Cholecalciferol 1,000 UNITS (25 MCG) TAB PO SCH (08:43)
[2020-12-08] MEDS: Ascorbic Acid 500 mg Chewable Tablet PO SCH (08:45)
[2020-12-08] MEDS: Enoxaparin Sodium 40 MG/0.4 ML SYRINGE SC SCH (08:45)
[2020-12-08] MEDS: Senokot S 8.6-50 MG TAB PO SCH ×2 (08:45→20:05)
[2020-12-08] MEDS: Polyethylene Glycol 3350 17 GM Packet PO SCH (08:47)
[2020-12-08] MEDS: Metoprolol Tartrate 25 MG TAB PO SCH ×2 (08:56→19:42)
[2020-12-08] MEDS: Insulin Regular 300 UNITS/3 ML VIAL SC PRN ×2 (11:49→17:51)
[2020-12-08] MEDS: Atorvastatin Calcium 20 MG TAB PO SCH (19:53)
[2020-12-09] MEDS ORDERED: Ibuprofen 200 MG TAB PO PRN (00:52)
--- NOTE | 2020-12-09 01:08 | PRG ---
DATE OF SERVICE: 12/08/2020 SUBJECTIVE: The patient is a 75-year-old male, hospital day #5, status post left hip fracture from a ground-level fall. He underwent left hemiarthroplasty, tolerated procedure well. States the pain is generally minimal and working with PT and OT and is awaiting current placement. He is getting up to 2000 on his I's. OBJECTIVE: VITAL SIGNS: Temperature is 97.8, blood pressure is 113/71, respiratory rate is 16, and 93% on room air. Heart rate is 80 per minute. GENERAL: A 75-year-old male, sitting up, in no acute distress. RESPIRATORY: Equal rise and fall. No distress. CARDIOVASCULAR: Strong pulses. PSYCHIATRIC: Normal mood and affect. EXTREMITIES: Warm. Extremities, dressings in place. Moves extremities well. PSYCHIATRIC: Normal mood and affect. NEUROLOGIC: GCS of 15. LABORATORY DATA: There is no laboratory data to review aside from a glucose of 252. ASSESSMENT: 1. Status post ground-level fall. 2. Postop day #4 status post left hip hemiarthroplasty. 3. History of coronary artery disease. 4. General deconditioning. 5. History of Coronavirus in the remote past with a persistent cough. 6. History of diabetes and hypertension. 7. Hyperglycemia without evidence of diabetic ketoacidosis. PLAN: We will continue supportive care. Work with PT, OT, and awaiting placement. We will increase his daily insulin today and check a BMP in the morning. Job ID: [id number]
[2020-12-09] MEDS: traMADol HCl 50 MG TAB PO SCH ×3 (05:39→17:23)
[2020-12-09] MEDS: Acetaminophen 500 MG TAB PO SCH ×3 (05:40→17:24)
[2020-12-09 06:05] LABS: Anion Gap 13 mmol/L (10-20); BUN (Urea Nitrogen) 15 mg/dL (8.4-25.7); Calc. Creatinine Clearance 101 mL/min (70-130); Carbon Dioxide 26 mmol/L (23-31); Chloride 103 mmol/L (98-107); Glucose 149 mg/dL (83-110); Phosphorus 3.6 mg/dL (2.3-4.7); Potassium 3.8 mmol/L (3.5-5.1); Sodium 138 mmol/L (136-145)
[2020-12-09] MEDS: Mometasone 100 MCG/Formoterol 5 MCG 120 PUFF INHALER INH SCH ×2 (07:45→18:29)
[2020-12-09] MEDS: Albuterol 200 PUFF (6.7GM INHALER) INH SCH ×3 (07:45→18:29)
[2020-12-09] MEDS: Polyethylene Glycol 3350 17 GM Packet PO SCH ×2 (08:41→09:13)
[2020-12-09] MEDS: Aspirin 325 mg Enteric Coated Tablet PO SCH (08:42)
[2020-12-09] MEDS: Enoxaparin Sodium 40 MG/0.4 ML SYRINGE SC SCH (08:42)
[2020-12-09] MEDS: Dexamethasone 4 MG TAB PO SCH (08:42)
[2020-12-09] MEDS: Cholecalciferol 1,000 UNITS (25 MCG) TAB PO SCH (08:43)
[2020-12-09] MEDS: Tamsulosin HCl 0.4 MG CAP PO SCH (08:43)
[2020-12-09] MEDS: Multivitamin W/ Minerals 1 TAB PO SCH (08:43)
[2020-12-09] MEDS: Metoprolol Tartrate 25 MG TAB PO SCH ×2 (08:43→21:14)
[2020-12-09] MEDS: Senokot S 8.6-50 MG TAB PO SCH ×2 (08:44→21:13)
[2020-12-09] MEDS: Zinc Sulfate 220 MG CAP PO SCH (08:44)
[2020-12-09] MEDS: Ascorbic Acid 500 mg Chewable Tablet PO SCH (08:44)
--- NOTE | 2020-12-09 11:15 | PRG ---
DATE OF SERVICE: 12/09/2020 SUBJECTIVE: Roberto Carlos is a 75-year-old male, postop day 5 from a left hip hemiarthroplasty for fracture. He is ambulating distances greater than 100 feet. He is doing very well. He is comfortable at this point. He has no complaints of pain today. OBJECTIVE: VITAL SIGNS: Temperature 97.9, pulse 92, respiratory rate 18, and blood pressure 116/70. GENERAL: He is alert and oriented to person, place, time, and situation. Responsive and appropriate with examiner. SKIN: Incision is clean. No strikethrough. No malrotation or shortening. Just a little bit of ecchymosis. LABORATORY DATA: Hemoglobin and hematocrit 9.6 and 29.9. IMPRESSION: 1. A 75-year-old male, postop day 5, left hip hemiarthroplasty. 2. Mild asymptomatic anemia. 3. Chronic obstructive pulmonary disease and diabetes type 2. PLAN: Continue current care. Disposition per Trauma Team. Followup and wound care instructions will be placed on the chart. Job ID: [id number]
[2020-12-09] MEDS: HumaLOG 300 UNITS/3 ML VIAL SC PRN ×2 (12:42→17:22)
--- NOTE | 2020-12-09 15:12 | PRG ---
DATE OF SERVICE: 12/09/2020 SUBJECTIVE: Mr. Oconnell is hospital day #6, status post fall with left hip fracture, status post ORIF on 12/04, doing well. Pain is 4/10. He is walking at times, working on his IS, getting nearly 2000. The patient is just waiting on placement at this time. His glucose has improved. OBJECTIVE: VITAL SIGNS: Temperature is 97.7, blood pressure 129/78, heart rate is 100, breathing 16 times per minute, 93% on room air. GENERAL: A 75-year-old male, sitting up, in no acute distress. RESPIRATORY: Equal rise and fall. Does have a cough noted. No acute distress. NEURO: Alert and oriented to person, place, time, and event. EXTREMITIES: Moves all extremities well. PSYCH: Normal mood and affect. SKIN: Warm and dry. LABORATORY DATA: His sodium is 138, potassium 3.8, chloride is 103, CO2 is 26, BUN 15, creatinine 0.74, glucose 149, phos is 3.6, and a magnesium of 2.0. ASSESSMENT AND PLAN: 1. Ground level fall. 2. Acute traumatic pain. 3. Left hip fracture, status post open reduction and internal fixation. 4. History of coronary artery disease. 5. History of chronic obstructive pulmonary disease. No acute exacerbation. PLAN: 1. Continue aggressive pulmonary toilet. 2. Continue insulin at the increased dose as of yesterday as we seem to be improving. 3. Continue working with PT/OT and awaiting placement. Job ID: [id number]
[2020-12-09] MEDS: Atorvastatin Calcium 20 MG TAB PO SCH (21:14)
[2020-12-10] MEDS: Acetaminophen 500 MG TAB PO SCH ×5 (00:34→23:58)
[2020-12-10] MEDS: traMADol HCl 50 MG TAB PO SCH ×5 (00:34→23:57)
[2020-12-10] MEDS: Albuterol 200 PUFF (6.7GM INHALER) INH SCH ×3 (08:01→19:24)
[2020-12-10] MEDS: Mometasone 100 MCG/Formoterol 5 MCG 120 PUFF INHALER INH SCH ×2 (08:01→19:24)
[2020-12-10] MEDS: Enoxaparin Sodium 40 MG/0.4 ML SYRINGE SC SCH (08:34)
[2020-12-10] MEDS: Aspirin 325 mg Enteric Coated Tablet PO SCH (08:35)
[2020-12-10] MEDS: Senokot S 8.6-50 MG TAB PO SCH ×2 (08:35→20:48)
[2020-12-10] MEDS: Polyethylene Glycol 3350 17 GM Packet PO SCH (08:35)
[2020-12-10] MEDS: Tamsulosin HCl 0.4 MG CAP PO SCH (08:36)
[2020-12-10] MEDS: Zinc Sulfate 220 MG CAP PO SCH (08:36)
[2020-12-10] MEDS: Ascorbic Acid 500 mg Chewable Tablet PO SCH (08:36)
[2020-12-10] MEDS: Multivitamin W/ Minerals 1 TAB PO SCH (08:37)
[2020-12-10] MEDS: Metoprolol Tartrate 25 MG TAB PO SCH ×2 (08:37→21:32)
[2020-12-10] MEDS: Cholecalciferol 1,000 UNITS (25 MCG) TAB PO SCH (08:38)
[2020-12-10] MEDS: Dexamethasone 4 MG TAB PO SCH (08:40)
--- NOTE | 2020-12-10 18:36 | PRG ---
DATE OF SERVICE: 12/10/2020 SUBJECTIVE: Mr. Oconnell is a 75-year-old male, recovering well on the surgical floor. The patient is postop day 6 from a fall with left hip fracture, ORIF in 2016. Pain is well controlled. The patient is running aggressively with PT. The patient's pain is well controlled. The patient has tolerated regular diet and having bowel movements every other day. OBJECTIVE: VITAL SIGNS: Temperature 98, respiratory rate 20, pulse 88, O2 saturation 93% on room air, and blood pressure is 107/69. GENERAL: Sitting up in bed, in no acute distress. Waiting for placement. RESPIRATORY: Breathing. Speaking in full sentences. No accessory muscle use. NEUROLOGIC: Alert and oriented. Cranial nerves 2 through 12 intact. EXTREMITIES: Moving all extremities. Left hip pain with motion, which is expected after surgery. LABORATORY DATA: No new labs. DIAGNOSTIC STUDIES: Today's imaging, no new imaging. ASSESSMENT: 1. Ground level fall. 2. Acute traumatic pain. 3. Left hip fracture, status postop open reduction and internal fixation. 4. History of coronary artery disease. 5. Chronic obstructive pulmonary disease. No acute exacerbations. PLAN: 1. Continue PT, OT. 2. Adjust pain regimens. 3. We will add lactulose to bowel regimen. Discussed Case Management with placement. Patient was examined with and he agrees with the assessment and plan. Job ID: [id number] MTDD
[2020-12-10] MEDS: Atorvastatin Calcium 20 MG TAB PO SCH (20:49)
[2020-12-11] MEDS: traMADol HCl 50 MG TAB PO SCH ×2 (06:19→11:48)
[2020-12-11] MEDS: Acetaminophen 500 MG TAB PO SCH ×2 (06:19→11:47)
[2020-12-11] MEDS: Mometasone 100 MCG/Formoterol 5 MCG 120 PUFF INHALER INH SCH (07:35)
[2020-12-11] MEDS: Albuterol 200 PUFF (6.7GM INHALER) INH SCH ×2 (07:35→14:10)
[2020-12-11] MEDS: Metoprolol Tartrate 25 MG TAB PO SCH (09:56)
[2020-12-11] MEDS: Aspirin 325 mg Enteric Coated Tablet PO SCH (09:56)
[2020-12-11] MEDS: Multivitamin W/ Minerals 1 TAB PO SCH (09:56)
[2020-12-11] MEDS: Dexamethasone 4 MG TAB PO SCH (09:57)
[2020-12-11] MEDS: Ascorbic Acid 500 mg Chewable Tablet PO SCH (09:57)
[2020-12-11] MEDS: Zinc Sulfate 220 MG CAP PO SCH (09:57)
[2020-12-11] MEDS: Cholecalciferol 1,000 UNITS (25 MCG) TAB PO SCH (09:57)
[2020-12-11] MEDS: Tamsulosin HCl 0.4 MG CAP PO SCH (09:58)
[2020-12-11] MEDS: Polyethylene Glycol 3350 17 GM Packet PO SCH (09:58)
[2020-12-11] MEDS: Senokot S 8.6-50 MG TAB PO SCH (09:58)
[2020-12-11] MEDS: Enoxaparin Sodium 40 MG/0.4 ML SYRINGE SC SCH (09:58)
[2020-12-11 14:02] LABS: SARS-CoV-2 NAA Rapid Test Not Detected (NotDetected)
[2020-12-11 17:30] VITALS: BP 109/69; TEMP 98.2
--- NOTE | 2020-12-12 09:26 | DIS ---
DATE OF ADMISSION: 12/03/2020 DATE OF DISCHARGE: 12/11/2020 ADMITTING DIAGNOSIS: Left femoral neck fracture, comminuted. PROCEDURE PERFORMED: Left hip hemiarthroplasty. IMAGING: Left femoral neck fracture, comminuted. HOSPITAL COURSE: Mr. Oconnell is a 75-year-old male patient, who presented to [place] [facility] after a mechanical fall at home. The patient reported left hip pain. The patient was transferred over to [facility] for orthopedic intervention. The patient was brought to the OR on 12/04 for left hip hemiarthroplasty. The patient recovered well from the procedure. After the procedure, the patient was restarted on all of his home medications, GI prophylaxis and DVT prophylaxis. The following days, the patient worked aggressively with PT and OT. Case Management [facility]. The patient is going to be transferred to [facility] today for rehab. The patient was instructed to follow up with Dr. Tanner in 2 to 3 weeks. The patient was given number to call Dr. Tanner' office. Orthopedic team placed follow up and wound care instructions in the patient's chart. The patient has done very well in the hospital and will benefit from acute stay in rehab. VITAL SIGNS: Temperature 98, pulse 88, respiratory rate 16, O2 of 95, blood pressure 103/67. LABORATORY DATA: At time of discharge, no new labs done. IMAGING STUDIES: At time of discharge, x-ray shows left hip fracture. PHYSICAL EXAMINATION: GENERAL: The patient is sitting up eating breakfast this morning at bedside in his chair. CARDIAC: Regular rate and rhythm. PULMONARY: Clear lungs bilaterally. No accessory muscle use. Speaking full sentences. EXTREMITIES: The patient moving all extremities. Sensation intact bilaterally. ASSESSMENT: Comminuted left femoral neck fracture. PLAN: Follow up with Dr. Tanner in 2 to 3 weeks. Follow Orthopedic's wound care instructions in patient's sign-off sheet. Discharged to [facility]. Resume home medications. Job ID: [id number] MTDD
== END 2020-12-11 18:15 | DRG 522 ==
LOC: SURG A 20:30
PROVIDERS: ADMIT Surgery; ATTEND Surgery
PROC: 0SRS0JZ Replacement of Left Hip Joint, Femoral Surface with Synthetic Substitute, Open Approach (ICD-10-PCS; principal; 2020-12-04)
DX: S72.012A Unspecified intracapsular fracture of left femur, initial encounter for closed fracture (principal); Z20.822 Contact with and (suspected) exposure to COVID-19; W19.XXXA Unspecified fall, initial encounter; I25.10 Atherosclerotic heart disease of native coronary artery without angina pectoris; I10 Essential (primary) hypertension; J44.9 Chronic obstructive pulmonary disease, unspecified; K21.9 Gastro-esophageal reflux disease without esophagitis; E11.65 Type 2 diabetes mellitus with hyperglycemia; I95.9 Hypotension, unspecified; Z95.1 Presence of aortocoronary bypass graft; Z95.2 Presence of prosthetic heart valve; Z87.891 Personal history of nicotine dependence; Z79.51 Long term (current) use of inhaled steroids; Z79.82 Long term (current) use of aspirin; Z79.84 Long term (current) use of oral hypoglycemic drugs; Z79.899 Other long term (current) drug therapy; D64.9 Anemia, unspecified; E78.5 Hyperlipidemia, unspecified
CPT/HCPCS: 36415; 36416; 70450; 72125; 72170; 80048; 80053; 82533; 83735; 84100; 84484; 85025; 93005; 93010; 96374; C1776; J0690; J1650; J1720; J1815; J1885; J2270; J2405; J2704; J2765; J3010; J3475; J8540; S0028; U0002

== ENCOUNTER 2021-02-07 08:17 | Outpatient (CLI) | payer MEDICARE | END 2021-02-07 08:18 | disposition home or self-care (01) | LOC: NM 08:17 | PROVIDERS: ATTEND Nurse Practitioner Acute Care | DX: R25.9 Unspecified abnormal involuntary movements (principal); G20 Parkinson's disease; F02.80 Dementia in other diseases classified elsewhere, unspecified severity, without behavioral disturbance, psychotic disturbance, mood disturbance, and anxiety; G13.8 Systemic atrophy primarily affecting central nervous system in other diseases classified elsewhere; G23.1 Progressive supranuclear ophthalmoplegia [Steele-Richardson-Olszewski] | CPT/HCPCS: 78803; A9584 ==

== ENCOUNTER 2021-08-16 05:51 | Inpatient (IN) | payer MEDICARE ==
[2021-08-16] MEDS ORDERED: Acetaminophen 500 MG TAB ONE (06:06)
[2021-08-16 06:36] LABS: #Lymphocytes 0.4 thou/uL (1.20-3.40); #Monocytes 0.6 thou/uL (0.11-0.59); #Neutrophils 11.8 thou/uL (1.40-6.50); %Eosinophils 0.2 % (0.0-10.0); %Monocytes 4.9 % (0.0-10.0); %Neutrophils 91.9 % (42.0-75.0); Hemoglobin 14.4 g/dL (14.0-18.0); Mean Corpuscular HGB CONC 32.9 g/dL (32.0-36.0); Mean Corpuscular Hemoglobin 30.9 pg (27.0-31.0); Mean Corpuscular Volume 93.7 fL (78.0-98.0); Mean Platelet Volume 7.3 fL (7.4-10.4); Platelet Count 253 thou/uL (130-400); RBC Distribution Width 12.6 % (11.5-14.5); Red Blood Cell (RBC) Count 4.65 mill/uL (4.70-6.10); White Blood Cell (WBC) Count 12.8 thou/uL (4.8-10.8)
[2021-08-16] MEDS ORDERED: cefTRIAXone\\ROCEPHIN 2 GM VIAL ONE (06:44)
[2021-08-16 07:00] LABS: ALT (SGPT) 25 U/L (8-55); AST (SGOT) 16 U/L (5-34); Albumin 4.1 g/dL (3.4-4.8); Alkaline Phosphatase 183 U/L (40-110); Anion Gap 18 mmol/L (10-20); BUN (Urea Nitrogen) 16 mg/dL (8.4-25.7); Bilirubin, Total 0.9 mg/dL (0.2-1.2); CK (CPK) 80 U/L (30-200); Calc. Creatinine Clearance 0 mL/min (70-130); Calcium 9.5 mg/dL (7.8-10.44); Carbon Dioxide 23 mmol/L (23-31); Chloride 103 mmol/L (98-107); Globulin 2.5 g/dL (2.4-3.5); Glucose 324 mg/dL (83-110); Potassium 4.2 mmol/L (3.5-5.1); Protein, Total 6.6 g/dL (5.8-8.1); Sodium 140 mmol/L (136-145)
[2021-08-16] MEDS ORDERED: Metoprolol Tartrate 5 MG/5 ML VIAL ONE (07:08)
[2021-08-16] MEDS ORDERED: Vancomycin 1 GM/200 ML BAG ONE (07:12)
[2021-08-16 07:34] LABS: SARS-CoV-2 NAA Rapid Test Not Detected (NotDetected)
[2021-08-16 08:41] LABS: Bilirubin Negative (Negative); Blood, Urine Negative (Negative); Clarity Clear (Clear); Glucose, Urine (Dipstick) Greater than 1000 mg/dL (Negative); Ketone, Urine 60 mg/dL (Negative); Leukocyte Negative Leu/uL (Negative); Nitrite Negative (Negative); Protein, Urine (Dipstick) Negative (Neg-Trace); Specific Gravity, Urine 1.032 (1.002-1.036); Urobilinogen Normal mg/dL (Less than 2); pH, Urine 5.5 (5.0-9.0)
[2021-08-16 10:24] LABS: Lactic Acid 1.4 mmol/L (0.5-2.2)
[2021-08-16] MEDS ORDERED: Ondansetron ODT 4 MG TAB PO PRN (10:25)
[2021-08-16] MEDS ORDERED: Ondansetron PF 4 MG/2 ML Vial IVP PRN (10:25)
[2021-08-16] MEDS ORDERED: Dextrose 5% in Water 1,000 ML IV PRN ×2 (10:25→21:55)
[2021-08-16] MEDS ORDERED: Promethazine HCl 25 MG/ML VIAL IM PRN (10:25)
[2021-08-16] MEDS ORDERED: traMADol HCl 50 MG TAB PO PRN ×2 (10:25)
[2021-08-16] MEDS ORDERED: Cyclobenzaprine 10 MG TAB PO PRN (10:25)
[2021-08-16] MEDS ORDERED: Melatonin 3 MG TAB PO PRN (10:25)
[2021-08-16] MEDS ORDERED: Dextrose 50% Abboject 50 ML SYRINGE SLOW IVP PRN ×2 (10:25→21:55)
[2021-08-16] MEDS ORDERED: Morphine 2 MG/ML VIAL SLOW IVP PRN (10:25)
[2021-08-16] MEDS ORDERED: Ibuprofen 200 MG TAB PO PRN (10:49)
[2021-08-16] MEDS ORDERED: Metoprolol Tartrate 25 MG TAB PO SCH (12:30)
[2021-08-16] MEDS: Acetaminophen 500 MG TAB PO SCH ×2 (13:18→17:51)
[2021-08-16] MEDS: Sodium Chloride 0.9% 1,000 ML IV SCH ×3 (13:19→22:32)
[2021-08-16 14:23] VITALS: BMI 23.6
[2021-08-16] MEDS ORDERED: FLU VACC QS2021-22(65YR UP)/PF 240 MCG/0.7 ML SYRINGE IM ONE (15:00)
[2021-08-16] MEDS: Carbidopa/Levodopa 25-100 mg Tablet PO SCH ×2 (15:01→21:11)
[2021-08-16] MEDS ORDERED: HumaLOG 300 UNITS/3 ML VIAL SC PRN ×2 (18:44)
[2021-08-16] MEDS: Metoprolol Tartrate 25 MG TAB PO SCH (21:11)
[2021-08-16] MEDS: Atorvastatin Calcium 20 MG TAB PO SCH (21:11)
[2021-08-16] MEDS: HumaLOG 300 UNITS/3 ML VIAL SC PRN (23:07)
[2021-08-17] MEDS: Acetaminophen 500 MG TAB PO SCH ×4 (00:59→17:34)
[2021-08-17 04:40] LABS: #Eosinphils 0.4 thou/uL (0.0-0.7); #Lymphocytes 0.7 thou/uL (1.20-3.40); #Monocytes 0.6 thou/uL (0.11-0.59); #Neutrophils 7.9 thou/uL (1.40-6.50); %Basophils 0.4 % (0.0-1.0); %Eosinophils 3.7 % (0.0-10.0); %Lymphocytes 7.6 % (21.0-51.0); %Monocytes 6.7 % (0.0-10.0); %Neutrophils 81.8 % (42.0-75.0); Hemoglobin 12.2 g/dL (14.0-18.0); Mean Corpuscular HGB CONC 33.8 g/dL (32.0-36.0); Mean Corpuscular Hemoglobin 31.7 pg (27.0-31.0); Mean Platelet Volume 7.3 fL (7.4-10.4); Platelet Count 225 thou/uL (130-400); RBC Distribution Width 12.6 % (11.5-14.5); Red Blood Cell (RBC) Count 3.84 mill/uL (4.70-6.10); White Blood Cell (WBC) Count 9.7 thou/uL (4.8-10.8)
[2021-08-17 04:59] LABS: Anion Gap 12 mmol/L (10-20); BUN (Urea Nitrogen) 13 mg/dL (8.4-25.7); Calc. Creatinine Clearance 78 mL/min (70-130); Carbon Dioxide 26 mmol/L (23-31); Chloride 105 mmol/L (98-107); Glucose 282 mg/dL (83-110); Potassium 3.9 mmol/L (3.5-5.1); Sodium 139 mmol/L (136-145)
[2021-08-17] MEDS: Carbidopa/Levodopa 25-100 mg Tablet PO SCH ×3 (07:31→20:52)
[2021-08-17] MEDS: cefTRIAXone\\ROCEPHIN 1 GM in Sodium Chloride 0.9% 100 ML IVPB SCH (07:31)
[2021-08-17] MEDS: Metoprolol Tartrate 25 MG TAB PO SCH ×2 (07:31→20:57)
[2021-08-17] MEDS ORDERED: ceFAZolin Sodium/D5W 2 GM in Premix Bag 1 BAG IVPB SCH (08:00)
[2021-08-17 09:56] LABS: Magnesium 1.8 mg/dL (1.6-2.6); Phosphorus 2.9 mg/dL (2.3-4.7)
[2021-08-17] MEDS ORDERED: Lidocaine 1% PF 5 ML VIAL ONE (11:32)
[2021-08-17] MEDS ORDERED: Rocuronium Bromide 10 MG/ML (10ML VIAL) ONE (11:32)
[2021-08-17] MEDS ORDERED: PROPOFOL 200 MG/20 ML VIAL ONE (11:32)
[2021-08-17] MEDS ORDERED: Glycopyrrolate 0.2 MG/ML 5 ML SYRINGE ONE (11:32)
[2021-08-17] MEDS ORDERED: ceFAZolin 2 GM/DEX 5% 100 ML BAG ONE (11:37)
[2021-08-17] MEDS ORDERED: Phenylephrine 10 MG/ML VIAL ONE (12:24)
[2021-08-17] MEDS ORDERED: Fentanyl 100 MCG/2 ML VIAL ONE (12:24)
[2021-08-17] MEDS ORDERED: Promethazine HCl 25 MG/ML VIAL IM PRN (13:52)
[2021-08-17] MEDS ORDERED: Promethazine HCl 25 MG/ML VIAL IVPB PRN (13:52)
[2021-08-17] MEDS ORDERED: Ondansetron HCl/PF 4 MG/2 ML Vial IVP PRN (13:52)
[2021-08-17] MEDS: Tamsulosin HCl 0.4 MG CAP PO SCH (16:21)
[2021-08-17] MEDS: HumaLOG 300 UNITS/3 ML VIAL SC PRN ×2 (17:35→22:02)
[2021-08-17] MEDS: Atorvastatin Calcium 20 MG TAB PO SCH (20:51)
[2021-08-17] MEDS: Melatonin 3 MG TAB PO SCH (20:53)
[2021-08-18] MEDS: Acetaminophen 500 MG TAB PO SCH ×4 (00:53→15:40)
[2021-08-18 05:13] LABS: #Eosinphils 0.3 thou/uL (0.0-0.7); #Lymphocytes 0.6 thou/uL (1.20-3.40); #Monocytes 0.6 thou/uL (0.11-0.59); #Neutrophils 6.5 thou/uL (1.40-6.50); %Basophils 0.2 % (0.0-1.0); %Eosinophils 3.6 % (0.0-10.0); %Lymphocytes 7.6 % (21.0-51.0); %Monocytes 7.5 % (0.0-10.0); %Neutrophils 81.1 % (42.0-75.0); Hemoglobin 11.3 g/dL (14.0-18.0); Mean Corpuscular Volume 94.3 fL (78.0-98.0); Mean Platelet Volume 7.6 fL (7.4-10.4); Platelet Count 228 thou/uL (130-400); RBC Distribution Width 12.5 % (11.5-14.5); Red Blood Cell (RBC) Count 3.52 mill/uL (4.70-6.10)
[2021-08-18 06:01] LABS: Anion Gap 16 mmol/L (10-20); BUN (Urea Nitrogen) 17 mg/dL (8.4-25.7); Calc. Creatinine Clearance 82 mL/min (70-130); Calcium 9.1 mg/dL (7.8-10.44); Carbon Dioxide 21 mmol/L (23-31); Chloride 103 mmol/L (98-107); Glucose 265 mg/dL (83-110); Magnesium 1.8 mg/dL (1.6-2.6); Phosphorus 3.6 mg/dL (2.3-4.7); Potassium 4.2 mmol/L (3.5-5.1); Sodium 136 mmol/L (136-145)
[2021-08-18] MEDS: HumaLOG 300 UNITS/3 ML VIAL SC PRN ×4 (06:34→22:02)
[2021-08-18] MEDS ORDERED: Magnesium Sulfate 3 GM in Sodium Chloride 0.9% 100 ML IV SCH (07:45)
[2021-08-18] MEDS ORDERED: traMADol HCl 50 MG TAB PO PRN (08:37)
[2021-08-18] MEDS: cefTRIAXone\\ROCEPHIN 1 GM in Sodium Chloride 0.9% 100 ML IVPB SCH (08:46)
[2021-08-18] MEDS: Metoprolol Tartrate 25 MG TAB PO SCH ×2 (08:46→21:51)
[2021-08-18] MEDS: metFORMIN 500 MG TAB PO SCH ×2 (08:46→16:39)
[2021-08-18] MEDS: Aspirin 325 mg Enteric Coated Tablet PO SCH ×2 (08:46→21:51)
[2021-08-18] MEDS: Tamsulosin HCl 0.4 MG CAP PO SCH (08:46)
[2021-08-18] MEDS: Carbidopa/Levodopa 25-100 mg Tablet PO SCH ×3 (08:46→21:51)
[2021-08-18] MEDS: traMADol HCl 50 MG TAB PO SCH ×2 (14:51→21:51)
[2021-08-18] MEDS: Atorvastatin Calcium 20 MG TAB PO SCH (21:51)
[2021-08-18] MEDS: Melatonin 3 MG TAB PO SCH (21:51)
[2021-08-18] MEDS: Lantus 1000 UNITS/10 ML VIAL SC SCH (22:01)
[2021-08-19] MEDS: Acetaminophen 500 MG TAB PO SCH ×4 (00:10→18:21)
[2021-08-19] MEDS: traMADol HCl 50 MG TAB PO SCH ×4 (03:56→20:54)
[2021-08-19] MEDS: cefTRIAXone\\ROCEPHIN 1 GM in Sodium Chloride 0.9% 100 ML IVPB SCH (05:48)
[2021-08-19] MEDS: HumaLOG 300 UNITS/3 ML VIAL SC PRN ×3 (05:53→18:25)
[2021-08-19 06:16] LABS: #Eosinphils 0.5 thou/uL (0.0-0.7); #Lymphocytes 0.6 thou/uL (1.20-3.40); #Monocytes 0.6 thou/uL (0.11-0.59); #Neutrophils 4.8 thou/uL (1.40-6.50); %Basophils 0.4 % (0.0-1.0); %Eosinophils 8.2 % (0.0-10.0); %Lymphocytes 9.5 % (21.0-51.0); %Monocytes 8.9 % (0.0-10.0); %Neutrophils 73.1 % (42.0-75.0); Hemoglobin 10.4 g/dL (14.0-18.0); Mean Corpuscular HGB CONC 34.1 g/dL (32.0-36.0); Mean Corpuscular Hemoglobin 31.9 pg (27.0-31.0); Mean Corpuscular Volume 93.6 fL (78.0-98.0); Mean Platelet Volume 7.3 fL (7.4-10.4); Platelet Count 226 thou/uL (130-400); RBC Distribution Width 12.6 % (11.5-14.5); Red Blood Cell (RBC) Count 3.26 mill/uL (4.70-6.10); White Blood Cell (WBC) Count 6.5 thou/uL (4.8-10.8)
[2021-08-19] MEDS: Aspirin 325 mg Enteric Coated Tablet PO SCH ×2 (09:50→20:53)
[2021-08-19] MEDS: Tamsulosin HCl 0.4 MG CAP PO SCH (09:50)
[2021-08-19] MEDS: Carbidopa/Levodopa 25-100 mg Tablet PO SCH ×3 (09:50→20:53)
[2021-08-19] MEDS: metFORMIN 500 MG TAB PO SCH ×2 (09:50→18:22)
[2021-08-19] MEDS: Metoprolol Tartrate 25 MG TAB PO SCH ×2 (10:00→20:53)
[2021-08-19] MEDS: Gabapentin 100 MG CAP PO SCH ×2 (15:40→20:53)
[2021-08-19 19:51] VITALS: BP 104/67; TEMP 98.2
[2021-08-19] MEDS: Melatonin 3 MG TAB PO SCH (20:53)
[2021-08-19] MEDS: Atorvastatin Calcium 20 MG TAB PO SCH (20:53)
[2021-08-19] MEDS: Lantus 1000 UNITS/10 ML VIAL SC SCH (21:07)
== END 2021-08-19 22:45 | DRG 521 ==
LOC: ERS 05:51 → 2NO 10:25 → SURG A 08-18 13:10
PROVIDERS: ADMIT Surgery; ATTEND Surgery
PROC: 0SRR0JZ Replacement of Right Hip Joint, Femoral Surface with Synthetic Substitute, Open Approach (ICD-10-PCS; principal; 2021-08-17)
DX: S72.001A Fracture of unspecified part of neck of right femur, initial encounter for closed fracture (principal); J18.9 Pneumonia, unspecified organism; A41.9 Sepsis, unspecified organism; J44.0 Chronic obstructive pulmonary disease with (acute) lower respiratory infection; Z20.822 Contact with and (suspected) exposure to COVID-19; G20 Parkinson's disease; I25.10 Atherosclerotic heart disease of native coronary artery without angina pectoris; I10 Essential (primary) hypertension; K21.9 Gastro-esophageal reflux disease without esophagitis; E11.9 Type 2 diabetes mellitus without complications; W18.30XA Fall on same level, unspecified, initial encounter; Z96.642 Presence of left artificial hip joint; F17.210 Nicotine dependence, cigarettes, uncomplicated; E83.42 Hypomagnesemia; Z95.1 Presence of aortocoronary bypass graft; Z79.899 Other long term (current) drug therapy; Z79.84 Long term (current) use of oral hypoglycemic drugs; Z79.82 Long term (current) use of aspirin
CPT/HCPCS: 0240U; 36415; 36416; 70450; 71045; 72125; 72170; 72192; 80048; 80053; 81003; 82550; 83605; 83735; 83880; 84100; 84484; 85025; 87040; 90471; 90662; 93005; 94640; C1776; G0008; G0390; J0696; J1815; J2370; J2704; J3010; J3370; J3475; J3490; J7050; J7620

== ENCOUNTER 2022-03-23 11:10 | Emergency (ER) | payer MEDICARE ==
[2022-03-23 11:44] LABS: #Lymphocytes 0.7 thou/uL (1.20-3.40); #Monocytes 0.6 thou/uL (0.11-0.59); #Neutrophils 10.8 thou/uL (1.40-6.50); %Basophils 0.1 % (0.0-1.0); %Eosinophils 0.2 % (0.0-10.0); %Lymphocytes 5.9 % (21.0-51.0); %Monocytes 5.3 % (0.0-10.0); %Neutrophils 88.4 % (42.0-75.0); Hemoglobin 13.6 g/dL (14.0-18.0); Mean Corpuscular Hemoglobin 31.9 pg (27.0-31.0); Mean Corpuscular Volume 93.8 fL (78.0-98.0); Platelet Count 208 thou/uL (130-400); RBC Distribution Width 12.5 % (11.5-14.5); Red Blood Cell (RBC) Count 4.26 mill/uL (4.70-6.10); White Blood Cell (WBC) Count 12.2 thou/uL (4.8-10.8)
[2022-03-23 12:04] LABS: ALT (SGPT) Less than 7 U/L (8-55); AST (SGOT) 19 U/L (5-34); Albumin 4.6 g/dL (3.4-4.8); Alkaline Phosphatase 97 U/L (40-110); Anion Gap 17 mmol/L (10-20); BUN (Urea Nitrogen) 18 mg/dL (8.4-25.7); Bilirubin, Total 0.7 mg/dL (0.2-1.2); Calc. Creatinine Clearance 0 mL/min (70-130); Calcium 9.7 mg/dL (7.8-10.44); Carbon Dioxide 24 mmol/L (23-31); Chloride 105 mmol/L (98-107); Globulin 2.5 g/dL (2.4-3.5); Glucose 162 mg/dL (83-110); Protein, Total 7.1 g/dL (5.8-8.1); Sodium 142 mmol/L (136-145)
[2022-03-23] MEDS ORDERED: Ketorolac Tromethamine 30 MG/ML VIAL ONE (12:10)
[2022-03-23 17:19] LABS: Bilirubin Negative (Negative); Blood, Urine Negative (Negative); Clarity Clear (Clear); Glucose, Urine (Dipstick) Normal (Negative); Ketone, Urine 10 mg/dL (Negative); Leukocyte Negative Leu/uL (Negative); Nitrite Negative (Negative); Protein, Urine (Dipstick) Negative (Neg-Trace); Specific Gravity, Urine 1.027 (1.002-1.036); Urobilinogen Normal mg/dL (Less than 2); pH, Urine 6.5 (5.0-9.0)
== END 2022-03-23 19:02 ==
LOC: ERS 11:10
DX: R53.1 Weakness (principal); M25.552 Pain in left hip; G89.29 Other chronic pain; M25.512 Pain in left shoulder; J44.9 Chronic obstructive pulmonary disease, unspecified; I10 Essential (primary) hypertension; E78.5 Hyperlipidemia, unspecified; Z87.891 Personal history of nicotine dependence; Z79.82 Long term (current) use of aspirin; Z79.84 Long term (current) use of oral hypoglycemic drugs; Z79.899 Other long term (current) drug therapy; Z96.643 Presence of artificial hip joint, bilateral; W19.XXXA Unspecified fall, initial encounter
CPT/HCPCS: 36415; 51702; 71045; 72170; 80053; 81003; 83880; 84484; 85025; 93005; 96374; J1885

== ENCOUNTER 2022-04-10 14:57 | Emergency (ER) | payer MEDICARE ==
[2022-04-10 18:43] LABS: Bacteria/HPF 4+ HPF (None Seen); Bilirubin Negative (Negative); Blood, Urine 1+ (Negative); Clarity Turbid (Clear); Glucose, Urine (Dipstick) Normal (Negative); Ketone, Urine Negative (Negative); Leukocyte 500 Leu/uL (Negative); Nitrite Negative (Negative); Protein, Urine (Dipstick) 20 mg/dL (Neg-Trace); Squamous Epithelial 0-3 HPF (0-3); Urobilinogen Normal mg/dL (Less than 2); WBC/HPF Greater than 50 HPF (0-3)
== END 2022-04-10 19:32 | disposition home or self-care (01) ==
LOC: ERS 14:57
DX: S39.012A Strain of muscle, fascia and tendon of lower back, initial encounter (principal); X50.9XXA Other and unspecified overexertion or strenuous movements or postures, initial encounter
CPT/HCPCS: 81003; 81015; 87077; 87086; 87186; 99283

== ENCOUNTER 2022-09-08 09:22 | Emergency (ER) | payer MEDICARE ==
[2022-09-08] MEDS ORDERED: Ketorolac Tromethamine 30 MG/ML VIAL ONE (11:02)
== END 2022-09-08 11:46 | disposition home or self-care (01) ==
LOC: ERS 09:22
DX: R07.89 Other chest pain (principal); I10 Essential (primary) hypertension; E78.5 Hyperlipidemia, unspecified; J44.9 Chronic obstructive pulmonary disease, unspecified; Z87.891 Personal history of nicotine dependence; Z79.82 Long term (current) use of aspirin; Z79.84 Long term (current) use of oral hypoglycemic drugs; Z79.899 Other long term (current) drug therapy
CPT/HCPCS: 71045; 96372; J1885

== ENCOUNTER 2022-10-21 11:20 | Inpatient (IN) | payer MEDICARE ==
[2022-10-21 12:05] LABS: #Lymphocytes 0.4 thou/uL (1.20-3.40); #Monocytes 0.8 thou/uL (0.11-0.59); %Basophils 0.1 % (0.0-1.0); %Eosinophils 0.6 % (0.0-10.0); %Lymphocytes 6.5 % (21.0-51.0); %Monocytes 12.2 % (0.0-10.0); %Neutrophils 80.5 % (42.0-75.0); Hemoglobin 13.3 g/dL (14.0-18.0); Mean Corpuscular HGB CONC 32.9 g/dL (32.0-36.0); Mean Corpuscular Hemoglobin 32.2 pg (27.0-31.0); Mean Corpuscular Volume 97.9 fl (78.0-98.0); Mean Platelet Volume 7.2 fL (7.4-10.4); Platelet Count 183 10x3/uL (130-400); RBC Distribution Width 13.2 % (11.5-14.5); Red Blood Cell (RBC) Count 4.12 mill/uL (4.70-6.10); White Blood Cell (WBC) Count 6.3 10x3/uL (4.8-10.8)
[2022-10-21 12:20] LABS: Bilirubin Negative (Negative); Blood, Urine Negative (Negative); Glucose, Urine (Dipstick) Normal (Negative); Ketone, Urine Negative (Negative); Leukocyte 75 Leu/uL (Negative); Nitrite Negative (Negative); Protein, Urine (Dipstick) 10 mg/dL (Neg-Trace); RBC/HPF 0-3 HPF (0-3); Specific Gravity, Urine 1.027 (1.002-1.036); Squamous Epithelial None Seen HPF (0-3); Urobilinogen Normal mg/dL (Less than 2); pH, Urine 6.5 (5.0-9.0)
[2022-10-21 12:21] LABS: Bacteria/HPF 1+ HPF (None Seen); Clarity Hazy (Clear)
[2022-10-21 12:31] LABS: ALT (SGPT) Less than 7 U/L (8-55); AST (SGOT) 16 U/L (5-34); Albumin 4.4 g/dL (3.4-4.8); Alkaline Phosphatase 106 U/L (40-110); Anion Gap 16 mmol/L (10-20); BUN (Urea Nitrogen) 16 mg/dL (8.4-25.7); Bilirubin, Total 0.8 mg/dL (0.2-1.2); Calc. Creatinine Clearance 0 mL/min (70-130); Calcium 9.6 mg/dL (7.8-10.44); Carbon Dioxide 22 mmol/L (23-31); Chloride 103 mmol/L (98-107); Estimated GFR 83; Globulin 2.7 g/dL (2.4-3.5); Glucose 242 mg/dL (83-110); Lipase 17 U/L (8-78); Potassium 3.9 mmol/L (3.5-5.1); Protein, Total 7.1 g/dL (5.8-8.1); Sodium 137 mmol/L (136-145)
[2022-10-21 13:31] LABS: SARS-CoV-2 NAA Rapid Test DETECTED (NotDetected)
[2022-10-21] MEDS ORDERED: Dexamethasone 10 MG/ML VIAL ONE (14:00)
[2022-10-21] MEDS ORDERED: Acetaminophen 650 MG Suppository PR PRN (14:58)
[2022-10-21] MEDS ORDERED: Ondansetron ODT 4 MG TAB PO PRN (14:58)
[2022-10-21] MEDS ORDERED: Ondansetron PF 4 MG/2 ML Vial IVP PRN (14:58)
[2022-10-21 15:13] LABS: Lactic Acid 1.4 mmol/L (0.5-2.2)
[2022-10-21] MEDS ORDERED: Dextrose 5% in Water 1,000 ML IV PRN (15:20)
[2022-10-21] MEDS ORDERED: Insulin Regular 300 UNITS/3 ML VIAL SC PRN (15:20)
[2022-10-21] MEDS ORDERED: Dextrose 50% Abboject 50 ML SYRINGE SLOW IVP PRN (15:20)
[2022-10-21] MEDS: Midodrine HCl 5 MG TAB PO SCH ×2 (18:12→21:40)
[2022-10-21] MEDS: Carbidopa/Levodopa 25-100 mg Tablet PO SCH ×2 (18:35→21:40)
[2022-10-22 01:40] VITALS: BMI 20.9
[2022-10-22 04:57] LABS: #Lymphocytes 0.6 thou/uL (1.20-3.40); #Monocytes 0.5 thou/uL (0.11-0.59); %Eosinophils 0.1 % (0.0-10.0); %Lymphocytes 11.5 % (21.0-51.0); %Monocytes 9.8 % (0.0-10.0); %Neutrophils 78.6 % (42.0-75.0); Mean Corpuscular HGB CONC 33.3 g/dL (32.0-36.0); Mean Corpuscular Hemoglobin 32.3 pg (27.0-31.0); Mean Corpuscular Volume 96.8 fl (78.0-98.0); Mean Platelet Volume 7.5 fL (7.4-10.4); Platelet Count 184 10x3/uL (130-400); Red Blood Cell (RBC) Count 3.73 mill/uL (4.70-6.10); White Blood Cell (WBC) Count 5.1 10x3/uL (4.8-10.8)
[2022-10-22 05:15] LABS: Anion Gap 12 mmol/L (10-20); BUN (Urea Nitrogen) 13 mg/dL (8.4-25.7); Calc. Creatinine Clearance 72 mL/min (70-130); Calcium 9.2 mg/dL (7.8-10.44); Carbon Dioxide 25 mmol/L (23-31); Chloride 104 mmol/L (98-107); Estimated GFR 90; Glucose 152 mg/dL (83-110); Potassium 3.9 mmol/L (3.5-5.1); Sodium 137 mmol/L (136-145)
[2022-10-22] MEDS: Midodrine HCl 5 MG TAB PO SCH ×3 (08:48→20:41)
[2022-10-22] MEDS: Carbidopa/Levodopa 25-100 mg Tablet PO SCH ×4 (08:48→20:44)
[2022-10-22] MEDS ORDERED: Non-Formulary Item 1 EACH (Omeprazole [Omeprazole] 20 MG Tablet.Dr) PO SCH (09:00)
[2022-10-22] MEDS ORDERED: FLU VACC QS2022-23(65YR UP)/PF 240 MCG/0.7 ML SYRINGE IM ONE (09:00)
[2022-10-22] MEDS: Entacapone 200 mg Tablet PO SCH ×4 (09:47→20:44)
[2022-10-22] MEDS: Tamsulosin HCl 0.4 MG CAP PO SCH (09:48)
[2022-10-22] MEDS: Metoprolol Tartrate 25 MG TAB PO SCH ×2 (09:48→20:43)
[2022-10-22] MEDS: Insulin Regular 300 UNITS/3 ML VIAL SC PRN (17:03)
[2022-10-22] MEDS: Multivit, Therapeutic 1 TAB PO SCH (20:43)
[2022-10-22] MEDS: Atorvastatin Calcium 20 MG TAB PO SCH (20:43)
[2022-10-22] MEDS ORDERED: Simvastatin 40 MG TAB PO SCH (21:00)
[2022-10-23] MEDS: Aspirin 81 mg Enteric Coated Tablet PO SCH (08:46)
[2022-10-23] MEDS: Metoprolol Tartrate 25 MG TAB PO SCH ×2 (08:46→21:02)
[2022-10-23] MEDS: Carbidopa/Levodopa 25-100 mg Tablet PO SCH ×4 (08:46→21:12)
[2022-10-23] MEDS: Entacapone 200 mg Tablet PO SCH ×4 (08:47→21:02)
[2022-10-23] MEDS: Tamsulosin HCl 0.4 MG CAP PO SCH (08:47)
[2022-10-23] MEDS: Midodrine HCl 5 MG TAB PO SCH ×3 (08:48→21:02)
[2022-10-23] MEDS: Insulin Regular 300 UNITS/3 ML VIAL SC PRN (17:19)
[2022-10-23] MEDS: Atorvastatin Calcium 20 MG TAB PO SCH (21:02)
[2022-10-23] MEDS: Multivit, Therapeutic 1 TAB PO SCH (21:03)
[2022-10-23] MEDS: Acetaminophen 325 MG TAB PO PRN (21:03)
[2022-10-24] MEDS: Carbidopa/Levodopa 25-100 mg Tablet PO SCH ×4 (08:52→20:37)
[2022-10-24] MEDS: Aspirin 81 mg Enteric Coated Tablet PO SCH (08:52)
[2022-10-24] MEDS: Tamsulosin HCl 0.4 MG CAP PO SCH (08:54)
[2022-10-24] MEDS: Midodrine HCl 5 MG TAB PO SCH ×3 (08:54→20:37)
[2022-10-24] MEDS: Metoprolol Tartrate 25 MG TAB PO SCH ×3 (08:55→20:42)
[2022-10-24] MEDS: Entacapone 200 mg Tablet PO SCH ×4 (08:58→20:37)
[2022-10-24] MEDS: Multivit, Therapeutic 1 TAB PO SCH (20:37)
[2022-10-24] MEDS: Atorvastatin Calcium 20 MG TAB PO SCH (20:37)
[2022-10-25] MEDS: Tamsulosin HCl 0.4 MG CAP PO SCH (08:27)
[2022-10-25] MEDS: Midodrine HCl 5 MG TAB PO SCH ×3 (08:27→20:51)
[2022-10-25] MEDS: Entacapone 200 mg Tablet PO SCH ×4 (08:27→20:51)
[2022-10-25] MEDS: Aspirin 81 mg Enteric Coated Tablet PO SCH (08:27)
[2022-10-25] MEDS: Metoprolol Tartrate 25 MG TAB PO SCH ×2 (08:28→20:52)
[2022-10-25] MEDS: Carbidopa/Levodopa 25-100 mg Tablet PO SCH ×4 (08:28→20:51)
[2022-10-25 14:18] LABS: Hemoglobin 14.5 g/dL (14.0-18.0); Mean Corpuscular HGB CONC 35.1 g/dL (32.0-36.0); Mean Corpuscular Hemoglobin 33.5 pg (27.0-31.0); Mean Corpuscular Volume 95.4 fl (78.0-98.0); Mean Platelet Volume 7.1 fL (7.4-10.4); Platelet Count 246 10x3/uL (130-400); RBC Distribution Width 12.6 % (11.5-14.5); Red Blood Cell (RBC) Count 4.33 mill/uL (4.70-6.10); White Blood Cell (WBC) Count 5.4 10x3/uL (4.8-10.8)
[2022-10-25 14:34] LABS: Anion Gap 13 mmol/L (10-20); BUN (Urea Nitrogen) 17 mg/dL (8.4-25.7); Calc. Creatinine Clearance 69 mL/min (70-130); Calcium 9.8 mg/dL (7.8-10.44); Carbon Dioxide 27 mmol/L (23-31); Chloride 101 mmol/L (98-107); Estimated GFR 89; Glucose 154 mg/dL (83-110); Potassium 4.1 mmol/L (3.5-5.1); Sodium 137 mmol/L (136-145)
[2022-10-25] MEDS: Atorvastatin Calcium 20 MG TAB PO SCH (20:51)
[2022-10-25] MEDS: Multivit, Therapeutic 1 TAB PO SCH (20:51)
[2022-10-26] MEDS: Insulin Regular 300 UNITS/3 ML VIAL SC PRN (05:30)
[2022-10-26] MEDS: Entacapone 200 mg Tablet PO SCH ×4 (08:30→21:29)
[2022-10-26] MEDS: Aspirin 81 mg Enteric Coated Tablet PO SCH (08:30)
[2022-10-26] MEDS: Metoprolol Tartrate 25 MG TAB PO SCH ×2 (08:30→21:32)
[2022-10-26] MEDS: Carbidopa/Levodopa 25-100 mg Tablet PO SCH ×4 (08:30→21:33)
[2022-10-26] MEDS: Tamsulosin HCl 0.4 MG CAP PO SCH (08:30)
[2022-10-26] MEDS: Midodrine HCl 5 MG TAB PO SCH ×3 (08:31→21:33)
[2022-10-26] MEDS: Multivit, Therapeutic 1 TAB PO SCH (21:29)
[2022-10-26] MEDS: Acetaminophen 325 MG TAB PO PRN (21:29)
[2022-10-26] MEDS: Atorvastatin Calcium 20 MG TAB PO SCH (21:33)
[2022-10-27] MEDS: Acetaminophen 325 MG TAB PO PRN (02:28)
[2022-10-27] MEDS: Insulin Regular 300 UNITS/3 ML VIAL SC PRN (05:31)
[2022-10-27] MEDS: Midodrine HCl 5 MG TAB PO SCH ×2 (08:46→14:12)
[2022-10-27] MEDS: Carbidopa/Levodopa 25-100 mg Tablet PO SCH ×3 (08:46→16:06)
[2022-10-27] MEDS: Aspirin 81 mg Enteric Coated Tablet PO SCH (08:47)
[2022-10-27] MEDS: Metoprolol Tartrate 25 MG TAB PO SCH (08:47)
[2022-10-27] MEDS: Tamsulosin HCl 0.4 MG CAP PO SCH (08:47)
[2022-10-27] MEDS: Entacapone 200 mg Tablet PO SCH ×3 (08:48→16:06)
[2022-10-27] MEDS ORDERED: Bisacodyl 10 MG SUPP PR SCH (09:45)
[2022-10-27 19:57] VITALS: BP 116/76; TEMP 97.8
== END 2022-10-27 19:11 | DRG 178 ==
LOC: ERS 11:20 → ERHOLD 14:42 → 2NO 20:17 → OBSVTOIN 10-22 14:46 → T4-A 10-22 18:48
PROVIDERS: ADMIT Internal Medicine; ATTEND Internal Medicine
PROC: 8E0ZXY6 Isolation (ICD-10-PCS; principal; 2022-10-22)
DX: U07.1 COVID-19 (principal); I25.810 Atherosclerosis of coronary artery bypass graft(s) without angina pectoris; G20 Parkinson's disease; E11.9 Type 2 diabetes mellitus without complications; F02.80 Dementia in other diseases classified elsewhere, unspecified severity, without behavioral disturbance, psychotic disturbance, mood disturbance, and anxiety; K21.9 Gastro-esophageal reflux disease without esophagitis; E78.5 Hyperlipidemia, unspecified; N40.0 Benign prostatic hyperplasia without lower urinary tract symptoms; J44.9 Chronic obstructive pulmonary disease, unspecified; E78.2 Mixed hyperlipidemia; Z87.891 Personal history of nicotine dependence; Z95.0 Presence of cardiac pacemaker; Z79.899 Other long term (current) drug therapy
CPT/HCPCS: 36415; 36416; 71045; 80048; 80053; 81003; 81015; 83605; 83690; 83880; 84484; 85025; 85027; 87040; 87086; 93005; 94760; 96374; G0378; J1100; J1815

== ENCOUNTER 2023-07-02 14:59 | Emergency (ER) | payer MEDICARE ==
[2023-07-02] MEDS ORDERED: Iopamidol-370 76% 500 ML MDV (1 ML CHARGE) ONE (15:10)
[2023-07-02 15:57] LABS: #Eosinphils 0.1 thou/uL (0.0-0.7); #Monocytes 0.8 thou/uL (0.11-0.59); #Neutrophils 5.5 thou/uL (1.40-6.50); %Basophils 0.1 % (0.0-1.0); %Eosinophils 0.8 % (0.0-10.0); %Lymphocytes 14.1 % (21.0-51.0); %Monocytes 10.9 % (0.0-10.0); %Neutrophils 73.8 % (42.0-75.0); Hematocrit 38.4 % (42.0-52.0); Hemoglobin 12.9 g/dL (14.0-18.0); Mean Corpuscular HGB CONC 33.6 g/dL (32.0-36.0); Mean Corpuscular Hemoglobin 31.3 pg (27.0-31.0); Mean Corpuscular Volume 93.2 fl (78.0-98.0); Mean Platelet Volume 9.4 fL (7.4-10.4); Platelet Count 276 10x3/uL (130-400); RBC Distribution Width 13.6 % (11.5-14.5); Red Blood Cell (RBC) Count 4.12 mill/uL (4.70-6.10); White Blood Cell (WBC) Count 7.5 10x3/uL (4.8-10.8)
[2023-07-02 16:20] LABS: ALT (SGPT) Less than 7 U/L (8-55); AST (SGOT) 13 U/L (5-34); Albumin 4.1 g/dL (3.4-4.8); Alkaline Phosphatase 142 U/L (40-110); Anion Gap 14 mmol/L (10-20); BUN (Urea Nitrogen) 17 mg/dL (8.4-25.7); Bilirubin, Total 0.4 mg/dL (0.2-1.2); Calc. Creatinine Clearance 0 mL/min (70-130); Calcium 9.9 mg/dL (7.8-10.44); Carbon Dioxide 25 mmol/L (23-31); Chloride 102 mmol/L (98-107); Estimated GFR 67; Globulin 2.7 g/dL (2.4-3.5); Glucose 106 mg/dL (83-110); Lipase 13 U/L (8-78); Potassium 4.7 mmol/L (3.5-5.1); Protein, Total 6.8 g/dL (5.8-8.1); Sodium 136 mmol/L (136-145)
[2023-07-02 16:24] LABS: Troponin I Less than 0.010 ng/mL (< 0.028)
[2023-07-02 18:41] LABS: Bacteria/HPF 2+ HPF (None Seen); Bilirubin Negative (Negative); Blood, Urine Trace (Negative); CAUTI Indications for Culture Pelvic or flank pain; Clarity Clear (Clear); Glucose, Urine (Dipstick) Normal (Negative); Ketone, Urine Negative (Negative); Leukocyte 500 Leu/uL (Negative); Nitrite 1+ (Negative); Protein, Urine (Dipstick) 10 mg/dL (Neg-Trace); Specific Gravity, Urine 1.045 (1.002-1.036); Squamous Epithelial 0-3 HPF (0-3); Urobilinogen Normal mg/dL (Less than 2); WBC/HPF 21-50 HPF (0-3)
[2023-07-02 18:42] LABS: Urine Culture Reflex Yes Yes
[2023-07-02] MEDS ORDERED: Acetaminophen 500 MG TAB ONE ×2 (19:56)
== END 2023-07-02 20:02 | disposition home or self-care (01) ==
LOC: ERS 14:59
DX: N39.0 Urinary tract infection, site not specified (principal); K40.90 Unilateral inguinal hernia, without obstruction or gangrene, not specified as recurrent; N20.0 Calculus of kidney; J44.9 Chronic obstructive pulmonary disease, unspecified; I10 Essential (primary) hypertension; E78.5 Hyperlipidemia, unspecified; Z87.891 Personal history of nicotine dependence; Z79.82 Long term (current) use of aspirin; Z79.84 Long term (current) use of oral hypoglycemic drugs; Z79.899 Other long term (current) drug therapy
CPT/HCPCS: 74177; 80053; 81001; 83605; 83690; 84484; 85025; 87077; 87086; 93005; 96360; Q9967

== ENCOUNTER 2023-08-23 14:21 | Inpatient (IN) | payer MEDICARE ==
[~2023-08-23 14:21] MED LIST: Iopamidol-370 76% 500 ML MDV (1 ML CHARGE) ONE
[2023-08-23 15:03] LABS: #Monocytes 0.9 thou/uL (0.11-0.59); #Neutrophils 9.1 thou/uL (1.40-6.50); %Basophils 0.1 % (0.0-1.0); %Lymphocytes 5.1 % (21.0-51.0); %Monocytes 8.8 % (0.0-10.0); %Neutrophils 85.7 % (42.0-75.0); Hematocrit 33.8 % (42.0-52.0); Hemoglobin 11.1 g/dL (14.0-18.0); Mean Corpuscular HGB CONC 32.8 g/dL (32.0-36.0); Mean Corpuscular Hemoglobin 31.5 pg (27.0-31.0); Mean Platelet Volume 9.4 fL (7.4-10.4); Platelet Count 308 10x3/uL (130-400); RBC Distribution Width 13.9 % (11.5-14.5); Red Blood Cell (RBC) Count 3.52 mill/uL (4.70-6.10); White Blood Cell (WBC) Count 10.6 10x3/uL (4.8-10.8)
[2023-08-23] MEDS ORDERED: Sodium Chloride 0.9% 100 ML ONE (15:03)
[2023-08-23] MEDS ORDERED: Azithromycin 500 MG VIAL ONE (15:03)
[2023-08-23] MEDS ORDERED: Cefepime 2 GM VIAL ONE (15:04)
[2023-08-23] MEDS ORDERED: Vancomycin (BATCH) 1.5 GM in Premix 1 BAG IVPB SCH (15:15)
[2023-08-23 15:28] LABS: INR-International Normal Ratio 1.1; PTT 37.3 sec (22.9-36.1)
[2023-08-23 15:37] LABS: ALT (SGPT) 9 U/L (8-55); AST (SGOT) 15 U/L (5-34); Albumin 3.9 g/dL (3.4-4.8); Alkaline Phosphatase 152 U/L (40-110); Anion Gap 20 mmol/L (10-20); BUN (Urea Nitrogen) 23 mg/dL (8.4-25.7); Bilirubin, Total 0.4 mg/dL (0.2-1.2); Calc. Creatinine Clearance 0 mL/min (70-130); Calcium 9.9 mg/dL (7.8-10.44); Carbon Dioxide 20 mmol/L (23-31); Chloride 109 mmol/L (98-107); Estimated GFR 88; Globulin 2.9 g/dL (2.4-3.5); Glucose 163 mg/dL (83-110); Magnesium 1.9 mg/dL (1.6-2.6); Protein, Total 6.8 g/dL (5.8-8.1); Sodium 145 mmol/L (136-145)
[2023-08-23 15:39] LABS: Troponin I Less than 0.010 ng/mL (< 0.028)
[2023-08-23 17:04] LABS: Bacteria/HPF 2+ HPF (None Seen); Bilirubin Negative (Negative); Blood, Urine Trace (Negative); CAUTI Indications for Culture Alt mental st,lethar; Clarity Turbid (Clear); Glucose, Urine (Dipstick) Normal (Negative); Ketone, Urine Negative (Negative); Leukocyte 500 Leu/uL (Negative); Nitrite 2+ (Negative); Protein, Urine (Dipstick) 30 mg/dL (Neg-Trace); Specific Gravity, Urine 1.034 (1.002-1.036); Squamous Epithelial None Seen HPF (0-3); Urobilinogen Normal mg/dL (Less than 2); WBC/HPF Greater than 50 HPF (0-3)
[2023-08-23 17:06] LABS: Urine Culture Reflex Yes Yes
[2023-08-23] MEDS ORDERED: Ipratropium/Albuterol 3 ML NEB NEB PRN (18:01)
[2023-08-23 18:15] LABS: SARS-CoV-2 NAA Rapid Test Not Detected (NotDetected)
[2023-08-23] MEDS: Cholecalciferol 1,000 UNITS (25 MCG) TAB PO SCH (21:02)
[2023-08-23] MEDS ORDERED: Glucagon 1 MG/ML KIT IM PRN (21:10)
[2023-08-23] MEDS ORDERED: Dextrose 50% Abboject 50 ML SYRINGE SLOW IVP PRN (21:10)
[2023-08-23] MEDS ORDERED: Acetaminophen 325 MG TAB PO PRN (21:10)
[2023-08-23] MEDS ORDERED: Dextrose 5% in Water 1,000 ML IV PRN (21:10)
[2023-08-23] MEDS ORDERED: Alendronate Sodium 70 mg Tablet PO SCH (21:10)
[2023-08-23] MEDS ORDERED: Vancomycin 1 GM in Premix 1 BAG IVPB SCH (21:10)
[2023-08-23] MEDS ORDERED: HumaLOG 300 UNITS/3 ML VIAL SC PRN (21:10)
[2023-08-23] MEDS: Carbidopa/Levodopa 25-100 mg Tablet PO SCH (21:20)
[2023-08-23] MEDS: Entacapone 200 mg Tablet PO SCH (21:28)
[2023-08-23] MEDS: Metoprolol Tartrate 25 MG TAB PO SCH (21:28)
[2023-08-23] MEDS: Multivit, Therapeutic 1 TAB PO SCH (21:29)
[2023-08-23 22:33] VITALS: BMI 16.0
[2023-08-24] MEDS: Cefepime 2 GM in Sodium Chloride 0.9% 100 ML IVPB SCH ×2 (03:49→14:50)
[2023-08-24] MEDS: Vancomycin HCl 750 MG in Sodium Chloride 0.9% 250 ML 250 ML IVPB SCH ×2 (04:50→16:42)
[2023-08-24] MEDS ORDERED: FLU VACC QS2023(65UP)/MF59C/PF 60 MCG/0.5 ML SYRINGE IM ONE (09:00)
[2023-08-24 10:41] LABS: #Monocytes 0.6 thou/uL (0.11-0.59); %Basophils 0.2 % (0.0-1.0); %Lymphocytes 2.3 % (21.0-51.0); %Monocytes 4.8 % (0.0-10.0); %Neutrophils 92.3 % (42.0-75.0); Hematocrit 33.9 % (42.0-52.0); Hemoglobin 11.1 g/dL (14.0-18.0); Mean Corpuscular HGB CONC 32.7 g/dL (32.0-36.0); Mean Corpuscular Hemoglobin 31.4 pg (27.0-31.0); Mean Corpuscular Volume 95.8 fl (78.0-98.0); Mean Platelet Volume 9.2 fL (7.4-10.4); Platelet Count 293 10x3/uL (130-400); RBC Distribution Width 13.8 % (11.5-14.5); Red Blood Cell (RBC) Count 3.54 mill/uL (4.70-6.10); White Blood Cell (WBC) Count 11.9 10x3/uL (4.8-10.8)
[2023-08-24 11:15] LABS: Anion Gap 15 mmol/L (10-20); BUN (Urea Nitrogen) 17 mg/dL (8.4-25.7); Calc. Creatinine Clearance 63 mL/min (70-130); Calcium 9.6 mg/dL (7.8-10.44); Carbon Dioxide 23 mmol/L (23-31); Chloride 110 mmol/L (98-107); Estimated GFR 92; Glucose 163 mg/dL (83-110); Potassium 3.8 mmol/L (3.5-5.1); Sodium 144 mmol/L (136-145)
[2023-08-24] MEDS: Tamsulosin HCl 0.4 MG CAP PO SCH (13:32)
[2023-08-24] MEDS: Cholecalciferol 1,000 UNITS (25 MCG) TAB PO SCH ×2 (13:33→21:43)
[2023-08-24] MEDS: Metoprolol Tartrate 25 MG TAB PO SCH ×2 (13:33→21:45)
[2023-08-24] MEDS: Calcium Carbonate 500 MG TAB PO SCH (13:33)
[2023-08-24] MEDS: Midodrine HCl 5 MG TAB PO SCH ×3 (13:33→21:42)
[2023-08-24] MEDS: Aspirin 81 mg Enteric Coated Tablet PO SCH (13:34)
[2023-08-24] MEDS: Carbidopa/Levodopa 25-100 mg Tablet PO SCH ×4 (13:34→21:43)
[2023-08-24] MEDS: metFORMIN 500 MG TAB PO SCH ×2 (13:34→16:43)
[2023-08-24] MEDS: Entacapone 200 mg Tablet PO SCH ×4 (13:34→21:59)
[2023-08-24] MEDS: Azithromycin 500 MG in Sodium Chloride 0.9% 250 ML 250 ML IVPB SCH (14:51)
[2023-08-24] MEDS ORDERED: Ferrous Sulfate 325 MG TAB PO SCH (17:00)
[2023-08-24] MEDS: Atorvastatin Calcium 20 MG TAB PO SCH (21:42)
[2023-08-24] MEDS: Multivit, Therapeutic 1 TAB PO SCH (21:43)
[2023-08-25] MEDS: Cefepime 2 GM in Sodium Chloride 0.9% 100 ML IVPB SCH (03:51)
[2023-08-25] MEDS: Vancomycin HCl 750 MG in Sodium Chloride 0.9% 250 ML 250 ML IVPB SCH (04:38)
[2023-08-25] MEDS ORDERED: Vancomycin 1 GM in Premix 1 BAG IVPB SCH (05:00)
[2023-08-25] MEDS: Entacapone 200 mg Tablet PO SCH ×4 (08:43→21:12)
[2023-08-25] MEDS: Midodrine HCl 5 MG TAB PO SCH ×3 (08:44→21:12)
[2023-08-25] MEDS: Calcium Carbonate 500 MG TAB PO SCH (08:44)
[2023-08-25] MEDS: Carbidopa/Levodopa 25-100 mg Tablet PO SCH ×4 (08:44→21:12)
[2023-08-25] MEDS: metFORMIN 500 MG TAB PO SCH ×2 (08:44→17:12)
[2023-08-25] MEDS: Metoprolol Tartrate 25 MG TAB PO SCH ×2 (08:45→21:12)
[2023-08-25] MEDS: Aspirin 81 mg Enteric Coated Tablet PO SCH (08:45)
[2023-08-25] MEDS: Cholecalciferol 1,000 UNITS (25 MCG) TAB PO SCH ×2 (08:45→21:12)
[2023-08-25] MEDS: Tamsulosin HCl 0.4 MG CAP PO SCH (08:45)
[2023-08-25 09:26] LABS: #Monocytes 0.8 thou/uL (0.11-0.59); #Neutrophils 13.6 thou/uL (1.40-6.50); %Basophils 0.1 % (0.0-1.0); %Lymphocytes 3.1 % (21.0-51.0); %Monocytes 5.3 % (0.0-10.0); Hematocrit 35.2 % (42.0-52.0); Hemoglobin 11.3 g/dL (14.0-18.0); Mean Corpuscular HGB CONC 32.1 g/dL (32.0-36.0); Mean Corpuscular Hemoglobin 31.1 pg (27.0-31.0); Mean Platelet Volume 9.5 fL (7.4-10.4); Platelet Count 330 10x3/uL (130-400); RBC Distribution Width 14.2 % (11.5-14.5); Red Blood Cell (RBC) Count 3.63 mill/uL (4.70-6.10)
[2023-08-25 09:56] LABS: Anion Gap 15 mmol/L (10-20); BUN (Urea Nitrogen) 21 mg/dL (8.4-25.7); Calc. Creatinine Clearance 56 mL/min (70-130); Calcium 9.6 mg/dL (7.8-10.44); Carbon Dioxide 25 mmol/L (23-31); Chloride 112 mmol/L (98-107); Estimated GFR 89; Glucose 189 mg/dL (83-110); Potassium 3.9 mmol/L (3.5-5.1); Sodium 148 mmol/L (136-145)
[2023-08-25] MEDS ORDERED: Vancomycin HCl 750 MG in Sodium Chloride 0.9% 250 ML 250 ML IVPB SCH (13:00)
[2023-08-25] MEDS ORDERED: Dextrose 5% in Water 1,000 ML IV SCH ×2 (13:15→13:21)
[2023-08-25] MEDS ORDERED: cefTRIAXone\\ROCEPHIN 1 GM in Sodium Chloride 0.9% 100 ML IVPB SCH (15:00)
[2023-08-25] MEDS: Azithromycin 500 MG in Sodium Chloride 0.9% 250 ML 250 ML IVPB SCH (16:12)
[2023-08-25] MEDS: Atorvastatin Calcium 20 MG TAB PO SCH (21:11)
[2023-08-25] MEDS: Multivit, Therapeutic 1 TAB PO SCH (21:12)
[2023-08-25] MEDS: Dextrose 5% in Water 1,000 ML IV SCH ×2 (22:14→23:24)
[2023-08-26 07:48] LABS: #Eosinphils 0.1 thou/uL (0.0-0.7); #Monocytes 0.8 thou/uL (0.11-0.59); #Neutrophils 9.4 thou/uL (1.40-6.50); %Basophils 0.1 % (0.0-1.0); %Eosinophils 0.5 % (0.0-10.0); %Lymphocytes 6.1 % (21.0-51.0); %Monocytes 7.1 % (0.0-10.0); %Neutrophils 85.7 % (42.0-75.0); Hematocrit 33.6 % (42.0-52.0); Hemoglobin 10.8 g/dL (14.0-18.0); Mean Corpuscular HGB CONC 32.1 g/dL (32.0-36.0); Mean Corpuscular Hemoglobin 31.3 pg (27.0-31.0); Mean Corpuscular Volume 97.4 fl (78.0-98.0); Mean Platelet Volume 9.7 fL (7.4-10.4); Platelet Count 296 10x3/uL (130-400); Red Blood Cell (RBC) Count 3.45 mill/uL (4.70-6.10); White Blood Cell (WBC) Count 10.9 10x3/uL (4.8-10.8)
[2023-08-26 08:29] LABS: Anion Gap 15 mmol/L (10-20); BUN (Urea Nitrogen) 20 mg/dL (8.4-25.7); Calc. Creatinine Clearance 64 mL/min (70-130); Calcium 8.8 mg/dL (7.8-10.44); Carbon Dioxide 24 mmol/L (23-31); Chloride 108 mmol/L (98-107); Estimated GFR 93; Glucose 150 mg/dL (83-110); Potassium 3.4 mmol/L (3.5-5.1); Sodium 144 mmol/L (136-145)
[2023-08-26] MEDS: Aspirin 81 mg Enteric Coated Tablet PO SCH (09:07)
[2023-08-26] MEDS: Cholecalciferol 1,000 UNITS (25 MCG) TAB PO SCH ×2 (09:07→20:30)
[2023-08-26] MEDS: Tamsulosin HCl 0.4 MG CAP PO SCH (09:07)
[2023-08-26] MEDS: Metoprolol Tartrate 25 MG TAB PO SCH ×2 (09:07→20:31)
[2023-08-26] MEDS: metFORMIN 500 MG TAB PO SCH ×2 (09:07→17:22)
[2023-08-26] MEDS: Entacapone 200 mg Tablet PO SCH ×4 (09:07→20:30)
[2023-08-26] MEDS: Carbidopa/Levodopa 25-100 mg Tablet PO SCH ×4 (09:07→20:30)
[2023-08-26] MEDS: Midodrine HCl 5 MG TAB PO SCH ×3 (09:08→20:31)
[2023-08-26] MEDS: Calcium Carbonate 500 MG TAB PO SCH (09:12)
[2023-08-26] MEDS ORDERED: Potassium Bicarbonate/Cit Ac 20 MEQ TAB PO SCH (10:15)
[2023-08-26] MEDS ORDERED: Cefepime 1 GM in Sodium Chloride 0.9% 100 ML IVPB SCH (10:30)
[2023-08-26] MEDS: Lactated Ringer's 1,000 ML IV SCH ×2 (13:04→20:51)
[2023-08-26] MEDS: Azithromycin 500 MG in Sodium Chloride 0.9% 250 ML 250 ML IVPB SCH (17:22)
[2023-08-26] MEDS: Cefepime 1 GM in Sodium Chloride 0.9% 100 ML IVPB SCH (20:29)
[2023-08-26] MEDS: Atorvastatin Calcium 20 MG TAB PO SCH (20:31)
[2023-08-26] MEDS: Multivit, Therapeutic 1 TAB PO SCH (20:31)
[2023-08-27 06:11] LABS: #Eosinphils 0.1 thou/uL (0.0-0.7); #Monocytes 0.6 thou/uL (0.11-0.59); %Basophils 0.1 % (0.0-1.0); %Eosinophils 1.2 % (0.0-10.0); %Lymphocytes 8.1 % (21.0-51.0); Hematocrit 33.4 % (42.0-52.0); Hemoglobin 10.7 g/dL (14.0-18.0); Mean Corpuscular Hemoglobin 31.3 pg (27.0-31.0); Mean Corpuscular Volume 97.7 fl (78.0-98.0); Mean Platelet Volume 9.7 fL (7.4-10.4); Platelet Count 284 10x3/uL (130-400); RBC Distribution Width 13.7 % (11.5-14.5); Red Blood Cell (RBC) Count 3.42 mill/uL (4.70-6.10); White Blood Cell (WBC) Count 9.5 10x3/uL (4.8-10.8)
[2023-08-27 06:36] LABS: Anion Gap 10 mmol/L (10-20); BUN (Urea Nitrogen) 20 mg/dL (8.4-25.7); Calc. Creatinine Clearance 63 mL/min (70-130); Calcium 9.2 mg/dL (7.8-10.44); Carbon Dioxide 28 mmol/L (23-31); Chloride 105 mmol/L (98-107); Estimated GFR 92; Glucose 150 mg/dL (83-110); Magnesium 1.8 mg/dL (1.6-2.6); Potassium 3.4 mmol/L (3.5-5.1); Sodium 140 mmol/L (136-145)
[2023-08-27] MEDS ORDERED: Magnesium 2 GM/50 ML(in water) 2 GM in Premix 1 BAG IVPB SCH (08:30)
[2023-08-27] MEDS ORDERED: Potassium Bicarbonate/Cit Ac 20 MEQ TAB PO SCH (08:30)
[2023-08-27] MEDS: Cefepime 1 GM in Sodium Chloride 0.9% 100 ML IVPB SCH ×2 (08:58→20:47)
[2023-08-27] MEDS: Carbidopa/Levodopa 25-100 mg Tablet PO SCH ×4 (08:58→20:48)
[2023-08-27] MEDS: Aspirin 81 mg Enteric Coated Tablet PO SCH (08:58)
[2023-08-27] MEDS: Calcium Carbonate 500 MG TAB PO SCH (08:58)
[2023-08-27] MEDS: Metoprolol Tartrate 25 MG TAB PO SCH ×3 (08:58→20:49)
[2023-08-27] MEDS: Cholecalciferol 1,000 UNITS (25 MCG) TAB PO SCH ×2 (08:59→20:48)
[2023-08-27] MEDS: Entacapone 200 mg Tablet PO SCH ×4 (08:59→20:48)
[2023-08-27] MEDS: Tamsulosin HCl 0.4 MG CAP PO SCH (08:59)
[2023-08-27] MEDS: metFORMIN 500 MG TAB PO SCH ×2 (08:59→18:21)
[2023-08-27] MEDS: Midodrine HCl 5 MG TAB PO SCH ×3 (08:59→20:47)
[2023-08-27] MEDS: Azithromycin 500 MG in Sodium Chloride 0.9% 250 ML 250 ML IVPB SCH (14:22)
[2023-08-27] MEDS: Atorvastatin Calcium 20 MG TAB PO SCH (20:48)
[2023-08-27] MEDS: Multivit, Therapeutic 1 TAB PO SCH (20:48)
[2023-08-28 06:49] LABS: Anion Gap 15 mmol/L (10-20); BUN (Urea Nitrogen) 17 mg/dL (8.4-25.7); Calc. Creatinine Clearance 63 mL/min (70-130); Calcium 8.8 mg/dL (7.8-10.44); Carbon Dioxide 26 mmol/L (23-31); Chloride 102 mmol/L (98-107); Estimated GFR 92; Glucose 125 mg/dL (83-110); Potassium 3.9 mmol/L (3.5-5.1); Sodium 139 mmol/L (136-145)
[2023-08-28] MEDS: Tamsulosin HCl 0.4 MG CAP PO SCH (10:14)
[2023-08-28] MEDS: Cholecalciferol 1,000 UNITS (25 MCG) TAB PO SCH (10:14)
[2023-08-28] MEDS: metFORMIN 500 MG TAB PO SCH (10:14)
[2023-08-28] MEDS: Midodrine HCl 5 MG TAB PO SCH ×2 (10:14→14:56)
[2023-08-28] MEDS: Entacapone 200 mg Tablet PO SCH ×3 (10:14→14:57)
[2023-08-28] MEDS: Calcium Carbonate 500 MG TAB PO SCH (10:15)
[2023-08-28] MEDS: Metoprolol Tartrate 25 MG TAB PO SCH (10:15)
[2023-08-28] MEDS: Aspirin 81 mg Enteric Coated Tablet PO SCH (10:15)
[2023-08-28] MEDS: Carbidopa/Levodopa 25-100 mg Tablet PO SCH ×3 (10:15→14:56)
[2023-08-28] MEDS: Cefepime 1 GM in Sodium Chloride 0.9% 100 ML IVPB SCH (10:15)
[2023-08-28] MEDS: Azithromycin 500 MG in Sodium Chloride 0.9% 250 ML 250 ML IVPB SCH (14:56)
[2023-08-28 16:17] VITALS: BP 91/61; TEMP 98.7
== END 2023-08-28 18:00 | disposition hospice, home (50) | DRG 871 ==
LOC: ERS 14:21 → T4-B 17:47
PROVIDERS: ADMIT Internal Medicine; ATTEND Internal Medicine
DX: A41.9 Sepsis, unspecified organism (principal); J18.9 Pneumonia, unspecified organism; J69.0 Pneumonitis due to inhalation of food and vomit; J96.01 Acute respiratory failure with hypoxia; N39.0 Urinary tract infection, site not specified; E87.0 Hyperosmolality and hypernatremia; E44.0 Moderate protein-calorie malnutrition; Z68.1 Body mass index [BMI] 19.9 or less, adult; J44.0 Chronic obstructive pulmonary disease with (acute) lower respiratory infection; E78.5 Hyperlipidemia, unspecified; I10 Essential (primary) hypertension; Z96.649 Presence of unspecified artificial hip joint; K21.9 Gastro-esophageal reflux disease without esophagitis; Z66 Do not resuscitate; E11.9 Type 2 diabetes mellitus without complications; I25.10 Atherosclerotic heart disease of native coronary artery without angina pectoris; R31.0 Gross hematuria; G20.A1 Parkinson's disease without dyskinesia, without mention of fluctuations; Z95.1 Presence of aortocoronary bypass graft; Z95.2 Presence of prosthetic heart valve; Z86.16 Personal history of COVID-19; Z87.891 Personal history of nicotine dependence; Z79.84 Long term (current) use of oral hypoglycemic drugs; Z79.82 Long term (current) use of aspirin; Z79.899 Other long term (current) drug therapy; Z11.52 Encounter for screening for COVID-19
CPT/HCPCS: 36415; 36416; 70491; 71045; 71260; 80048; 80053; 80202; 81001; 83605; 83735; 84484; 85025; 85610; 85730; 87040; 87077; 87081; 87086; 87186; 93005; 94760; 96365; 96366; 96367; J0456; J0692; J0696; J3370; J3370-JW; J3475; J3490; J7050; J7070; J7120; Q9967